=== PATIENT | male | born 1960 | race Two or more races ===

== ENCOUNTER 2016-11-22 05:55 | Inpatient (IN) | payer OTHER, SELFPAY ==
[~2016-11-22] VITALS: Ht 165.1 cm; Wt 75.3 kg
[~2016-11-22 05:55] MED LIST: /AMLO25TA OR; ASPI325T5 PO; FLAG500T PO; LISI20TA PO; NAPRPOW4 PO; NICO21PAT EXT; PERCOCET OR; [UNRECOGNIZED DRUG - REMARK]
[2016-11-22 06:51] LABS: ADD MANUAL DIFFER YES; MEAN CORPUSCULAR HEMOGLOBIN 40.5 pg (27.0-33.0); MEAN CORPUSCULAR HGB CONC 33.9 g/dl (32.0-36.5); MEAN CORPUSCULAR VOLUME 119.5 fl (80.0-96.0); PLATELET COUNT, AUTOMATED 242 k/mm3 (150-450); RED CELL DISTRIBUTION WIDTH 15.2 % (11.5-14.5); WHITE BLOOD COUNT 15.4 K/mm3 (4.0-10.0)
[2016-11-22 06:54] LABS: ALBUMIN 1.5 GM/DL (3.2-5.2); ALBUMIN/GLOBULIN RATIO 0.26 (1.00-1.93); ALKALINE PHOSPHATASE 211 U/L (45-117); ALT/SGPT 34 U/L (12-78); AMYLASE 34 U/L (25-115); ANION GAP 13 MEQ/L (8-16); AST/SGOT 199 U/L (15-37); BILIRUBIN,DIRECT 8.1 MG/DL (0.0-0.2); BILIRUBIN,TOTAL 11.9 MG/DL (0.2-1.0); BLOOD UREA NITROGEN 18 MG/DL (7-18); CALCIUM LEVEL 7.7 MG/DL (8.5-10.1); CARBON DIOXIDE LEVEL 29 MEQ/L (21-32); CHLORIDE LEVEL 87 MEQ/L (98-107); CREATININE FOR GFR 0.96 MG/DL (0.70-1.30); GLOMERULAR FILTRATION RATE > 60.0 (>56); GLUCOSE, FASTING 94 MG/DL (70-105); POTASSIUM SERUM 3.1 MEQ/L (3.5-5.1); SODIUM LEVEL 129 MEQ/L (136-145); TOTAL PROTEIN 7.3 GM/DL (6.4-8.2)
[2016-11-22 07:22] LABS: EOSINOPHILS 1 % (0-5)
[2016-11-22 07:23] LABS: HYPERSEGMENTED POLYS 1+; PLATELET CLUMPS SMALL AMT
[2016-11-22] MEDS ORDERED: NS 500 ML IV ONE (07:30)
--- NOTE | 2016-11-22 07:47 | ECGEPIP ---
Stationary ECG Study [facility] - ED Test Date: 2016-11-22 Pat Name: ASIF JOSHI Department: Room: - Gender: M [employer]: jax : 1960 Requested By: OLGA Harrington Order Number: [id number] Reading MD: Karla Love Measurements Intervals [place] Rate: 101 P: 56 WA: 180 QRS: 55 QRSD: 83 T: 52 QT: 370 QTc: 480 Interpretive Statements SINUS TACHYCARDIA ABNORMAL RHYTHM ECG RIGHT VENTRICULAR CONDUCTION DELAY NO PRIOR FOR COMPARISON Electronically Signed On 11-22-2016 7:47:17 EDT by Karla Love
[2016-11-22 08:22] LABS: INR 1.38
--- NOTE | 2016-11-22 08:28 | REP ---
Clinical: Epigastric and abdominal pain. Technique: Upright view of the chest with supine and upright views of the abdomen and pelvis. Findings: Frontal upright view of the chest demonstrates no acute cardiopulmonary process or free air below the diaphragm to suspect pneumoperitoneum. Supine and upright views of the abdomen and pelvis demonstrate nonspecific bowel gas pattern without obstruction or perforation. No organomegaly. No abnormal calcifications. Skeletal structures normal for age. Impression: Nonspecific bowel gas pattern. Signed by Guillermo Robertson MD 11/22/2016 08:20 A
[2016-11-22] MEDS ORDERED: POTASSIUM CHLORIDE 10 MEQ SR TABLET PO SCH (09:00)
--- NOTE | 2016-11-22 09:25 | REP ---
Clinical: Acute abdominal pain. Technique: Clark scale ultrasound using curved array transducer. Findings: The liver is increased echogenicity consistent with fatty infiltration. Moderate amount of ascites noted throughout the visualized upper abdomen. The pancreas is incompletely evaluated due to interposed bowel gas. The gallbladder demonstrates echogenic material without shadowing most likely representing tumor effective sludge and small stones. Mild gallbladder wall thickening to 4 mm is appreciated. No biliary ductal dilatation is identified and the common bile duct measures 3 mm diameter. The right kidney is normal in reniform shape and appearance without hydronephrosis and measures 11.3 x 6.0 x 5.4 cm. Impression: 1. Gallbladder with presumed tumefactive sludge and mild wall thickening which may be secondary to chronic ascites. No biliary ductal dilatation. 2. Fatty infiltration to the liver. 3. Moderate ascites. Signed by Guillermo Robertson MD 11/22/2016 09:17 A
--- NOTE | 2016-11-22 09:35 | REP ---
SCROTAL SONOGRAPHY: HISTORY: Testicular pain. FINDINGS: Testicular parenchyma is homogeneous bilaterally. There is one microcalcification in the right testis. There are small bilateral hydroceles. There is a 2 mm cyst in the head of the epididymis on each side. No intratesticular mass lesion is seen. Testicular Doppler flow is normal bilaterally. The resistive index on the right is 0.33 and that on the left is 0.41 by Doppler. Right testicular dimensions are 4.0 x 1.6 x 3.2 cm. Left testis measures 4.1 x 1.7 x 2.5 cm. IMPRESSION: Unremarkable scrotal sonography. No significant abnormality noted. Signed by Chacorta Bal MD 11/22/2016 05:09 P
[2016-11-22] MEDS ORDERED: ONDANSETRON 4MG/2ML VIAL (J2405) IV PRN (12:30)
[2016-11-22 13:50] LABS: LDH, BODY FLUID 66 U/L (NOT ESTABLISHED); TOTAL PROTEIN, BODY FLUID 1.8 G/DL (NOT ESTABLISHED)
[2016-11-22 15:15] VITALS: BP 130/70
[2016-11-22] MEDS ORDERED: OXAZEPAM 10 MG CAP PO PRN (15:15)
[2016-11-22] MEDS ORDERED: POTASSIUM CHLORIDE 10 MEQ SR TABLET PO ONE (15:15)
[2016-11-22 15:37] VITALS: BP 118/60
[2016-11-22] MEDS: THIAMINE 100 MG TAB PO SCH (15:50)
[2016-11-22] MEDS: SPIRONOLACTONE 50 MG TAB PO SCH (15:50)
[2016-11-22] MEDS: FUROSEMIDE 40 MG/4 ML VIAL (J1940) IV SCH (15:50)
[2016-11-22] MEDS: LACTULOSE 20 GM/30 ML SYRUP UD PO PRN (15:50)
[2016-11-22] MEDS: FOLIC ACID 1 MG TAB PO SCH (15:51)
--- NOTE | 2016-11-22 16:30 | REP ---
ULTRASOUND GUIDED PARACENTESIS: The procedure was performed under the direct supervision of Dr. Bal. The risks and benefits of the procedure were explained to the patient and informed consent was obtained. The largest pocket of fluid was localized in the left flank using ultrasound guidance. The skin was prepped and draped in a sterile fashion. 1% Lidocaine was used as a local anesthetic. An 8-Irish [id number] catheter was inserted using trocar technique. 2850 mL of yellow-green fluid was withdrawn with a sample sent to the lab for analysis. The patient tolerated the procedure well and there were no immediate complications. Reviewed by ALFREDO English 11/22/2016 04:39 PEdited and Signed by Chacorta Bal MD 11/22/2016 04:54 P
--- NOTE | 2016-11-22 16:33 | HPE ---
DATE OF ADMISSION: 11/22/2016 PRIMARY CARE PROVIDER: 's Administration CHIEF COMPLAINT: Increasing abdominal swelling for the past three weeks, brown colored urine for four weeks. Abdominal discomfort and pain for two weeks and inability to eat anything solid for the past one week. HISTORY OF PRESENT ILLNESS : This is a 56-year-old male with 30 year history of alcohol abuse, drinks about 4 to 5 whiskeys per day, has been feeling unwell for the past 4 to 6 months. Feeling weaker and more tired, more malaise. Over the past 3 to 4 weeks, his symptoms had worsened. He started noticing brown colored urine about 4 weeks ago, then he started noticing swelling of the abdomen for the past three weeks along with sensation of bloating and pain in the belly for 2 to 3 weeks. He then noticed his appetite has also worsened; and over the past week, he has been unable to eat anything solid, has been only drinking sips of liquid. This morning he was feeling very sick with severe belly abdominal pain and nausea and could not wait to see his doctor and so came to the emergency room. His last alcoholic drink was 7 days ago. In the emergency department (ED), he was noted to be jaundiced with distended abdomen having ascites. The patient's laboratory studies were significant with a white blood count (WBC) of 15.4, hemoglobin of 11.2, sodium 129, potassium 3.1, total bilirubin of 11.9, direct of 8.1, alkaline phosphatase 211. His lactic acid was 3.3. INR was 1.38. He underwent paracentesis in the emergency room and had 2.8 liters of fluid removed. The fluid albumin level was only 0.7. He was admitted to the hospitalist service for cirrhosis of liver with ascites and jaundice. PAST MEDICAL HISTORY: 1. History of migraines. 2. Hypertension. 3. Kidney stones. PAST SURGICAL HISTORY: None. SOCIAL HISTORY: The patient abuses alcohol, drinks about 4 to 5 whiskey shots per night, also smokes one pack of cigarettes per day, does not abuse any other recreational drugs. ALLERGIES: PENICILLIN. HOME MEDICATIONS: None. REVIEW OF SYSTEMS: The patient denies any fever or chills. Denies any chest pain or shortness of breath. Denies any diarrhea. Denies any vomiting. Denies any confusion, anxiety or agitation. PHYSICAL EXAMINATION: VITAL SIGNS: Temperature 99.2, pulse 95, respiratory rate 18, blood pressure 96/52, pulse oximetry 97% on room air. GENERAL: The patient awake, alert, and oriented times three, lying down in bed in no acute distress. HEENT: Normocephalic, atraumatic. Moist mucous membranes. Icterus present in the eyes and on the skin. CHEST: Mild bilateral wheezing present. CARDIOVASCULAR: S1, S2 regular. No rub, murmur or gallop. ABDOMEN: Distended, soft, nontender. Bowel sounds are present. ASCITES PRESENT. SKIN: There is spider angioma present and skin is icteric. EXTREMITIES: No edema. LABORATORY DATA: White blood count (WBC) 15.4, hemoglobin 11.2, platelets 242. Sodium 129, potassium 3.1, chloride 87, bicarbonate 29, BUN 18, creatine 0.9, glucose 94, lactic acid 3.3, calcium 7.7, total bilirubin 11.9, direct 8.1, AST 199, ALT 34, alkaline phosphatase 211, lactic dehydrogenase is 336, total protein 7.3, albumin 1.5, amylase 34, lipase 231, INR 1.38. Gallbladder ultrasound showed sludge and mild wall thickening, which can be secondary to chronic ascites. No biliary ductal dilation. There is slight infiltration of the liver, moderate ascites. Scrotal ultrasound is unremarkable. Abdominal x-ray: Nonspecific bowel gas pattern. ASSESSMENT AND PLAN: This is a 56-year-old male admitted with decompensated alcoholic cirrhosis with ascites and jaundice. PLAN: 1. Decompensated alcohol cirrhosis. The patient had paracentesis done, which was very low protein, awaking Gram-stain and culture to evaluate for SBP. Will start the patient on Lasix and spironolactone. Will also give thiamine and folate. 2. Hypokalemia. Will replace potassium. 3. Alcohol abuse. Will watch for alcohol withdrawal, last drink was 7 days ago, will continue with Serax as needed. Continue with the thiamine and folate. 4. Jaundice is probably due to cirrhosis. We have ordered hepatitis profile, C and B. Deep vein thrombosis (DVT) prophylaxis has been ordered.
[2016-11-22] MEDS: rifAXIMin 550 MG TAB (XIFAXAN) PO SCH (20:27)
[2016-11-22] MEDS ORDERED: RAMELTEON 8 MG TAB (ROZEREM) PO ONE (21:00)
[2016-11-22 22:00] VITALS: BP 106/65
[2016-11-23 06:00] VITALS: BP 109/61
[2016-11-23 07:22] LABS: ADD MANUAL DIFFER YES; MEAN CORPUSCULAR HEMOGLOBIN 40.8 pg (27.0-33.0); MEAN CORPUSCULAR HGB CONC 34.3 g/dl (32.0-36.5); MEAN CORPUSCULAR VOLUME 119.1 fl (80.0-96.0); PLATELET COUNT, AUTOMATED 207 k/mm3 (150-450); WHITE BLOOD COUNT 15.4 K/mm3 (4.0-10.0)
[2016-11-23 07:27] LABS: ALBUMIN 1.4 GM/DL (3.2-5.2); ALBUMIN/GLOBULIN RATIO 0.28 (1.00-1.93); ALKALINE PHOSPHATASE 224 U/L (45-117); ALT/SGPT 34 U/L (12-78); ANION GAP 8 MEQ/L (8-16); AST/SGOT 222 U/L (15-37); BILIRUBIN,TOTAL 10.7 MG/DL (0.2-1.0); BLOOD UREA NITROGEN 20 MG/DL (7-18); CALCIUM LEVEL 7.8 MG/DL (8.5-10.1); CARBON DIOXIDE LEVEL 33 MEQ/L (21-32); CHLORIDE LEVEL 88 MEQ/L (98-107); GLOMERULAR FILTRATION RATE > 60.0 (>56); GLUCOSE, FASTING 98 MG/DL (70-105); MAGNESIUM LEVEL 2.1 MG/DL (1.8-2.4); POTASSIUM SERUM 2.8 MEQ/L (3.5-5.1); SODIUM LEVEL 129 MEQ/L (136-145); TOTAL PROTEIN 6.4 GM/DL (6.4-8.2)
[2016-11-23] MEDS ORDERED: POTASSIUM CHLORIDE 10 MEQ SR TABLET PO ONE (08:00)
[2016-11-23 08:16] LABS: BANDS 1 % (< 11); EOSINOPHILS 1 % (0-5)
[2016-11-23 08:17] LABS: ANISOCYTOSIS 2+
[2016-11-23 09:15] LABS: RBC ASCITES FLUID < 10 (<10mm3 cells/uL); TNC ASCITES FLUID 60 cells/uL (0-20)
[2016-11-23] MEDS: SPIRONOLACTONE 50 MG TAB PO SCH (09:50)
[2016-11-23] MEDS: FUROSEMIDE 40 MG/4 ML VIAL (J1940) IV SCH (09:50)
[2016-11-23] MEDS: THIAMINE 100 MG TAB PO SCH (09:51)
[2016-11-23] MEDS: rifAXIMin 550 MG TAB (XIFAXAN) PO SCH ×2 (09:51→20:06)
[2016-11-23] MEDS: POTASSIUM CHLORIDE 10 MEQ SR TABLET PO SCH (09:51)
[2016-11-23] MEDS: FOLIC ACID 1 MG TAB PO SCH (09:51)
[2016-11-23 10:02] LABS: BF DIFF IF INDICATED? YES (NO)
--- NOTE | 2016-11-23 10:24 | IPNPDOC ---
Subjective Date Seen The patient was seen on 11/23/16. Subjective Chief Complaint/HPI The patient is a 56-year-old male admitted with a reason for visit of Ascites Jaundice. Events since last encounter said could not sleep last night, has poor appetite still feeling bloated with discomfort feels needs more fluid removed, no fever or chills, no chest pain or sob. No diarrhea or constipation. Objective Physical Examination General Exam: Positive: Alert, Cooperative, No Acute Distress Eye Exam: Positive: PERRLA, Conjunctiva & lids normal, EOMI, Sclera icteric ENT Exam: Positive: Atraumatic, Mucous membr. moist/pink, Pharynx Normal Neck Exam: Positive: Supple, Negative: JVD, thyromegaly Chest Exam: Positive: Normal air movement, Rhonchi Heart Exam: Positive: Rate Normal, Regular Rhythm, Normal S1, Normal S2, Negative: Murmurs, Rubs Abdomen Exam: Positive: Normal bowel sounds, Soft, Hepatospenomegaly, Other ( ascitis) Extremity Exam: Positive: Normal pulses, Negative: Clubbing, Cyanosis, Edema Skin Exam: Positive: Other skin issue (spider angiomas. ) Assessment /Plan Problems (1) Decompensation of cirrhosis of liver Status: Acute Problem Text: With ascitis, portal hypertension, jaundice. No SBP, no GIB, NO encephalopathy. will continue lasix and spironolactone and lactulose prn will give rifaximin for sbp prophylaxis. Had 2800 ml fluid tapped. (2) Alcohol abuse Status: Chronic (3) Tobacco abuse Status: Chronic Problem Text: counselled about stopped he is going to try by himself (4) Jaundice Status: Acute Problem Text: no biliary duct obstruction possibly due to cirrhosis and ascitis awaiting hepatitis serology (5) Hypokalemia Status: Acute Problem Text: replaced. (6) Hyponatremia Status: Acute Problem Text: due to cirrhosis will check urine lytes and osmolality. Plan/VTE VTE Prophylaxis Ordered?: Yes VS, I&O, 24H, Fishbone Vital Signs/I&O Vital Signs Date Time Temp Pulse Resp B/P (MAP) Pulse Ox O2 Delivery O2 Flow Rate FiO2 11/23/16 06:00 98.4 91 18 109/61 (77) 95 Room Air I&O- Last 24 Hours up to 6 AM 11/23/16 06:00 Intake Total 1400 ml Output Total 250 ml Balance 1150 ml Laboratory Data 24H LABS Laboratory Tests 2 11/22/16 12:31: Body Fluid Source ASCITES, Body Fluid Color YELLOW, Body Fluid Appearance CLEAR , Body Fluid RBC (Auto) < 10, Body Fluid Total Nucleated Cells 60H, Body Fluid Protein Source ASCITES, Body Fluid Total Protein 1.8, Body Fluid Albumin Source ASCITES, Body Fluid Albumin 0.7, Body Fluid LDH Source ASCITES, Body Fluid Lactate Dehydrogenase 66, Body Fluid Amylase Source ASCITES, Body Fluid Amylase 11 11/22/16 15:35: Lactic Acid Followup at 4 Hours 2.3*H 11/23/16 06:39: Neutrophils 88H, Band Neutrophils 1, Lymphocytes (Manual) 10L, Eosinophils ( Manual) 1, Platelet Estimate NORMAL, Anisocytosis 2+, Macrocytosis 2+, Anion Gap 8, Glomerular Filtration Rate > 60.0, Blood Urea Nitrogen 20H, Creatinine 0.70, Sodium Level 129L, Potassium Level 2.8*L, Chloride Level 88L, Carbon Dioxide Level 33H, Calcium Level 7.8L, Aspartate Amino Transf (AST/SGOT) 222H, Alanine Aminotransferase (ALT/SGPT) 34, Alkaline Phosphatase 224H, Total Bilirubin 10.7H, Total Protein 6.4, Albumin 1.4L, Magnesium Level 2.1, Albumin/ Globulin Ratio 0.28L CBC/BMP Laboratory Tests 11/23/16 06:39 Red Blood Count 2.46 L, Mean Corpuscular Volume 119.1 H, Mean Corpuscular Hemoglobin 40.8 H, Mean Corpuscular Hemoglobin Concent 34.3, Red Cell Distribution Width 15.0 H, Calcium Level 7.8 L, Aspartate Amino Transf (AST/SGOT ) 222 H, Alanine Aminotransferase (ALT/SGPT) 34, Alkaline Phosphatase 224 H, Total Bilirubin 10.7 H, Total Protein 6.4, Albumin 1.4 L Microbiology Microbiology 11/22/16 Blood Culture - Preliminary, Resulted No growth after 24 hours . All specim... 11/22/16 Blood Culture - Preliminary, Resulted No growth after 24 hours . All specim... 11/22/16 Gram Stain - Final, Resulted 11/22/16 Body Fluid Culture, Resulted Pending DARRYL GOODMAN MD Nov 23, 2016 10:24
[2016-11-23 11:22] LABS: URIC ACID 6.2 MG/DL (3.5-7.2)
[2016-11-23 12:17] LABS: OSMOLALITY URINE 312 MOSM/KG (500-800)
[2016-11-23 13:01] LABS: CC BF DIFF EXAM CYTOCENTRIFUGE
[2016-11-23 14:00] VITALS: BP 104/59
[2016-11-23] MEDS ORDERED: MORPHINE 2 MG/ML 1ML SYRINGE IV ONE (20:00)
[2016-11-23 22:00] VITALS: BP 90/52
[2016-11-23] MEDS ORDERED: PREGABALIN 50 MG CAP (LYRICA) PO ONE (22:30)
[2016-11-24 06:00] VITALS: BP 106/64
[2016-11-24 06:05] LABS: BASO # 0.1 K/mm3 (0.0-0.2); BASO % 0.7 % (0.0-1.0); EOS # 0.3 K/mm3 (0.0-0.50); EOS % 1.9 % (0.0-3.0); LARGE UNSTAINED CELL # 0.2 K/mm3 (0.0-0.4); LARGE UNSTAINED CELL % 0.9 % (0.0-4.0); LYMPH # 1.1 K/mm3 (1.5-4.5); LYMPH % 6.1 % (24.0-44.0); MEAN CORPUSCULAR HEMOGLOBIN 40.6 pg (27.0-33.0); MEAN CORPUSCULAR VOLUME 119.4 fl (80.0-96.0); MONO # 0.4 K/mm3 (0.0-0.8); MONO % 2.5 % (0.0-5.0); NEUTROPHILS # 14.2 K/mm3 (1.8-7.7); NEUTROPHILS % 87.9 % (36.0-66.0); PLATELET COUNT, AUTOMATED 218 k/mm3 (150-450); RED CELL DISTRIBUTION WIDTH 15.1 % (11.5-14.5); WHITE BLOOD COUNT 16.1 K/mm3 (4.0-10.0)
[2016-11-24 06:36] LABS: ALBUMIN 1.4 GM/DL (3.2-5.2); ALBUMIN/GLOBULIN RATIO 0.28 (1.00-1.93); ALKALINE PHOSPHATASE 270 U/L (45-117); ALT/SGPT 40 U/L (12-78); ANION GAP 9 MEQ/L (8-16); AST/SGOT 249 U/L (15-37); BILIRUBIN,TOTAL 11.1 MG/DL (0.2-1.0); BLOOD UREA NITROGEN 22 MG/DL (7-18); CALCIUM LEVEL 7.9 MG/DL (8.5-10.1); CARBON DIOXIDE LEVEL 30 MEQ/L (21-32); CHLORIDE LEVEL 89 MEQ/L (98-107); CREATININE FOR GFR 0.74 MG/DL (0.70-1.30); GLOMERULAR FILTRATION RATE > 60.0 (>56); GLUCOSE, FASTING 102 MG/DL (70-105); POTASSIUM SERUM 3.3 MEQ/L (3.5-5.1); SODIUM LEVEL 128 MEQ/L (136-145); TOTAL PROTEIN 6.4 GM/DL (6.4-8.2)
--- NOTE | 2016-11-24 08:07 | IPNPDOC ---
Subjective Date Seen The patient was seen on 11/24/16. Subjective Chief Complaint/HPI The patient is a 56-year-old male admitted with a reason for visit of Ascites Jaundice. Events since last encounter No new complaints, had low grade fever last night , still with abdominal discomfort, no diarrhea, no confusion , no chest pain or sob. Objective Physical Examination General Exam: Positive: Alert, Cooperative, No Acute Distress Eye Exam: Positive: PERRLA, Conjunctiva & lids normal, EOMI, Sclera icteric ENT Exam: Positive: Atraumatic, Mucous membr. moist/pink, Pharynx Normal Neck Exam: Positive: Supple, Negative: JVD, thyromegaly Chest Exam: Positive: Normal air movement, Rhonchi Heart Exam: Positive: Rate Normal, Regular Rhythm, Normal S1, Normal S2, Negative: Murmurs, Rubs Abdomen Exam: Positive: Normal bowel sounds, Soft, Hepatospenomegaly, Other ( ascitis) Extremity Exam: Positive: Normal pulses, Negative: Clubbing, Cyanosis, Edema Skin Exam: Positive: Other skin issue (spider angiomas. ) Assessment /Plan Problems (1) Decompensation of cirrhosis of liver Status: Acute Problem Text: With ascitis, portal hypertension, jaundice. No SBP, no GIB, NO encephalopathy. will continue lasix and spironolactone and lactulose prn will give rifaximin for sbp prophylaxis. Had 2800 ml fluid tapped. (2) Alcohol abuse Status: Chronic (3) Tobacco abuse Status: Chronic Problem Text: counselled about stopped he is going to try by himself (4) Jaundice Status: Acute Problem Text: no biliary duct obstruction possibly due to cirrhosis and ascitis awaiting hepatitis serology (5) Hypokalemia Status: Acute Problem Text: replaced. (6) Hyponatremia Status: Acute Problem Text: due to cirrhosis will check urine lytes and osmolality. Plan/VTE VTE Prophylaxis Ordered?: Yes VS, I&O, 24H, Fishbone Vital Signs/I&O Vital Signs Date Time Temp Pulse Resp B/P (MAP) Pulse Ox O2 Delivery O2 Flow Rate FiO2 11/24/16 06:00 100.4 94 18 106/64 (78) 92 Room Air I&O- Last 24 Hours up to 6 AM 11/24/16 06:00 Intake Total 840 ml Output Total 0 ml Balance 840 ml Laboratory Data 24H LABS Laboratory Tests 2 11/23/16 11:13: Urine Appearance CLEAR, Urine Color BRENDA, Urine pH 7.0, Urine Specific [place] 1.005, Urine Protein NEGATIVE, Urine Glucose (UA) NEGATIVE, Urine Ketones NEGATIVE, Urine Urobilinogen 4.0H, Urine Bilirubin NEGATIVE, Urine Leukocyte Esterase NEGATIVE, Urine Blood NEGATIVE, Urine Nitrite NEGATIVE, Urine WBC (Auto ) 1, Urine RBC (Auto) 1, Urine Hyaline Casts (Auto) 0, Urine Bacteria (Auto) NEGATIVE, Urine Squamous Epithelial Cells 0, Urine Mucus (Auto) SMALL, Urine Sperm (Auto) , Urine Random Osmolality 312L, Urine Random Sodium 100 11/24/16 05:44: White Blood Count 16.1H, Red Blood Count 2.57L, Hemoglobin 10.4L, Hematocrit 30.7L, Mean Corpuscular Volume 119.4H, Mean Corpuscular Hemoglobin 40.6H, Mean Corpuscular Hemoglobin Concent 34.0, Red Cell Distribution Width 15.1H, Platelet Count 218, Neutrophils (%) (Auto) 87.9H, Lymphocytes (%) (Auto) 6.1L, Monocytes (%) (Auto) 2.5, Eosinophils (%) (Auto) 1.9, Basophils (%) (Auto) 0.7, Neutrophils # (Auto) 14.2H, Lymphocytes # (Auto) 1.1L, Monocytes # (Auto) 0.4, Eosinophils # (Auto) 0.3, Basophils # (Auto) 0.1, Large Unclassified Cells % 0.9 , Large Unclassified Cells # 0.2, Anion Gap 9, Glomerular Filtration Rate > 60.0 , Blood Urea Nitrogen 22H, Creatinine 0.74, Sodium Level 128L, Potassium Level 3.3L, Chloride Level 89L, Carbon Dioxide Level 30, Calcium Level 7.9L, Aspartate Amino Transf (AST/SGOT) 249H, Alanine Aminotransferase (ALT/SGPT) 40, Alkaline Phosphatase 270H, Total Bilirubin 11.1H, Total Protein 6.4, Albumin 1.4L, Magnesium Level 2.0, Albumin/Globulin Ratio 0.28L CBC/BMP Laboratory Tests 11/24/16 05:44 Red Blood Count 2.57 L, Mean Corpuscular Volume 119.4 H, Mean Corpuscular Hemoglobin 40.6 H, Mean Corpuscular Hemoglobin Concent 34.0, Red Cell Distribution Width 15.1 H, Neutrophils (%) (Auto) 87.9 H, Lymphocytes (%) (Auto ) 6.1 L, Monocytes (%) (Auto) 2.5, Eosinophils (%) (Auto) 1.9, Basophils (%) ( Auto) 0.7, Neutrophils # (Auto) 14.2 H, Lymphocytes # (Auto) 1.1 L, Monocytes # (Auto) 0.4, Eosinophils # (Auto) 0.3, Basophils # (Auto) 0.1, Calcium Level 7.9 L, Aspartate Amino Transf (AST/SGOT) 249 H, Alanine Aminotransferase (ALT/SGPT) 40, Alkaline Phosphatase 270 H, Total Bilirubin 11.1 H, Total Protein 6.4, Albumin 1.4 L Microbiology Microbiology 11/22/16 Blood Culture - Preliminary, Resulted No Growth after 48 hours. All Specime... 11/22/16 Blood Culture - Preliminary, Resulted No Growth after 48 hours. All Specime... 11/22/16 Gram Stain - Final, Complete 11/22/16 Body Fluid Culture - Final, Complete 11/23/16 Urine Culture, Received Pending DARRYL GOODMAN MD Nov 24, 2016 08:07
[2016-11-24] MEDS ORDERED: ALBUTEROL SULFATE 2.5 MG/0.5 ML INH NEB SOLN NEB PRN (08:15)
[2016-11-24] MEDS: FOLIC ACID 1 MG TAB PO SCH (10:08)
[2016-11-24] MEDS: SPIRONOLACTONE 50 MG TAB PO SCH (10:08)
[2016-11-24] MEDS: POTASSIUM CHLORIDE 10 MEQ SR TABLET PO SCH (10:09)
[2016-11-24] MEDS: rifAXIMin 550 MG TAB (XIFAXAN) PO SCH ×2 (10:09→19:54)
[2016-11-24] MEDS: FUROSEMIDE 40 MG/4 ML VIAL (J1940) IV SCH (10:09)
[2016-11-24] MEDS: THIAMINE 100 MG TAB PO SCH (10:09)
[2016-11-24 14:00] VITALS: BP 102/63
[2016-11-24 22:00] VITALS: BP 102/65
[2016-11-25 06:00] VITALS: BP 105/63
[2016-11-25 06:31] LABS: ADD MANUAL DIFFER YES; MEAN CORPUSCULAR HEMOGLOBIN 41.2 pg (27.0-33.0); MEAN CORPUSCULAR HGB CONC 34.3 g/dl (32.0-36.5); PLATELET COUNT, AUTOMATED 213 k/mm3 (150-450); RED CELL DISTRIBUTION WIDTH 14.6 % (11.5-14.5); WHITE BLOOD COUNT 16.5 K/mm3 (4.0-10.0)
[2016-11-25 06:43] LABS: ALBUMIN 1.4 GM/DL (3.2-5.2); ALBUMIN/GLOBULIN RATIO 0.26 (1.00-1.93); ALKALINE PHOSPHATASE 283 U/L (45-117); ALT/SGPT 44 U/L (12-78); ANION GAP 10 MEQ/L (8-16); AST/SGOT 228 U/L (15-37); BILIRUBIN,TOTAL 10.9 MG/DL (0.2-1.0); BLOOD UREA NITROGEN 20 MG/DL (7-18); CALCIUM LEVEL 7.7 MG/DL (8.5-10.1); CARBON DIOXIDE LEVEL 28 MEQ/L (21-32); CHLORIDE LEVEL 91 MEQ/L (98-107); CREATININE FOR GFR 0.75 MG/DL (0.70-1.30); GLOMERULAR FILTRATION RATE > 60.0 (>56); GLUCOSE, FASTING 101 MG/DL (70-105); MAGNESIUM LEVEL 1.8 MG/DL (1.8-2.4); POTASSIUM SERUM 3.3 MEQ/L (3.5-5.1); SODIUM LEVEL 129 MEQ/L (136-145); TOTAL PROTEIN 6.7 GM/DL (6.4-8.2)
[2016-11-25 06:55] LABS: BANDS 1 % (< 11); EOSINOPHILS 1 % (0-5)
[2016-11-25 06:56] LABS: ANISOCYTOSIS 1+
[2016-11-25] MEDS ORDERED: POTASSIUM CHLORIDE 10 MEQ SR TABLET PO ONE (07:30)
[2016-11-25] MEDS: SPIRONOLACTONE 50 MG TAB PO SCH (09:14)
[2016-11-25] MEDS: rifAXIMin 550 MG TAB (XIFAXAN) PO SCH ×2 (09:14→21:24)
[2016-11-25] MEDS: FOLIC ACID 1 MG TAB PO SCH (09:14)
[2016-11-25] MEDS: POTASSIUM CHLORIDE 10 MEQ SR TABLET PO SCH ×2 (09:14→21:25)
[2016-11-25] MEDS: THIAMINE 100 MG TAB PO SCH (09:14)
[2016-11-25] MEDS: FUROSEMIDE 40 MG/4 ML VIAL (J1940) IV SCH (09:15)
--- NOTE | 2016-11-25 10:22 | IPNPDOC ---
Subjective Date Seen The patient was seen on 11/25/16. Subjective Chief Complaint/HPI The patient is a 56-year-old male admitted with a reason for visit of Ascites Jaundice. Events since last encounter complains of bilateral feet pain and burning, also continues to have abdominal discomfort, also complaining of acid reflux. Objective Physical Examination General Exam: Positive: Alert, Cooperative, No Acute Distress Eye Exam: Positive: PERRLA, Conjunctiva & lids normal, EOMI, Sclera icteric ENT Exam: Positive: Atraumatic, Mucous membr. moist/pink, Pharynx Normal Neck Exam: Positive: Supple, Negative: JVD, thyromegaly Chest Exam: Positive: Normal air movement, Rhonchi Heart Exam: Positive: Rate Normal, Regular Rhythm, Normal S1, Normal S2, Negative: Murmurs, Rubs Abdomen Exam: Positive: Normal bowel sounds, Soft, Hepatospenomegaly, Other ( ascitis) Extremity Exam: Positive: Normal pulses, Negative: Clubbing, Cyanosis, Edema Skin Exam: Positive: Other skin issue (spider angiomas. ) Assessment /Plan Problems (1) Decompensation of cirrhosis of liver Status: Acute Problem Text: With ascitis, portal hypertension, jaundice. No SBP, no GIB, NO encephalopathy. will continue lasix and spironolactone and lactulose prn will give rifaximin for sbp prophylaxis. Had 2800 ml fluid tapped. (2) Alcohol abuse Status: Chronic (3) Tobacco abuse Status: Chronic Problem Text: counselled about stopped he is going to try by himself (4) Jaundice Status: Acute Problem Text: no biliary duct obstruction possibly due to cirrhosis and ascitis awaiting hepatitis serology (5) Hypokalemia Status: Acute Problem Text: replaced. (6) Hyponatremia Status: Acute Problem Text: due to cirrhosis will check urine lytes and osmolality. (7) Peripheral neuropathy Status: Chronic Problem Text: due to alcohol will start on gabapentin will get PT evaluation Plan/VTE VTE Prophylaxis Ordered?: Yes VS, I&O, 24H, Fishbone Vital Signs/I&O Vital Signs Date Time Temp Pulse Resp B/P (MAP) Pulse Ox O2 Delivery O2 Flow Rate FiO2 11/25/16 06:00 97.9 91 18 105/63 (77) 96 Room Air I&O- Last 24 Hours up to 6 AM 11/25/16 05:59 Intake Total 1500 ml Output Total 850 ml Balance 650 ml Laboratory Data 24H LABS Laboratory Tests 2 11/25/16 06:07: Neutrophils 91H, Band Neutrophils 1, Lymphocytes (Manual) 4L, Monocytes (Manual ) 3, Eosinophils (Manual) 1, Platelet Estimate NORMAL, Anisocytosis 1+, Macrocytosis 3+, Anion Gap 10, Glomerular Filtration Rate > 60.0, Blood Urea Nitrogen 20H, Creatinine 0.75, Sodium Level 129L, Potassium Level 3.3L, Chloride Level 91L, Carbon Dioxide Level 28, Calcium Level 7.7L, Aspartate Amino Transf (AST/SGOT) 228H, Alanine Aminotransferase (ALT/SGPT) 44, Alkaline Phosphatase 283H, Total Bilirubin 10.9H, Total Protein 6.7, Albumin 1.4L, Magnesium Level 1.8, Albumin/Globulin Ratio 0.26L CBC/BMP Laboratory Tests 11/25/16 06:07 Red Blood Count 2.57 L, Mean Corpuscular Volume 120.0 H, Mean Corpuscular Hemoglobin 41.2 H, Mean Corpuscular Hemoglobin Concent 34.3, Red Cell Distribution Width 14.6 H, Calcium Level 7.7 L, Aspartate Amino Transf (AST/SGOT ) 228 H, Alanine Aminotransferase (ALT/SGPT) 44, Alkaline Phosphatase 283 H, Total Bilirubin 10.9 H, Total Protein 6.7, Albumin 1.4 L Microbiology Microbiology 11/22/16 Blood Culture - Preliminary, Resulted No Growth after 72 hours. All specime... 11/22/16 Blood Culture - Preliminary, Resulted No Growth after 72 hours. All specime... 11/22/16 Gram Stain - Final, Complete 11/22/16 Body Fluid Culture - Final, Complete 11/23/16 Urine Culture - Final, Complete DARRYL GOODMAN MD Nov 25, 2016 10:22
[2016-11-25] MEDS: LACTULOSE 20 GM/30 ML SYRUP UD PO PRN (11:16)
[2016-11-25] MEDS: GABAPENTIN 100 MG CAP PO SCH ×2 (11:16→21:25)
[2016-11-25 14:00] VITALS: BP 88/50
[2016-11-25] MEDS: FAMOTIDINE 20 MG TAB PO SCH (21:25)
[2016-11-25 22:00] VITALS: BP 110/67
[2016-11-26 06:00] VITALS: BP 103/58
[2016-11-26 06:16] LABS: ALBUMIN 1.3 GM/DL (3.2-5.2); ALBUMIN/GLOBULIN RATIO 0.26 (1.00-1.93); ALKALINE PHOSPHATASE 281 U/L (45-117); ALT/SGPT 43 U/L (12-78); ANION GAP 8 MEQ/L (8-16); AST/SGOT 202 U/L (15-37); BILIRUBIN,TOTAL 10.5 MG/DL (0.2-1.0); BLOOD UREA NITROGEN 19 MG/DL (7-18); CALCIUM LEVEL 8.1 MG/DL (8.5-10.1); CARBON DIOXIDE LEVEL 27 MEQ/L (21-32); CHLORIDE LEVEL 94 MEQ/L (98-107); CREATININE FOR GFR 0.78 MG/DL (0.70-1.30); GLOMERULAR FILTRATION RATE > 60.0 (>56); GLUCOSE, FASTING 104 MG/DL (70-105); MAGNESIUM LEVEL 2.1 MG/DL (1.8-2.4); POTASSIUM SERUM 4.4 MEQ/L (3.5-5.1); SODIUM LEVEL 129 MEQ/L (136-145); TOTAL PROTEIN 6.3 GM/DL (6.4-8.2)
[2016-11-26 06:23] LABS: ADD MANUAL DIFFER YES; MEAN CORPUSCULAR HEMOGLOBIN 40.6 pg (27.0-33.0); MEAN CORPUSCULAR HGB CONC 33.3 g/dl (32.0-36.5); MEAN CORPUSCULAR VOLUME 121.8 fl (80.0-96.0); PLATELET COUNT, AUTOMATED 216 k/mm3 (150-450); RED CELL DISTRIBUTION WIDTH 15.4 % (11.5-14.5)
[2016-11-26 06:59] LABS: BANDS 1 % (< 11)
[2016-11-26] MEDS ORDERED: GASTROGRAFIN SOLUTION 30ML PO ONE (07:15)
[2016-11-26] MEDS ORDERED: GASTROGRAFIN SOLUTION 30ML (Q9963) PO ONE (07:45)
[2016-11-26] MEDS: rifAXIMin 550 MG TAB (XIFAXAN) PO SCH ×2 (08:57→20:53)
[2016-11-26] MEDS: FOLIC ACID 1 MG TAB PO SCH (08:57)
[2016-11-26] MEDS: GABAPENTIN 100 MG CAP PO SCH ×2 (08:57→20:53)
[2016-11-26] MEDS: THIAMINE 100 MG TAB PO SCH (08:57)
[2016-11-26] MEDS: SPIRONOLACTONE 50 MG TAB PO SCH (08:57)
[2016-11-26] MEDS: FUROSEMIDE 40 MG/4 ML VIAL (J1940) IV SCH ×2 (08:58→16:18)
[2016-11-26] MEDS ORDERED: GABAPENTIN 100 MG CAP PO SCH (09:00)
--- NOTE | 2016-11-26 09:36 | IPNPDOC ---
Subjective Date Seen The patient was seen on 11/26/16. Subjective Chief Complaint/HPI The patient is a 56-year-old male admitted with a reason for visit of Ascites Jaundice. General: Denies: Chills, Night Sweats, Fatigue Constitutional: Denies: Weakness Eyes: Denies: Vision change ENT: Denies: Head Aches Skin: Denies: Rash, Lesions, Jaundice Pulmonary: Denies: Dyspnea, Cough Cardiovascular: Denies: Chest Pain, Palpitations Gastrointestinal: Reports: Nausea, Abdominal Pain (generalized ), Denies: Vomiting, Diarrhea, Constipation, Melena, Hematochezia Genitourinary: Denies: Dysuria Hematologic: Denies: Bruising Psych: Reports: Mood Normal Objective Physical Examination General Exam: Positive: Alert, Cooperative, No Acute Distress Eye Exam: Positive: PERRLA, Conjunctiva & lids normal, EOMI, Sclera icteric ENT Exam: Positive: Atraumatic, Mucous membr. moist/pink, Pharynx Normal Neck Exam: Positive: Supple, Negative: JVD, thyromegaly Chest Exam: Positive: Normal air movement, Rhonchi Heart Exam: Positive: Rate Normal, Regular Rhythm, Normal S1, Normal S2, Negative: Murmurs, Rubs Abdomen Exam: Positive: Normal bowel sounds, Soft, Hepatospenomegaly, Other ( ascitis) Extremity Exam: Positive: Normal pulses, Negative: Clubbing, Cyanosis, Edema Skin Exam: Positive: Other skin issue (spider angiomas. ) Assessment /Plan Problems (1) Decompensation of cirrhosis of liver Status: Acute Problem Text: With ascitis, portal hypertension, jaundice. Pt will have CT ab/pelvis today to evaluate ascities, if it has not decreased, will set pt up for peritoneal tap, and subsequently re-evaluate fluid No SBP, no GIB, NO encephalopathy. Continue lasix and spironolactone and lactulose prn will give rifaximin for sbp prophylaxis. Had 2800 ml fluid tapped. (2) Alcohol abuse Status: Chronic Response to Treatment: Stable (3) Tobacco abuse Status: Chronic Problem Text: counselled about stopped he is going to try by himself (4) Jaundice Status: Acute Problem Text: no biliary duct obstruction Likely 2/2 to cirrhosis and ascities Hep A,B,C negative (5) Hypokalemia Status: Acute Problem Text: 4.4 today stable (6) Hyponatremia Status: Acute Problem Text: due to cirrhosis will check urine lytes and osmolality. urine osmolality low 312, urine Na normal (7) Peripheral neuropathy Status: Chronic Problem Text: due to alcohol continue pt on gabapentin pending PT evaluation Plan/VTE VTE Prophylaxis Ordered?: Yes VS, I&O, 24H, Fishbone Vital Signs/I&O Vital Signs Date Time Temp Pulse Resp B/P (MAP) Pulse Ox O2 Delivery O2 Flow Rate FiO2 11/26/16 08:00 Room Air 11/26/16 06:00 97.1 87 18 103/58 (73) 97 I&O- Last 24 Hours up to 6 AM 11/26/16 05:59 Intake Total 540 ml Output Total 1000 ml Balance -460 ml Laboratory Data 24H LABS Laboratory Tests 2 11/26/16 05:43: Neutrophils 89H, Band Neutrophils 1, Lymphocytes (Manual) 6L, Monocytes (Manual ) 4, Platelet Estimate NORMAL, Macrocytosis 4+, Anion Gap 8, Glomerular Filtration Rate > 60.0, Lactic Acid Level 2.0, Blood Urea Nitrogen 19H, Creatinine 0.78, Sodium Level 129L, Potassium Level 4.4#, Chloride Level 94L, Carbon Dioxide Level 27, Calcium Level 8.1L, Aspartate Amino Transf (AST/SGOT) 202H, Alanine Aminotransferase (ALT/SGPT) 43, Alkaline Phosphatase 281H, Total Bilirubin 10.5H, Total Protein 6.3L, Albumin 1.3L, Magnesium Level 2.1, Albumin/ Globulin Ratio 0.26L CBC/BMP Laboratory Tests 11/26/16 05:43 Red Blood Count 2.57 L, Mean Corpuscular Volume 121.8 H, Mean Corpuscular Hemoglobin 40.6 H, Mean Corpuscular Hemoglobin Concent 33.3, Red Cell Distribution Width 15.4 H, Calcium Level 8.1 L, Aspartate Amino Transf (AST/SGOT ) 202 H, Alanine Aminotransferase (ALT/SGPT) 43, Alkaline Phosphatase 281 H, Total Bilirubin 10.5 H, Total Protein 6.3 L, Albumin 1.3 L Microbiology Microbiology 11/22/16 Blood Culture - Preliminary, Resulted No Growth after 72 hours. All specime... 11/22/16 Blood Culture - Preliminary, Resulted No Growth after 72 hours. All specime... 11/22/16 Gram Stain - Final, Complete 11/22/16 Body Fluid Culture - Final, Complete 11/23/16 Urine Culture - Final, Complete GME ATTESTATION GME ATTESTATION My preceptor for this patient encounter was physically present in the building during the encounter and was fully available. As needed, all aspects of the patient interview, examination, medical decision making process, and medical care plan development were reviewed and approved by the preceptor. Preceptor is aware and concurs with the plan as stated in the body of this note and will attest to such by his/her cosignature. KATHLEEN LAROSE DO Nov 26, 2016 09:36
[2016-11-26 10:30] VITALS: BP 98/48
--- NOTE | 2016-11-26 13:01 | REP ---
CT study of the abdomen and pelvis with oral but without IV contrast: History: Ascites, cirrhosis. Comparison CT study January 08, 2013. CT findings: Preliminary digital color blender radiograph is unremarkable. The lung bases show some minimal linear fibrosis bilaterally. No pleural effusion is seen. The liver is at the upper range of normal in size. No focal hepatic lesion is seen. There is evidence of mild fatty infiltration. The spleen is mildly enlarged measuring 13.1 cm in greatest diameter. There is mild upper abdominal and mild to moderate pelvic diffuse ascites. No pancreatic lesion is seen. No adrenal lesion is observed. No gallbladder abnormalities observed. There is an intrarenal calculus in the upper pole of the left kidney measuring 3-4 mm in size. No hydronephrosis is seen on either side. There is left colonic diverticulosis without CT evidence of diverticulitis. No abdominal wall defect is seen. No bony destructive lesion is appreciated. Impression: Borderline liver size. Mild splenomegaly. Mild diffuse abdominal ascites. 3-4 mm intrarenal calculus left kidney upper pole. Left colonic diverticulosis. Signed by Chacorta Bal MD 11/26/2016 03:49 P
[2016-11-26 13:30] VITALS: BP 90/52
[2016-11-26] MEDS: FAMOTIDINE 20 MG TAB PO SCH (20:52)
[2016-11-26 22:00] VITALS: BP 145/63
[2016-11-27 06:00] VITALS: BP 107/63
[2016-11-27 07:31] LABS: ADD MORPHOLOGY? YES; BASO # 0.1 K/mm3 (0.0-0.2); BASO % 0.3 % (0.0-1.0); EOS # 0.5 K/mm3 (0.0-0.50); EOS % 2.2 % (0.0-3.0); LARGE UNSTAINED CELL # 0.2 K/mm3 (0.0-0.4); LYMPH # 1.2 K/mm3 (1.5-4.5); LYMPH % 4.7 % (24.0-44.0); MEAN CORPUSCULAR HEMOGLOBIN 40.8 pg (27.0-33.0); MEAN CORPUSCULAR HGB CONC 33.6 g/dl (32.0-36.5); MEAN CORPUSCULAR VOLUME 121.3 fl (80.0-96.0); MONO # 0.7 K/mm3 (0.0-0.8); MONO % 3.3 % (0.0-5.0); NEUTROPHILS # 18.9 K/mm3 (1.8-7.7); NEUTROPHILS % 88.6 % (36.0-66.0); PLATELET COUNT, AUTOMATED 214 k/mm3 (150-450); RED CELL DISTRIBUTION WIDTH 15.5 % (11.5-14.5); WHITE BLOOD COUNT 21.4 K/mm3 (4.0-10.0)
[2016-11-27 07:44] LABS: ALBUMIN 1.3 GM/DL (3.2-5.2); ALBUMIN/GLOBULIN RATIO 0.25 (1.00-1.93); ALKALINE PHOSPHATASE 292 U/L (45-117); ALT/SGPT 43 U/L (12-78); ANION GAP 9 MEQ/L (8-16); AST/SGOT 200 U/L (15-37); BILIRUBIN,TOTAL 10.1 MG/DL (0.2-1.0); BLOOD UREA NITROGEN 21 MG/DL (7-18); CALCIUM LEVEL 7.6 MG/DL (8.5-10.1); CARBON DIOXIDE LEVEL 27 MEQ/L (21-32); CHLORIDE LEVEL 93 MEQ/L (98-107); CREATININE FOR GFR 0.82 MG/DL (0.70-1.30); GLOMERULAR FILTRATION RATE > 60.0 (>56); GLUCOSE, FASTING 100 MG/DL (70-105); SODIUM LEVEL 129 MEQ/L (136-145); TOTAL PROTEIN 6.4 GM/DL (6.4-8.2)
[2016-11-27] MEDS: SPIRONOLACTONE 50 MG TAB PO SCH (08:33)
[2016-11-27] MEDS: rifAXIMin 550 MG TAB (XIFAXAN) PO SCH ×2 (08:33→20:22)
[2016-11-27] MEDS: THIAMINE 100 MG TAB PO SCH (08:33)
[2016-11-27] MEDS: FUROSEMIDE 40 MG/4 ML VIAL (J1940) IV SCH ×2 (08:33→17:34)
[2016-11-27] MEDS: GABAPENTIN 100 MG CAP PO SCH ×2 (08:33→20:22)
[2016-11-27] MEDS: FOLIC ACID 1 MG TAB PO SCH (08:33)
[2016-11-27 08:34] VITALS: BP 105/59
[2016-11-27 08:45] VITALS: BP 99/55
[2016-11-27 10:00] VITALS: BP 93/58
--- NOTE | 2016-11-27 10:20 | IPNPDOC ---
Subjective Date Seen The patient was seen on 11/27/16. Subjective Chief Complaint/HPI The patient is a 56-year-old male admitted with a reason for visit of Ascites Jaundice. General: Denies: Chills, Night Sweats Constitutional: Reports: Malaise, Denies: Chills, Fever Eyes: Reports: Other (scleara icteric), Denies: Vision change, Conjunctivae inflammation ENT: Denies: Head Aches Skin: Denies: Rash, Lesions, Jaundice, Bruising, Itching, Dry Pulmonary: Denies: Dyspnea, Cough Cardiovascular: Denies: Chest Pain, Palpitations, Orthopnea Gastrointestinal: Reports: Nausea, Abdominal Pain, Denies: Vomiting, Diarrhea, Constipation Genitourinary: Denies: Dysuria, Frequency Neurological: Reports: Weakness, Denies: Numbness Psych: Reports: Mood Normal Objective Physical Examination General Exam: Positive: Alert, Cooperative, No Acute Distress Eye Exam: Positive: PERRLA, Conjunctiva & lids normal, EOMI, Sclera icteric ENT Exam: Positive: Atraumatic, Mucous membr. moist/pink, Pharynx Normal Neck Exam: Positive: Supple, Negative: JVD, thyromegaly Chest Exam: Positive: Normal air movement, Rhonchi Heart Exam: Positive: Rate Normal, Regular Rhythm, Normal S1, Normal S2, Negative: Murmurs, Rubs Abdomen Exam: Positive: Normal bowel sounds, Soft, Hepatospenomegaly, Other ( ascitis) Extremity Exam: Positive: Normal pulses, Negative: Clubbing, Cyanosis, Edema Skin Exam: Positive: Other skin issue (spider angiomas on b/l LE [place] ) Assessment /Plan Problems (1) Decompensation of cirrhosis of liver Status: Acute Problem Text: With ascitis, portal hypertension, jaundice. CT ab/pelvis today to evaluate ascities showed only mild fluid, will hold on tap for now and continue to dieresis pt No SBP, no GIB, NO encephalopathy. Continue lasix and spironolactone and lactulose prn c/w rifaximin for sbp prophylaxis. Had 2800 ml fluid tapped. (2) Alcohol abuse Status: Chronic Response to Treatment: Stable Problem Text: pt states he is not drinking any more, denied wanting help from perinatal social worker to aid in rehab program on outpt f/u will re-visit this in the future w/ pt as he was explained the critical importance of alcohol cessation (3) Tobacco abuse Status: Chronic Problem Text: counselled about stopped he is going to try by himself (4) Jaundice Status: Acute Problem Text: no biliary duct obstruction Likely 2/2 to cirrhosis and ascities Hep A,B,C negative (5) Hypokalemia Status: Acute Problem Text: 4.0 today stable (6) Hyponatremia Status: Acute Problem Text: 129 today c/w fluid restriction due to cirrhosis urine osmolality low 312, urine Na normal (7) Peripheral neuropathy Status: Chronic Problem Text: due to alcohol continue pt on gabapentin pending PT evaluation today Plan/VTE VTE Prophylaxis Ordered?: Yes VS, I&O, 24H, Fishbone Vital Signs/I&O Vital Signs Date Time Temp Pulse Resp B/P (MAP) Pulse Ox O2 Delivery O2 Flow Rate FiO2 11/27/16 08:34 94 105/59 (74) 11/27/16 06:00 98.2 18 94 11/26/16 22:05 Room Air I&O- Last 24 Hours up to 6 AM 11/27/16 06:00 Intake Total 1680 ml Output Total 950 ml Balance 730 ml Laboratory Data 24H LABS Laboratory Tests 2 11/27/16 06:56: White Blood Count 21.4H, Red Blood Count 2.52L, Hemoglobin 10.3L, Hematocrit 30.5L, Mean Corpuscular Volume 121.3H, Mean Corpuscular Hemoglobin 40.8H, Mean Corpuscular Hemoglobin Concent 33.6, Red Cell Distribution Width 15.5H, Platelet Count 214, Neutrophils (%) (Auto) 88.6H, Lymphocytes (%) (Auto) 4.7L, Monocytes (%) (Auto) 3.3, Eosinophils (%) (Auto) 2.2, Basophils (%) (Auto) 0.3, Neutrophils # (Auto) 18.9H, Lymphocytes # (Auto) 1.2L, Monocytes # (Auto) 0.7, Eosinophils # (Auto) 0.5, Basophils # (Auto) 0.1, Large Unclassified Cells % 1.0 , Large Unclassified Cells # 0.2, Platelet Estimate NORMAL, Macrocytosis 3+, Anion Gap 9, Glomerular Filtration Rate > 60.0, Blood Urea Nitrogen 21H, Creatinine 0.82, Sodium Level 129L, Potassium Level 4.0, Chloride Level 93L, Carbon Dioxide Level 27, Calcium Level 7.6L, Aspartate Amino Transf (AST/SGOT) 200H, Alanine Aminotransferase (ALT/SGPT) 43, Alkaline Phosphatase 292H, Total Bilirubin 10.1H, Total Protein 6.4, Albumin 1.3L, Magnesium Level 2.0, Albumin/ Globulin Ratio 0.25L CBC/BMP Laboratory Tests 11/27/16 06:56 Red Blood Count 2.52 L, Mean Corpuscular Volume 121.3 H, Mean Corpuscular Hemoglobin 40.8 H, Mean Corpuscular Hemoglobin Concent 33.6, Red Cell Distribution Width 15.5 H, Neutrophils (%) (Auto) 88.6 H, Lymphocytes (%) (Auto ) 4.7 L, Monocytes (%) (Auto) 3.3, Eosinophils (%) (Auto) 2.2, Basophils (%) ( Auto) 0.3, Neutrophils # (Auto) 18.9 H, Lymphocytes # (Auto) 1.2 L, Monocytes # (Auto) 0.7, Eosinophils # (Auto) 0.5, Basophils # (Auto) 0.1, Calcium Level 7.6 L, Aspartate Amino Transf (AST/SGOT) 200 H, Alanine Aminotransferase (ALT/SGPT) 43, Alkaline Phosphatase 292 H, Total Bilirubin 10.1 H, Total Protein 6.4, Albumin 1.3 L Microbiology Microbiology 11/22/16 Blood Culture - Final, Complete NO GROWTH AFTER 5 DAYS 11/22/16 Blood Culture - Final, Complete NO GROWTH AFTER 5 DAYS 11/22/16 Gram Stain - Final, Complete 11/22/16 Body Fluid Culture - Final, Complete 11/23/16 Urine Culture - Final, Complete GME ATTESTATION GME ATTESTATION My preceptor for this patient encounter was physically present in the building during the encounter and was fully available. As needed, all aspects of the patient interview, examination, medical decision making process, and medical care plan development were reviewed and approved by the preceptor. Preceptor is aware and concurs with the plan as stated in the body of this note and will attest to such by his/her cosignature. KATHLEEN LAROSE DO Nov 27, 2016 10:20
[2016-11-27 10:25] VITALS: BP 99/55
[2016-11-27] MEDS: predniSONE 20 MG TAB PO SCH (17:34)
[2016-11-27] MEDS: FAMOTIDINE 20 MG TAB PO SCH (20:22)
--- NOTE | 2016-11-27 21:40 | CR ---
DATE OF CONSULTATION: 11/27/2016 Asked to consult by Dr. Lobo for evaluation of leukocytosis in a patient with alcoholic hepatitis and ascites. HISTORY OF PRESENT ILLNESS: Mr. Machuca is a pleasant 56-year-old gentleman with a history of 30-year alcohol abuse who drinks about 4 to 5 whiskies a day because he feels bored. He has not been feeling well for the past 4 to 6 months. He was feeling weaker and more tired. Over the past 3 to 4 weeks, he had noticed increasing abdominal girth, brown colored urine and bloating. He is having more hiccups. His appetite was decreased. He was burping all the time. He could only drink sips of liquids. He had fevers about 2 to 3 weeks ago for a couple weeks that had resolved associated with night sweats with no recurrence. He came to the emergency room and was noted to be jaundiced with a bilirubin of 11.9, elevated AST. He underwent paracentesis in the emergency room. 2.8 liters of fluid were removed and sent for culture that was negative. Effluent albumin was 0.7. PAST MEDICAL HISTORY: Significant for migraines, hypertension, kidney stones, hypercholesteremia with a cholesterol 313 in 2000, history of umbilical hernia repair and alcohol abuse. PAST SURGICAL HISTORY: Umbilical hernia repair done at the [facility] in [place] in February 2016. Ended up with urinary retention, had a Dumont catheter on discharge and that was removed on March 11, 2016 in our emergency room (ER). SOCIAL HISTORY: He drinks alcohol regularly, 4 to 5 whiskies a day. He smokes a pack of cigarettes a day. He does not use drugs. He is . 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 He also volunteered at [employer]. ALLERGIES: PENICILLIN. MEDICATIONS: None at home. Currently is gabapentin 100 mg by mouth twice a day , famotidine 40 mg by mouth at bedtime (q.h.s.), Lasix 40 mg IV every 12 hours, albuterol nebulizers, rifaximin 550 mg by mouth twice a day, lactulose as needed , Serax 10 mg every 8 hours as needed, Zofran 4 mg IV every 6 as needed, Aldactone 50 mg by mouth daily, folic acid 1 mg by mouth daily and thiamine 100 mg by mouth daily. LABORATORY DATA: White count was 15.4 on admission, creatinine 21.4, hemoglobin 10.3, hematocrit 30.5, platelets 214. Sodium 129, potassium 4, chloride 93, bicarbonate 27, BUN 21, creatinine 0.8, glucose 100, calcium 7.6, magnesium 2, bilirubin 10.1, AST 200 with a peak of 249, ALT 43, alkaline phosphatase 292, LDH 336, C-reactive protein (CRP) 13.2, total protein 6.4, albumin 1.3. Tumor Alpha-fetoprotein 5.5. Blood cultures two sets were no growth after 5 days. Ascites was negative. Urine culture was negative. Hepatitis A, B and C were negative. IMAGING STUDY: CT abdomen: Borderline liver size with mild splenomegaly, diffuse abdominal ascites with 4 mm intrarenal calculus in the left kidney upper pole. Left colonic diverticulosis. Paracentesis done by Froilan Neff and Dr. Bal. Yellowish-greenish fluid was drained, 2.8 liters. Gallbladder ultrasound showed sludge and mild wall thickening with chronic ascites, fatty liver and scrotal ultrasound showed unremarkable findings. PHYSICAL EXAMINATION: Temperature is 97.9, pulse 95, respirations 16, blood pressure 99/55, oxygen saturation 98% on room air, T-max 3 days ago was 100.4. HEART: Normal S1-S2. No murmurs. Lungs are clear. No wheezes or rhonchi. ABDOMEN: Ascites with tenderness in the right upper quadrant with mild hepatomegaly. EXTREMITIES: Trace ankle edema bilaterally. Oropharynx is clear with no thrush with thrush. Neck is supple. No jugular venous distension (JVD). No bruits. Pupils equal and reactive, anicteric sclerae. IMPRESSION: This is a 56-year-old gentleman who has a history of alcoholism is admitted with alcoholic hepatitis with hyperbilirubinemia and ascites. The patient had elevated white count, but does not have any sign of infection. Alpha-fetoprotein is 5.5, amylase and lipase are normal. I do not see any evidence of infection to explain his elevated white count other than alcoholic hepatitis and inflammation of the liver. PLAN Suggest starting prednisone 40 mg by mouth daily. Continue current management of ascites. Case has been discussed with Dr. Diaz who agrees and Dr. Lobo. If a repeat paracentesis is done, I would suggest sending fluid for cytology, acid-fast bacillus (AFB) smear and culture and fungal smear and culture. Previous fluid analysis had only 60 white cells with 24% neutrophils, 62% lymphocytes, which is not suggestive of infection. MTDD
[2016-11-27 22:00] VITALS: BP 109/64
[2016-11-28 06:00] VITALS: BP 110/74
[2016-11-28 06:28] LABS: ADD MANUAL DIFFER YES; MEAN CORPUSCULAR HGB CONC 33.2 g/dl (32.0-36.5); MEAN CORPUSCULAR VOLUME 120.4 fl (80.0-96.0); PLATELET COUNT, AUTOMATED 232 k/mm3 (150-450); RED CELL DISTRIBUTION WIDTH 15.4 % (11.5-14.5); WHITE BLOOD COUNT 20.8 K/mm3 (4.0-10.0)
[2016-11-28 06:40] LABS: ALBUMIN 1.3 GM/DL (3.2-5.2); ALBUMIN/GLOBULIN RATIO 0.24 (1.00-1.93); ALKALINE PHOSPHATASE 291 U/L (45-117); ALT/SGPT 45 U/L (12-78); ANION GAP 7 MEQ/L (8-16); AST/SGOT 192 U/L (15-37); BILIRUBIN,TOTAL 9.4 MG/DL (0.2-1.0); BLOOD UREA NITROGEN 21 MG/DL (7-18); CALCIUM LEVEL 8.1 MG/DL (8.5-10.1); CARBON DIOXIDE LEVEL 28 MEQ/L (21-32); CHLORIDE LEVEL 93 MEQ/L (98-107); CREATININE FOR GFR 0.86 MG/DL (0.70-1.30); GLOMERULAR FILTRATION RATE > 60.0 (>56); GLUCOSE, FASTING 121 MG/DL (70-105); MAGNESIUM LEVEL 2.1 MG/DL (1.8-2.4); SODIUM LEVEL 128 MEQ/L (136-145); TOTAL PROTEIN 6.7 GM/DL (6.4-8.2)
[2016-11-28 06:59] LABS: ANISOCYTOSIS 1+
[2016-11-28 08:00] VITALS: BP 95/55
[2016-11-28] MEDS: SPIRONOLACTONE 25 MG TAB PO SCH (09:00)
[2016-11-28] MEDS: SPIRONOLACTONE 50 MG TAB PO SCH (09:00)
[2016-11-28] MEDS: FUROSEMIDE 40 MG/4 ML VIAL (J1940) IV SCH ×2 (09:00→17:48)
--- NOTE | 2016-11-28 09:04 | IPNPDOC ---
Subjective Date Seen The patient was seen on 11/28/16. Subjective Chief Complaint/HPI The patient is a 56-year-old male admitted with a reason for visit of Ascites Jaundice. General: Denies: Chills, Night Sweats Constitutional: Denies: Chills, Fever, Malaise Eyes: Denies: Vision change Skin: Denies: Lesions, Jaundice Pulmonary: Denies: Dyspnea, Cough Cardiovascular: Denies: Chest Pain, Palpitations Gastrointestinal: Reports: Nausea, Abdominal Pain, Denies: Vomiting, Diarrhea, Constipation Neurological: Denies: Weakness Objective Physical Examination General Exam: Positive: Alert, Cooperative, No Acute Distress Eye Exam: Positive: PERRLA, Conjunctiva & lids normal, EOMI, Sclera icteric ENT Exam: Positive: Atraumatic, Mucous membr. moist/pink, Pharynx Normal Neck Exam: Positive: Supple, Negative: JVD, thyromegaly Chest Exam: Positive: Normal air movement, Rhonchi Heart Exam: Positive: Rate Normal, Regular Rhythm, Normal S1, Normal S2, Negative: Murmurs, Rubs Abdomen Exam: Positive: Normal bowel sounds, Soft, Hepatospenomegaly, Other ( ascitis, unchanged from one day prior) Extremity Exam: Positive: Normal pulses, Negative: Clubbing, Cyanosis, Edema Skin Exam: Positive: Other skin issue (spider angiomas on b/l LE [place] ) Assessment /Plan Problems (1) Decompensation of cirrhosis of liver Status: Acute Problem Text: With ascitis, portal hypertension, jaundice. CT ab/pelvis one day ago to evaluate ascities showed only mild fluid, will hold on tap for now and continue to dieresis pt No SBP, no GIB, NO encephalopathy. Continue lasix and spironolactone and lactulose prn c/w rifaximin for sbp prophylaxis. Had 2800 ml fluid tapped. (2) Alcohol abuse Status: Chronic Response to Treatment: Stable Problem Text: pt states he is not drinking any more, denied wanting help from manager social work to aid in rehab program on outpt f/u will re-visit this in the future w/ pt as he was explained the critical importance of alcohol cessation (3) Leukocytopenia Status: Acute Response to Treatment: Stable Problem Text: has been steadily climbing 20.8 from 21.4 urine, blood and fluid from tap negative for infection ID consulted-appreciate their help- suggested 2/2 inflammation, have begun prednisone 40 QD will continue to monitor (4) Tobacco abuse Status: Chronic Problem Text: counselled about stopped he is going to try by himself (5) Jaundice Status: Acute Problem Text: no biliary duct obstruction Likely 2/2 to cirrhosis and ascities Hep A,B,C negative (6) Hypokalemia Status: Acute Problem Text: again 4.0 today stable (7) Hyponatremia Status: Acute Problem Text: 128 today c/w fluid restriction due to cirrhosis urine osmolality low 312, urine Na normal (8) Peripheral neuropathy Status: Chronic Problem Text: due to alcohol continue pt on gabapentin pending PT one day ago, did not think it was safe for him to return home, will re-evaluate Plan/VTE VTE Prophylaxis Ordered?: Yes VS, I&O, 24H, [facility] Vital Signs/I&O Vital Signs Date Time Temp Pulse Resp B/P (MAP) Pulse Ox O2 Delivery O2 Flow Rate FiO2 11/28/16 06:00 98.0 72 16 110/74 (86) 92 Room Air I&O- Last 24 Hours up to 6 AM 11/28/16 06:00 Intake Total 1320 ml Output Total 1350 ml Balance -30 ml Laboratory Data 24H LABS Laboratory Tests 2 11/27/16 15:15: C-Reactive Protein, Quantitative 13.20H, Tumor Marker Alpha Fetoprotein 5.5 11/28/16 06:00: Neutrophils 90H, Lymphocytes (Manual) 7L, Monocytes (Manual) 3, Platelet Estimate NORMAL, Anisocytosis 1+, Macrocytosis 3+, Anion Gap 7L, Glomerular Filtration Rate > 60.0, Blood Urea Nitrogen 21H, Creatinine 0.86, Sodium Level 128L, Potassium Level 4.0, Chloride Level 93L, Carbon Dioxide Level 28, Calcium Level 8.1L, Aspartate Amino Transf (AST/SGOT) 192H, Alanine Aminotransferase ( ALT/SGPT) 45, Alkaline Phosphatase 291H, Total Bilirubin 9.4H, Total Protein 6.7 , Albumin 1.3L, Magnesium Level 2.1, Albumin/Globulin Ratio 0.24L CBC/BMP Laboratory Tests 11/28/16 06:00 Red Blood Count 2.60 L, Mean Corpuscular Volume 120.4 H, Mean Corpuscular Hemoglobin 40.0 H, Mean Corpuscular Hemoglobin Concent 33.2, Red Cell Distribution Width 15.4 H, Calcium Level 8.1 L, Aspartate Amino Transf (AST/SGOT ) 192 H, Alanine Aminotransferase (ALT/SGPT) 45, Alkaline Phosphatase 291 H, Total Bilirubin 9.4 H, Total Protein 6.7, Albumin 1.3 L Microbiology Microbiology 11/22/16 Blood Culture - Final, Complete NO GROWTH AFTER 5 DAYS 11/22/16 Blood Culture - Final, Complete NO GROWTH AFTER 5 DAYS 11/22/16 Gram Stain - Final, Complete 11/22/16 Body Fluid Culture - Final, Complete 11/23/16 Urine Culture - Final, Complete GME ATTESTATION GME ATTESTATION My preceptor for this patient encounter was physically present in the building during the encounter and was fully available. As needed, all aspects of the patient interview, examination, medical decision making process, and medical care plan development were reviewed and approved by the preceptor. Preceptor is aware and concurs with the plan as stated in the body of this note and will attest to such by his/her cosignature. KATHLEEN LAROSE DO Nov 28, 2016 09:04
[2016-11-28] MEDS: rifAXIMin 550 MG TAB (XIFAXAN) PO SCH ×2 (09:07→20:26)
[2016-11-28] MEDS: GABAPENTIN 100 MG CAP PO SCH ×2 (09:07→20:26)
[2016-11-28] MEDS: predniSONE 20 MG TAB PO SCH (09:07)
[2016-11-28] MEDS: FOLIC ACID 1 MG TAB PO SCH (09:08)
[2016-11-28] MEDS: THIAMINE 100 MG TAB PO SCH (09:08)
[2016-11-28 09:15] VITALS: BP 95/55
[2016-11-28 13:32] VITALS: BP 102/59
[2016-11-28] MEDS: FAMOTIDINE 20 MG TAB PO SCH (20:26)
[2016-11-28 22:00] VITALS: BP 126/62
[2016-11-29 06:00] VITALS: BP 102/56
[2016-11-29 07:19] LABS: BASO # 0.1 K/mm3 (0.0-0.2); BASO % 0.7 % (0.0-1.0); EOS # 0.3 K/mm3 (0.0-0.50); EOS % 1.4 % (0.0-3.0); LARGE UNSTAINED CELL # 0.3 K/mm3 (0.0-0.4); LARGE UNSTAINED CELL % 1.4 % (0.0-4.0); LYMPH % 5.8 % (24.0-44.0); MEAN CORPUSCULAR HEMOGLOBIN 38.2 pg (27.0-33.0); MEAN CORPUSCULAR HGB CONC 32.8 g/dl (32.0-36.5); MEAN CORPUSCULAR VOLUME 116.4 fl (80.0-96.0); MONO # 0.6 K/mm3 (0.0-0.8); MONO % 3.2 % (0.0-5.0); NEUTROPHILS # 15.7 K/mm3 (1.8-7.7); NEUTROPHILS % 87.5 % (36.0-66.0); PLATELET COUNT, AUTOMATED 256 k/mm3 (150-450); RED CELL DISTRIBUTION WIDTH 14.9 % (11.5-14.5); WHITE BLOOD COUNT 17.9 K/mm3 (4.0-10.0)
[2016-11-29 07:37] LABS: ALBUMIN 1.3 GM/DL (3.2-5.2); ALBUMIN/GLOBULIN RATIO 0.24 (1.00-1.93); ALKALINE PHOSPHATASE 278 U/L (45-117); ALT/SGPT 47 U/L (12-78); ANION GAP 9 MEQ/L (8-16); AST/SGOT 187 U/L (15-37); BILIRUBIN,TOTAL 8.2 MG/DL (0.2-1.0); BLOOD UREA NITROGEN 21 MG/DL (7-18); CALCIUM LEVEL 7.7 MG/DL (8.5-10.1); CARBON DIOXIDE LEVEL 27 MEQ/L (21-32); CHLORIDE LEVEL 96 MEQ/L (98-107); CREATININE FOR GFR 0.69 MG/DL (0.70-1.30); GLOMERULAR FILTRATION RATE > 60.0 (>56); GLUCOSE, FASTING 89 MG/DL (70-105); MAGNESIUM LEVEL 2.2 MG/DL (1.8-2.4); POTASSIUM SERUM 3.5 MEQ/L (3.5-5.1); SODIUM LEVEL 132 MEQ/L (136-145); TOTAL PROTEIN 6.8 GM/DL (6.4-8.2)
[2016-11-29] MEDS: THIAMINE 100 MG TAB PO SCH (07:58)
[2016-11-29] MEDS: predniSONE 20 MG TAB PO SCH (07:58)
[2016-11-29] MEDS: GABAPENTIN 100 MG CAP PO SCH ×2 (07:58→20:59)
[2016-11-29] MEDS: rifAXIMin 550 MG TAB (XIFAXAN) PO SCH ×2 (07:58→20:59)
[2016-11-29] MEDS: FOLIC ACID 1 MG TAB PO SCH (07:58)
[2016-11-29] MEDS: SPIRONOLACTONE 25 MG TAB PO SCH (07:59)
[2016-11-29] MEDS: FUROSEMIDE 40 MG/4 ML VIAL (J1940) IV SCH ×2 (08:00→16:18)
--- NOTE | 2016-11-29 08:40 | IPNPDOC ---
Subjective Date Seen The patient was seen on 11/29/16. Subjective Chief Complaint/HPI The patient is a 56-year-old male admitted with a reason for visit of Ascites Jaundice. General: Denies: Chills, Night Sweats Eyes: Denies: Vision change, Conjunctivae inflammation ENT: Denies: Head Aches Pulmonary: Denies: Dyspnea, Cough Cardiovascular: Denies: Chest Pain, Palpitations Gastrointestinal: Reports: Abdominal Pain, Denies: Nausea, Vomiting Genitourinary: Denies: Dysuria Neurological: Denies: Weakness, Numbness Psych: Reports: Mood Normal Objective Physical Examination General Exam: Positive: Alert, Cooperative, No Acute Distress Eye Exam: Positive: PERRLA, Conjunctiva & lids normal, EOMI, Sclera icteric ENT Exam: Positive: Atraumatic, Mucous membr. moist/pink, Pharynx Normal Neck Exam: Positive: Supple, Negative: JVD, thyromegaly Chest Exam: Positive: Normal air movement, Rhonchi Heart Exam: Positive: Rate Normal, Regular Rhythm, Normal S1, Normal S2, Negative: Murmurs, Rubs Abdomen Exam: Positive: Normal bowel sounds, Soft, Tenderness (generalized), Hepatospenomegaly, Other (ascitis, unchanged from one day prior) Extremity Exam: Positive: Normal pulses, Negative: Clubbing, Cyanosis, Edema Skin Exam: Positive: Other skin issue (spider angiomas on b/l LE [place] ) Assessment /Plan Problems (1) Alcoholic hepatitis Status: Acute Problem Text: Madry score about 30 however had increasing leucocytosis with so source of infection thought to be due to inflammation so started on prednisone. improving. (2) Decompensation of cirrhosis of liver Status: Acute Problem Text: With ascitis, portal hypertension, jaundice. CT ab/pelvis done to evaluate ascities showed mild fluid, however pt complains of abdominal pain on exam today will schedule for peritoneal tap tomorrow No SBP, no GIB, NO encephalopathy. Continue lasix and spironolactone and lactulose prn c/w rifaximin for sbp prophylaxis. Had 2800 ml fluid tapped previously (3) Leucocytosis Status: Acute Problem Text: due to alcoholic hepatitis urine, blood and fluid from tap negative for infection ID consulted-appreciate their help- suggested 2/2 inflammation, continue prednisone 40 QD 17.9 from 20.8, pt was started on prednisone one day ago will continue to monitor (4) Alcohol abuse Status: Chronic Response to Treatment: Stable Problem Text: pt states he is not drinking any more, again denied wanting help from social sciences department chair to aid in rehab program on outpt f/u will re-visit this in the future w/ pt as he was explained the critical importance of alcohol cessation (5) Tobacco abuse Status: Chronic Problem Text: counselled about stopped he is going to try by himself (6) Jaundice Status: Acute Problem Text: no biliary duct obstruction Likely 2/2 to cirrhosis and ascities and alcoholic hepatitis. Hep A,B,C negative (7) Hypokalemia Status: Resolved Problem Text: again 3.5 today stable (8) Hyponatremia Status: Acute Problem Text: improved to 132 from 128 one day prior c/w fluid restriction due to cirrhosis urine osmolality low 312, urine Na normal (9) Peripheral neuropathy Status: Chronic Problem Text: due to alcohol continue pt on gabapentin pending PT one day ago, did not think it was safe for him to return home, will have PT re-evaluate Plan/VTE VTE Prophylaxis Ordered?: Yes VS, I&O, 24H, Fishbone Vital Signs/I&O Vital Signs Date Time Temp Pulse Resp B/P (MAP) Pulse Ox O2 Delivery O2 Flow Rate FiO2 11/29/16 06:00 97.7 69 19 102/56 (71) 93 Room Air I&O- Last 24 Hours up to 6 AM 11/29/16 05:59 Intake Total 1040 ml Output Total 900 ml Balance 140 ml Laboratory Data 24H LABS Laboratory Tests 2 11/29/16 06:53: White Blood Count 17.9H, Red Blood Count 2.69L, Hemoglobin 10.3L, Hematocrit 31.4L, Mean Corpuscular Volume 116.4H, Mean Corpuscular Hemoglobin 38.2H, Mean Corpuscular Hemoglobin Concent 32.8, Red Cell Distribution Width 14.9H, Platelet Count 256, Neutrophils (%) (Auto) 87.5H, Lymphocytes (%) (Auto) 5.8L, Monocytes (%) (Auto) 3.2, Eosinophils (%) (Auto) 1.4, Basophils (%) (Auto) 0.7, Neutrophils # (Auto) 15.7H, Lymphocytes # (Auto) 1.0L, Monocytes # (Auto) 0.6, Eosinophils # (Auto) 0.3, Basophils # (Auto) 0.1, Large Unclassified Cells % 1.4 , Large Unclassified Cells # 0.3, Anion Gap 9, Glomerular Filtration Rate > 60.0 , Blood Urea Nitrogen 21H, Creatinine 0.69L, Sodium Level 132L, Potassium Level 3.5, Chloride Level 96L, Carbon Dioxide Level 27, Calcium Level 7.7L, Aspartate Amino Transf (AST/SGOT) 187H, Alanine Aminotransferase (ALT/SGPT) 47, Alkaline Phosphatase 278H, Total Bilirubin 8.2H, Total Protein 6.8, Albumin 1.3L, Magnesium Level 2.2, Albumin/Globulin Ratio 0.24L CBC/BMP Laboratory Tests 11/29/16 06:53 Red Blood Count 2.69 L, Mean Corpuscular Volume 116.4 H, Mean Corpuscular Hemoglobin 38.2 H, Mean Corpuscular Hemoglobin Concent 32.8, Red Cell Distribution Width 14.9 H, Neutrophils (%) (Auto) 87.5 H, Lymphocytes (%) (Auto ) 5.8 L, Monocytes (%) (Auto) 3.2, Eosinophils (%) (Auto) 1.4, Basophils (%) ( Auto) 0.7, Neutrophils # (Auto) 15.7 H, Lymphocytes # (Auto) 1.0 L, Monocytes # (Auto) 0.6, Eosinophils # (Auto) 0.3, Basophils # (Auto) 0.1, Calcium Level 7.7 L, Aspartate Amino Transf (AST/SGOT) 187 H, Alanine Aminotransferase (ALT/SGPT) 47, Alkaline Phosphatase 278 H, Total Bilirubin 8.2 H, Total Protein 6.8, Albumin 1.3 L Microbiology Microbiology 11/22/16 Blood Culture - Final, Complete NO GROWTH AFTER 5 DAYS 11/22/16 Blood Culture - Final, Complete NO GROWTH AFTER 5 DAYS 11/22/16 Gram Stain - Final, Complete 11/22/16 Body Fluid Culture - Final, Complete 11/23/16 Urine Culture - Final, Complete GME ATTESTATION GME ATTESTATION My preceptor for this patient encounter was physically present in the building during the encounter and was fully available. As needed, all aspects of the patient interview, examination, medical decision making process, and medical care plan development were reviewed and approved by the preceptor. Preceptor is aware and concurs with the plan as stated in the body of this note and will attest to such by his/her cosignature. KATHLEEN LAROSE DO Nov 29, 2016 08:40 DARRYL GOODMAN MD Nov 30, 2016 06:14
[2016-11-29 14:00] VITALS: BP 116/73
[2016-11-29] MEDS: FAMOTIDINE 20 MG TAB PO SCH (20:59)
[2016-11-29 22:00] VITALS: BP 105/59
[2016-11-30 06:00] VITALS: BP 116/72
[2016-11-30] MEDS: GABAPENTIN 100 MG CAP PO SCH (09:04)
[2016-11-30] MEDS: predniSONE 20 MG TAB PO SCH (09:04)
[2016-11-30] MEDS: THIAMINE 100 MG TAB PO SCH (09:04)
[2016-11-30] MEDS: FOLIC ACID 1 MG TAB PO SCH (09:04)
[2016-11-30] MEDS: SPIRONOLACTONE 25 MG TAB PO SCH (09:04)
[2016-11-30] MEDS: rifAXIMin 550 MG TAB (XIFAXAN) PO SCH (09:04)
[2016-11-30 09:05] VITALS: BP 105/62
[2016-11-30] MEDS: FUROSEMIDE 40 MG/4 ML VIAL (J1940) IV SCH (09:15)
--- NOTE | 2016-11-30 10:49 | DS.PDOC ---
Discharge Summary General Date of Admission Nov 22, 2016 at 12:21 Date of Discharge 11-30-16 Discharge Summary PROCEDURES PERFORMED DURING STAY: Peritoneal Tap x2 ADMITTING DIAGNOSES: 1. Decompensated alcohol cirrhosis 2. Hypokalemia 3. Alcohol Abuse DISCHARGE DIAGNOSES: 1.Decompensated alcoholic cirrhosis 2. Alcohol abuse 3. Alcoholic hepatitis 4. peripheral Neuropathy 5. Ascites, Jaundice 6. Tobacco Abuse COMPLICATIONS/CHIEF COMPLAINT: Ascites Jaundice. HISTORY OF PRESENT ILLNESS: 56 y/o male with past medical history of alcohol abuse presented with CC of increasing abdominal discomfort and swelling for the prior three weeks associated with brown colored urine & inability to eat. HOSPITAL COURSE: During the course of the hospital stay, the pt. received two peritoneal taps. The first which was unremarkable for infection, however his WBC continued to steadily increase despite negative sources for infection including blood, urine and peritoneal fluid.Upon presentation to ED he did have an elevated lactic to 3.3 and low K, which was replaced. Repeat lactic was normal. Infectious disease was asked to see the pt. and recommended initiation of steroids as it was not their thought that the white count was due to an infection but rather generalized inflammation. After steroid treatment was initiated, the white count did steadily trend down. THe pt. during the course of his stay continued to complain of diffuse and achy abdominal pain. On day of d/c he received his second peritoneal tap. He received aldactone and furosemide inpt, along with Rifaximin and serax to control w/d symptoms. The pts Hep B & C were negative. Of note, pt has refused to see psychiatry or accept help for alcohol counseling while inpt despite numerous attempts. Patient received 5 days of steroids but was discharged on pentoxifylline as it was unsure whether the pateint is going to keep his follow up appointments or not . Patient was discharged on rifaximin however his peritoneal fluid did not show any signs of SBP and also his insurance did not cover it. DISCHARGE MEDICATIONS: Please see below. ALLERGIES: Please see below. PHYSICAL EXAMINATION ON DISCHARGE: VITAL SIGNS: Please see below. GENERAL: NAD, laying in bed, some discomfort from generalized ongoing abdominal achyness HEENT:EOMI, PERRLA, nares patent b/l moist mucus membranes, tongue midline NECK: supple, trachea midline CARDIOVASCULAR EXAMINATION: no murmurs, rubs or gallops appreciated. normal s1, s2. RESPIRATORY EXAMINATION: no wheezing, rales or rhonchi appreciated ABDOMINAL EXAMINATION: protruberent, hepatomegaly, splenomegaly, nabsx4, no rebound ridgity or guarding appreciated, diffusley tender throughout. EXTREMITIES: jaundiced, no edema, clubbing or cyanosis appreciated SKIN: intact, jaundiced throughout NEUROLOGICAL EXAMINATION: no focal deficits PSYCHIATRIC EXAMINATION: normal affect, appropriate demeanor LABORATORY DATA: Please see below. IMAGIN11-22-16 scrotal u/s IMPRESSION: Unremarkable scrotal sonography. No significant abnormality noted. Gallbladder u/s 11-22-16 Impression: 1. Gallbladder with presumed tumefactive sludge and mild wall thickening which may be secondary to chronic ascites. No biliary ductal dilatation. 2. Fatty infiltration to the liver. 3. Moderate ascites Abdominal x-ray 11-22-16 Impression: Nonspecific bowel gas pattern. Paracentesis 11-22-16 The largest pocket of fluid was localized in the left flank using ultrasound guidance. The skin was prepped and draped in a sterile fashion. 1% Lidocaine was used as a local anesthetic. An 8-[place] tbidg-vryy-umab catheter was inserted using trocar technique. 2850 mL of yellow-green fluid was withdrawn with a sample sent to the lab for analysis. The patient tolerated the procedure well and there were no immediate complications. CT/Ab pelvis w/o contrast 11-26-16 Impression: Borderline liver size. Mild splenomegaly. Mild diffuse abdominal ascites. 3-4 mm intrarenal calculus left kidney upper pole. Left colonic diverticulosis. PROGNOSIS: stable ACTIVITY: As tolerated DIET: as tolerated DISCHARGE PLAN: home DISPOSITION: Stable DISCHARGE INSTRUCTIONS: 1. Stable to home ITEMS TO FOLLOWUP ON ON OUTPATIENT: 1. Follow with PCP within one week of d/c DISCHARGE CONDITION: Stable TIME SPENT ON DISCHARGE: Greater than 20 minutes. Vital Signs/I&Os Vital Signs Date Time Temp Pulse Resp B/P (MAP) Pulse Ox O2 Delivery O2 Flow Rate FiO2 11/30/16 09:05 79 16 105/62 (76) Room Air 11/30/16 06:00 98.2 94 I&O- Last 24 Hours up to 6 AM 11/30/16 06:00 Intake Total 1400 ml Output Total 1625 ml Balance -225 ml Microbiology Microbiology 11/22/16 Blood Culture - Final, Complete NO GROWTH AFTER 5 DAYS 11/22/16 Blood Culture - Final, Complete NO GROWTH AFTER 5 DAYS 11/22/16 Gram Stain - Final, Complete 11/22/16 Body Fluid Culture - Final, Complete 11/23/16 Urine Culture - Final, Complete Discharge Medications Scheduled Famotidine (Famotidine) 40 Mg Tab, 40 MG PO QHS, (Reported) Folic Acid (Folic Acid) 1 Mg Tab, 1 MG PO DAILY, (Reported) Furosemide (Furosemide) 40 Mg Tab, 40 MG PO BID, (Reported) Gabapentin (Gabapentin) 100 Mg Cap, 100 MG PO BID, (Reported) Lactulose (Lactulose) 10 Gm/15 Ml Shobha, 15 ML PO BID, (Reported) Prednisone (Prednisone) 20 Mg Tab, 20 MG PO DAILY, (Reported) TO END 12/24/16 Rifaximin (Xifaxan) 550 Mg Tab, 550 MG PO BID, (Reported) NEW MED 11/30/16 BY PCP HASNT GOT FROM PHARMACY YET Spironolactone (Spironolactone) 100 Mg Tab, 100 MG PO DAILY, (Reported) Thiamine HCl (Thiamine HCl) 100 Mg Tab, 100 MG PO DAILY, (Reported) Allergies Coded Allergies: Penicillins (Verified Allergy, Unknown, 12/06/16) PT HAS HAD ROCEPHIN IN THE PAST WITHOUT ANY DOCUMENTED REACTION GME ATTESTATION GME ATTESTATION My preceptor for this patient encounter was physically present in the building during the encounter and was fully available. As needed, all aspects of the patient interview, examination, medical decision making process, and medical care plan development were reviewed and approved by the preceptor. Preceptor is aware and concurs with the plan as stated in the body of this note and will attest to such by his/her cosignature. KATHLEEN LAROSE DO Nov 30, 2016 10:49 DARRYL GOODMAN MD Dec 17, 2016 11:01
[2016-11-30] MEDS ORDERED: FAMO20TA PO (11:49)
[2016-11-30] MEDS ORDERED: SPIR100T PO (11:49)
[2016-11-30] MEDS ORDERED: XIFA550T PO (11:49)
[2016-11-30] MEDS ORDERED: THIA100TA PO (11:49)
[2016-11-30] MEDS ORDERED: FOLI1TAB4 PO (11:49)
[2016-11-30] MEDS ORDERED: GABA-279 PO (11:49)
[2016-11-30] MEDS ORDERED: LASI40TA PO (11:49)
[2016-11-30] MEDS ORDERED: LACT10SO3 PO (11:53)
[2016-11-30] MEDS ORDERED: PENT400T19 PO (11:55)
--- NOTE | 2016-11-30 20:45 | REP ---
ULTRASOUND GUIDED PARACENTESIS: The procedure was performed under the direct supervision of Dr. Clark. The risks and benefits of the procedure were explained to the patient and informed consent was obtained. The largest pocket of fluid was localized in the left lower quadrant using ultrasound guidance. The skin was prepped and draped in a sterile fashion. 1% Lidocaine was used as a local anesthetic. An 8-[place] mrezv-dyyv-zywg catheter was inserted using trocar technique. 1750 mL of green colored fluid was withdrawn and discarded. The patient tolerated the procedure well and there were no immediate complications. Reviewed by ALFREDO English 12/03/2016 04:37 PEdited and Signed by Sameer Clark MD 12/03/2016 04:42 P
[2017-01-07] MEDS ORDERED: TRAM50TA2 PO (16:34)
[2017-01-25] MEDS ORDERED: ZANTTAB PO (15:38)
[2017-02-26] MEDS ORDERED: RANI150T PO (16:56)
[2017-02-26] MEDS ORDERED: FAMO40TA3 PO (16:56)
[2017-02-26] MEDS ORDERED: [UNRECOGNIZED DRUG - CODE] PO (16:56)
[2017-02-26] MEDS ORDERED: FOLI1TAB4 PO (16:56)
[2017-02-26] MEDS ORDERED: FURO40TA2 PO (16:56)
[2017-02-26] MEDS ORDERED: THIA100TA PO (16:56)
[2017-02-26] MEDS ORDERED: GABA-279 PO (16:56)
== END 2016-11-30 14:06 | disposition home or self-care (01) | DRG 264 ==
LOC: EDBD 05:55 → EDSEX 05:55 → M ED 05:55 → M ED INP 12:21 → M MSPAV 15:09
PROVIDERS: ADMIT Internal Medicine Nephrology; ATTEND Internal Medicine Nephrology
PROC: 0W9G3ZX Drainage of Peritoneal Cavity, Percutaneous Approach, Diagnostic (ICD-10-PCS; principal; 2016-11-22)
PROC: 0W9G3ZZ Drainage of Peritoneal Cavity, Percutaneous Approach (ICD-10-PCS; 2016-11-30)
DX: K70.31 Alcoholic cirrhosis of liver with ascites (principal); K76.6 Portal hypertension; K70.11 Alcoholic hepatitis with ascites; E87.1 Hypo-osmolality and hyponatremia; G62.9 Polyneuropathy, unspecified; E87.6 Hypokalemia; I10 Essential (primary) hypertension; F17.210 Nicotine dependence, cigarettes, uncomplicated; I78.1 Nevus, non-neoplastic; F10.20 Alcohol dependence, uncomplicated; Z87.442 Personal history of urinary calculi; Z88.0 Allergy status to penicillin

== ENCOUNTER 2016-12-06 11:39 | Inpatient (IN) | payer OTHER, SELFPAY ==
[~2016-12-06] VITALS: Ht 165.1 cm; Wt 73.4 kg
[~2016-12-06 11:39] MED LIST changes: +FAMO20TA PO; +FOLI1TAB4 PO; +GABA-279 PO; +LACT10SO3 PO; +LASI40TA PO; +PENT400T19 PO; +SPIR100T PO; +THIA100TA PO; +XIFA550T PO
[2016-12-06 13:07] LABS: INR 1.37
[2016-12-06 13:19] LABS: ADD MANUAL DIFFER YES; MEAN CORPUSCULAR HEMOGLOBIN 38.8 pg (27.0-33.0); MEAN CORPUSCULAR HGB CONC 34.1 g/dl (32.0-36.5); MEAN CORPUSCULAR VOLUME 113.7 fl (80.0-96.0); PLATELET COUNT, AUTOMATED 191 k/mm3 (150-450); RED CELL DISTRIBUTION WIDTH 14.7 % (11.5-14.5); WHITE BLOOD COUNT 24.7 K/mm3 (4.0-10.0)
[2016-12-06 13:23] LABS: BANDS 11 % (< 11); EOSINOPHILS 1 % (0-5)
[2016-12-06 13:42] LABS: ALBUMIN 1.6 GM/DL (3.2-5.2); ALKALINE PHOSPHATASE 380 U/L (45-117); ALT/SGPT 81 U/L (12-78); ANION GAP 10 MEQ/L (8-16); AST/SGOT 196 U/L (15-37); BILIRUBIN,DIRECT 6.6 MG/DL (0.0-0.2); BILIRUBIN,TOTAL 8.2 MG/DL (0.2-1.0); BLOOD UREA NITROGEN 19 MG/DL (7-18); CALCIUM LEVEL 7.6 MG/DL (8.5-10.1); CARBON DIOXIDE LEVEL 26 MEQ/L (21-32); CHLORIDE LEVEL 95 MEQ/L (98-107); CREATININE FOR GFR 0.89 MG/DL (0.70-1.30); GLOMERULAR FILTRATION RATE > 60.0 (>56); GLUCOSE, FASTING 106 MG/DL (70-105); POTASSIUM SERUM 3.7 MEQ/L (3.5-5.1); SODIUM LEVEL 131 MEQ/L (136-145); TOTAL PROTEIN 6.9 GM/DL (6.4-8.2)
[2016-12-06] MEDS ORDERED: GASTROGRAFIN SOLUTION 30ML (Q9963) PO ONE ×2 (15:00→15:30)
[2016-12-06] MEDS ORDERED: ISOVUE-370 76% 100ML VIAL (Q9967) As Ordered ONE (16:28)
--- NOTE | 2016-12-06 17:21 | REP ---
CT abdomen and pelvis with IV and oral contrast: History: Known cirrhosis. Now with leukocytosis and bandemia. Comparison CT study is from 11/26/2016. CT contrast dose: 100 mL of Isovue [address] findings: There is no evidence of pleural effusion or lung base infiltrate. The liver and spleen remain homogeneous in texture unchanged in size mildly prominent spleen measuring 13 cm. There is mild to moderate diffuse abdominal ascites in the upper abdomen and pelvis. The gallbladder and pancreas are unremarkable. No adrenal lesion is seen. A 4 mm intrarenal calculus is again seen in the upper pole of the left kidney unchanged. No hydronephrosis is seen. No renal cyst or mass is observed. Normal caliber aorta is seen. Incidental note is made of a common origin from the aorta of superior mesenteric artery and the celiac artery. Also known as celico-mesenteric, although it is uncommon. The inferior mesenteric artery is patent and unremarkable. Small and large intestinal bowel loops are unremarkable in the abdomen and pelvis. There is some left colonic diverticulosis without CT evidence of diverticulitis. Prostate seminal vesicles and urinary bladder are unremarkable. No abdominal wall defect is seen. No bony destructive lesion is appreciated. A normal appendix is seen. Impression: Findings similar prior study with mild to moderate diffuse abdominal ascites, mild splenomegaly, intrarenal calculus upper pole left kidney 4 mm in diameter, and left colonic diverticulosis. Incidental note is made of an anatomic variant of the upper abdominal aorta known as celico-mesenteric trunk. This is a normal arterial anatomic variant. Signed by Chacorta Bal MD 12/07/2016 08:10 A
[2016-12-06] MEDS ORDERED: ONDANSETRON 4MG/2ML VIAL (J2405) IV PRN (19:00)
[2016-12-06] MEDS ORDERED: ACETAMINOPHEN TAB 650MG DOSE (2X325MG) PO PRN (19:00)
[2016-12-06] MEDS ORDERED: FURO40TA2 PO (19:11)
[2016-12-06] MEDS ORDERED: THIA100T6 PO (19:11)
[2016-12-06] MEDS ORDERED: FOLI1TAB4 PO (19:11)
[2016-12-06] MEDS ORDERED: PENT400T19 PO (19:11)
[2016-12-06] MEDS ORDERED: LACT10SO29 PO (19:11)
[2016-12-06] MEDS ORDERED: SPIR100T PO (19:11)
[2016-12-06] MEDS ORDERED: GABA-279 PO (19:11)
[2016-12-06] MEDS ORDERED: FAMO1TAB11 PO (19:11)
[2016-12-06] MEDS ORDERED: LACTULOSE 20 GM/30 ML SYRUP UD PO PRN (19:45)
[2016-12-06 21:40] VITALS: BP 121/68
[2016-12-06] MEDS ORDERED: HEPARIN SOD (PORCINE) 5000 UNITS/ML VIAL SC SCH (22:00)
[2016-12-06] MEDS ORDERED: LORazepam 2 MG/ML VIAL (J2060) IV PRN (22:00)
[2016-12-06] MEDS: FAMOTIDINE 20 MG TAB PO SCH (22:16)
[2016-12-06] MEDS: GABAPENTIN 100 MG CAP PO SCH (22:16)
[2016-12-06] MEDS: PENTOXIFYLLINE 400 MG TAB PO SCH (22:16)
[2016-12-06] MEDS ORDERED: SLF 3 ML SYR IV PRN (22:45)
[2016-12-06] MEDS: MEROPENEM INJ 1 GM in D5W MINI-BAG PLUS 100 ML IV SCH (22:47)
[2016-12-07] VITALS (7 sets, daily range): BP systolic 101–116; BP diastolic 52–66
[2016-12-07 05:47] LABS: ADD MANUAL DIFFER YES; MEAN CORPUSCULAR HGB CONC 34.2 g/dl (32.0-36.5); PLATELET COUNT, AUTOMATED 201 k/mm3 (150-450); RED CELL DISTRIBUTION WIDTH 14.8 % (11.5-14.5); WHITE BLOOD COUNT 23.2 K/mm3 (4.0-10.0)
[2016-12-07 05:53] LABS: ALBUMIN 1.4 GM/DL (3.2-5.2); ALBUMIN/GLOBULIN RATIO 0.27 (1.00-1.93); ALKALINE PHOSPHATASE 331 U/L (45-117); ALT/SGPT 69 U/L (12-78); ANION GAP 8 MEQ/L (8-16); AST/SGOT 172 U/L (15-37); BILIRUBIN,TOTAL 7.1 MG/DL (0.2-1.0); BLOOD UREA NITROGEN 19 MG/DL (7-18); CALCIUM LEVEL 7.6 MG/DL (8.5-10.1); CARBON DIOXIDE LEVEL 24 MEQ/L (21-32); CHLORIDE LEVEL 94 MEQ/L (98-107); GLOMERULAR FILTRATION RATE > 60.0 (>56); GLUCOSE, FASTING 137 MG/DL (70-105); MAGNESIUM LEVEL 2.3 MG/DL (1.8-2.4); POTASSIUM SERUM 3.5 MEQ/L (3.5-5.1); SODIUM LEVEL 126 MEQ/L (136-145); TOTAL PROTEIN 6.6 GM/DL (6.4-8.2)
[2016-12-07] MEDS: SLF 3 ML SYR IV SCH ×3 (05:57→20:57)
[2016-12-07] MEDS: MEROPENEM INJ 1 GM in D5W MINI-BAG PLUS 100 ML IV SCH ×2 (05:57→14:45)
[2016-12-07 06:43] LABS: BANDS 1 % (< 11); BASOPHILS 1 % (0-4); EOSINOPHILS 2 % (0-5)
[2016-12-07 06:44] LABS: ANISOCYTOSIS 1+
--- NOTE | 2016-12-07 07:25 | HPE ---
DATE OF ADMISSION: 12/06/2016 PRIMARY CARE PROVIDER: [facility]. CHIEF COMPLAINT: Continuation of abdominal discomfort/pain, as well as weakness and decreased food intake. HISTORY OF PRESENT ILLNESS: Mr. Machuca is a 56-year-old male with multiple past medical history who was encouraged by his primary care at the [facility] (ID) to come to the emergency room (ER) due to abdominal pain and discomfort as well as weakness and decreased food intake. Patient just recently had been discharged from [facility] (11/22/2016 to 12/03/2016), due to decompensated alcoholic cirrhosis as well as hypokalemia and alcohol abuse. During the course of the hospitalization, patient had two peritoneal taps done, one was remarkable for infection, however, his white blood cells (WBCs) continued to steadily increase despite negative source of infection, including blood, urine, and peritoneal fluid. Patient expressed that he has been having abdominal pain for the past month and he feels that it is mildly increased. Patient also expressed that he felt warm for the past 2 days, however patient has not taken his temperature. According to patient's sister, his food intake has been decreased yesterday and for the past 2 days and his last food intake was this morning when he had four M and M's and last night he had a small portion of dinner. Patient expressed that his last drink was 3 weeks ago, however patient has a history of heavy drinking. He had about 4-5 shots of whiskey per day for a long time. Patient also feels weaker and more tired for the past 2 days. Patient also complained about noticing his urine was dark brown for the past several weeks. Today, patient was seen at the ID in [place] by the primary care who recommended that it is better for patient to come to the ER. ALLERGIES: PENICILLIN - Patient expressed that it was when he was very young and he cannot remember what kind of reaction patient had with penicillin, however patient expressed that he does not feel that he has any allergy to penicillin since then. PAST MEDICAL HISTORY: 1. History of migraine. 2. Hypertension. 3. Kidney stone. 4. Alcohol abuse. 5. Hypercholesterolemia with cholesterol 313 in 2000. 6. History of umbilical hernia. PAST SURGICAL HISTORY: Umbilical hernia repair done in [facility] in [place] in 2015. He ended up with urinary retention. Had a Dumont catheter on discharge and was removed in 03/11/2016, at [facility] ER. SOCIAL HISTORY: Patient expressed that he lives with his sister, also his sister's two grandsons, as well as their mother and another sister lives with them as well. Patient has one son and two daughters who have been using illegal drugs. Patient expressed that he started drinking alcoholic beverages at age 18. At first he was drinking 1-2 beers a day, however, for the past several months he expressed that he has been drinking more. However, 3 weeks ago was his last drink. Patient also started smoking around age 18 and he said that he smoked about 10 cigarettes at that time, however, up to half a pack. Patient still smokes. Patient also smoked marijuana occasionally. Patient expressed that he has his own apartment, however at this time, due to the better environment is at his sister's house, with nobody drinking alcohol. Patient is . 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 FAMILY HISTORY: Patient has four sisters, one of his sisters has heart problems. Patient also has two brothers and one has a heart problem. Patient's father at age 45 due to a heart attack. Patient's mother is still alive and she is 80 years old and she is healthy for her age. HOME MEDICATIONS: - famotidine 40 mg by mouth nightly - folic acid 1 mg by mouth daily - furosemide 40 mg by mouth daily - gabapentin 100 mg by mouth twice a day - lactulose 15 mL by mouth twice a day as needed for constipation - pentoxifylline 400 mg by mouth three times a day - spironolactone 100 mg by mouth daily - thiamine HCl 100 mg by mouth daily REVIEW OF SYSTEMS: GENERAL: Patient expressed that he feels warm, however patient did not take his temperature. Patient denies chills or night sweats. Patient does not know if he has lost or gained weight. HEENT: Patient denies acute vision or hearing changes. Patient denies hallucinations. Patient denies problem with chewing food or sinusitis. However , patient expressed that he has reflux. NECK: Patient denies lumps, bumps, or decreased range of motion of his neck. HEART: Patient denies chest pain, racing or skipping heartbeat, or palpitations. LUNGS: Patient expressed that he had shortness of breath, however after having paracentesis his shortness of breath has decreased and his shortness of breath is getting better. Patient denies coughing. ABDOMEN: Patient expressed that he has abdominal pain and discomfort, 4-5 out of 10, all over his abdomen. Patient expressed that the pain increased with palpation and putting pressure on his abdomen. Patient denies diarrhea, constipation, melena, hematochezia, nausea, or vomiting. NEUROLOGIC: Patient denies history of transient ischemic attack (TIA), seizure or seizure-type activities. PHYSICAL EXAMINATION: VITAL SIGNS: Temperature 97.7, pulse 93, respiratory rate 18, blood pressure 112/65, pulse oximetry 99% on room air. GENERAL APPEARANCE: Patient was lying in bed, in no acute distress. Patient was awake, alert, and oriented to time, place, and person. HEENT: Normocephalic, atraumatic. Icterus present in eyes and the skin. Oral mucosa is moist. LUNGS: Patient has mild exhale wheezing as well as scattered rhonchi at the base of the lung. Good air movement. HEART: Regular rate and rhythm, normal S1, S2. No rub or gallop was noticed. ABDOMEN: Distended, soft, tender to palpation in all quadrants. Positive bowel sounds in all quadrants. Ascites present. SKIN: Patient has icteric skin with possible spider angioma. EXTREMITIES: No lower extremity edema. +2 pulses in both lower extremities. Patient has normal range of motion in both upper and lower extremities. LABORATORY DATA: White blood cells 24.7, red blood cells 2.70, hemoglobin 10.5, hematocrit 30.7 MCV 113.7, MCH 38.8, MCHC 34.1, RDW 14.7, platelet count 191, neutrophil percentage 87, band neutrophils 11, lymphocytes 5, monocytes 1, eosinophils 1, platelet estimate normal, macrocytosis 2+. PT 17.2, INR 1.37, aPTT 40.3. Sodium 131, potassium 3.7, chloride 95, carbon dioxide 26, anion gap 10, BUN 19, creatinine 0.89, glomerular filtration rate more than 60, fasting glucose 106, calcium 7.6, total bilirubin 8.2, direct bilirubin 6.6, AST 196, ALT 81, alkaline phosphatase 380, ammonia less than 10, total protein 6.9, albumin 1.6. CT abdomen and pelvis with IV and oral contrast which indicated the finding that is similar to the prior studies with mild to moderate diffuse abdominal ascites, mild splenomegaly, intrarenal calculus upper pole left kidney 4 mm in diameter, and left colonic diverticulosis. Incidental note is made of an anatomical variant of the upper abdominal aorta known as celiacomesenteric trunk. This is a normal arterial anatomic variant. ASSESSMENT AND PLAN: 1. Abdominal pain/discomfort. This is possibly secondary to a spontaneous bacterial peritonitis (SBP). Patient has elevation of leukocytosis. Also, complete blood count (CBC) indicated bandemia, however patient is afebrile. However, physical finding correlates with SBP, therefore we have started patient on antibiotic (meropenem). We will continue monitoring patient's white blood cells. Also, we have ordered a C-reactive protein, result is pending at this time. Also, we have ordered paracentesis for laboratory purpose and we have ordered ascites albumin as well as fungal smear and culture and gram stain (GS), anaerobic culture, acid-fast bacilli (AFB) smear and culture, total protein, specific gravity body fluid, and we are waiting for the result at this time. 2. Decompensated alcoholic cirrhosis. At this time, we will continue patient on the current medication including Lasix and spironolactone. Also, we have started patient on no added salt diet. Also, we will continue patient on thiamine and folate. Also, we will continue patient on lactulose. Patient's ammonia level was within normal limits. 3. Hyponatremia. This is possibly secondary to cirrhosis. At this time, we will continue monitoring sodium level. 4. Alcohol abuse. We will continue monitoring patient for alcohol withdrawal. However, patient expressed that his last drink was 3 weeks ago. At this time, we have started patient on Ativan 1 mg every 2 hours for anxiety and agitation. Also, we will continue patient on folate and thiamine. 5. Jaundice. This is possibly secondary to cirrhosis. On the previous admission, patient had been tested for hepatitis panel as well as HIV which was negative. 6. Deep venous thrombosis (DVT) prophylaxis. Patient is on thromboembolism deterrents (TEDs) and sequential compression device. 7. Leukocytosis. Patient has been having leukocytosis in the previous visits. This could be secondary to stress from the cirrhosis. Also, it could be secondary due to infection. We have ordered blood culture as well as a urinalysis, results are pending at this time. Also, we have ordered paracentesis for sending the same of ascites to the lab and the result is pending. However, at this time we have started patient on meropenem. Also, I have ordered C-reactive protein, result is pending at this time. We will continue monitoring patient for any abnormal symptoms. 8. Macrocytic anemia. This is secondary to alcohol usage. At this time, patient is on folate and thiamine. Patient may require vitamin B12. We will continue monitoring patient for any abnormal symptoms. My preceptor for this patient encounter was Dr. Francheska Zambrano. The preceptor was physically present in the building during the encounter and was fully available. As needed, all aspects of the patient interview, examination, medical decision making process, and medical care plan development were reviewed and approved by the preceptor. The preceptor is aware and concurs with the plan as stated in the body of this note and will attest to such by his/her cosignature. I, Francheska Zambrano, have both independently examined this patient as well as reviewed the documentation. I have discussed in detail with the resident the findings and plan of treatment as documented in the residents documentation. I will continue to follow the patient and offer further guidance to the patients care as necessary during this hospital stay. ALEXANDRE
[2016-12-07] MEDS: GABAPENTIN 100 MG CAP PO SCH ×2 (07:48→20:57)
[2016-12-07] MEDS: PENTOXIFYLLINE 400 MG TAB PO SCH ×2 (07:48→14:45)
[2016-12-07] MEDS: FOLIC ACID 1 MG TAB PO SCH (07:49)
[2016-12-07] MEDS: THIAMINE 100 MG TAB PO SCH (07:49)
[2016-12-07] MEDS: SPIRONOLACTONE 50 MG TAB PO SCH (07:49)
[2016-12-07] MEDS ORDERED: FUROSEMIDE 40 MG TAB PO SCH (09:00)
--- NOTE | 2016-12-07 14:39 | IPNPDOC ---
Text Note Date of Service The patient was seen on 12/07/16. NOTE Subjective: Patient is a 56 year old male with a PMHx of Alcoholic cirrhosis ( history of decompensation with ascites), Alcoholic hepatitis, HTN, DLP, Kidney stones and Umbilical hernia who presented to the ER because he was sent in by [facility] for abdominal pain. Upon questioning he's noted to have this abdominal pain for 2 months duration. He has been having a persistent leukocytosis from the prior admission. Patient has last had a paracentesis done on 11/30. Patient was admitted for persistent leukocytosis with bandemia and abdominal pain that has been present for 2 months. Hospitalist was called for admission. He is currently being evaluated for possible SBP. Patient was seen and examined at the bedside. He notes that his abdomen is distended, diffusely tender. Objective: Vitals (See below) General: Lying in bed, no acute distress, comfortable, AAOx3 HEENT: NC, AT CVS: RRR, +S1S2 Lungs: Fair air entry b/l, -w/r/r Abdomen: Tense, Distended, Diffusely tender, +BSx4 Extremities: +PPx4, - Edema, - Calf tenderness Assessment and plan: 1. Diffuse abdominal pain with distension - likely 2/2 ascites - possibly 2/2 SBP - Presented with abdominal pain, no fevers reported - Physical with distension - Leukocytosis of 25 with bandemia - Will get paracentesis completed today with fluid for analysis - c/w Meropenem 1 g q8h for coverage - If fluid analysis negative; will discontinue antibiotics - Dr. Nair on case - appreciate her input - Will consult GI 2. Decompensated alcoholic cirrhosis - 2/2 ascites - No elevation in ammonia - c/w Lasix and Spironolactone - c/w Thiamine and Foalte - Will restart Rifaxamin after antibiotics are completed 3. Hyponatremia - likely 2/2 hypotonic hypervolemia - 2/2 cirrhosis - has trended down this morning; - will go for paracentesis today - will re-evaluate after procedure 4. Alcohol abuse - has stopped drinking alcohol 3 weeks ago 5. Jaundice - Bilirubin levels have continued to trend down 6. Macrocytic anemia - likely 2/2 cirrhosis - Will monitor for now 7. DVT prophylaxis - c/w SCDs VS,Fishbone, I+O VS, Fishbone, I+O Laboratory Tests 12/07/16 05:04 Red Blood Count 2.68 L, Mean Corpuscular Volume 114.0 H, Mean Corpuscular Hemoglobin 39.0 H, Mean Corpuscular Hemoglobin Concent 34.2, Red Cell Distribution Width 14.8 H, Calcium Level 7.6 L, Aspartate Amino Transf (AST/SGOT ) 172 H, Alanine Aminotransferase (ALT/SGPT) 69, Alkaline Phosphatase 331 H, Total Bilirubin 7.1 H, Total Protein 6.6, Albumin 1.4 L Vital Signs Date Time Temp Pulse Resp B/P (MAP) Pulse Ox O2 Delivery O2 Flow Rate FiO2 12/07/16 12:00 98.4 98 18 113/60 (77) 97 Room Air I&O- Last 24 Hours up to 6 AM 12/07/16 05:59 Intake Total 100 ml Output Total 150 ml Balance -50 ml RICHARD ARREDONDO MD Dec 07, 2016 14:39
[2016-12-07 15:24] LABS: RBC PERITONEAL FLUID < 10 (<10mm3 cells/uL); TNC PERITONEAL FLUID 68 cells/uL (0-20)
[2016-12-07 15:58] LABS: BF DIFF IF INDICATED? YES (NO); PERITONEAL FL COLOR YELLOW (COLORLESS)
--- NOTE | 2016-12-07 16:10 | REP ---
PA and lateral chest: Comparisons are 11/24 2016 and 01/13/2013. The lung watkins are clear. The cardiac size is normal The rommel, mediastinum, and bony thorax are unremarkable. Impression: Negative PA and lateral chest. There is no interval change. Signed by Sameer Bull MD 12/07/2016 04:00 P
--- NOTE | 2016-12-07 16:44 | REP ---
Ultrasound-guided paracentesis The procedure was performed under the direct supervision of Dr. Bal. The risks and benefits of the procedure were explained to the patient and informed consent was obtained. The largest pocket of fluid was localized in the right flank using ultrasound guidance. The skin was prepped and draped in a sterile fashion. 1% lidocaine was used as a local anesthetic. An 8-Amharic multi side-hole catheter was inserted using trocar technique. 3150 mL of cloudy yellow fluid was withdrawn with a sample sent to the lab for analysis. The the patient tolerated the procedure well and there were no immediate complications. After the appropriate amount of monitored convalescence the patient was discharged from the department. Reviewed by ALFREDO English 12/07/2016 03:42 PSigned by Chacorta Bal MD 12/07/2016 04:35 P
[2016-12-07 17:01] LABS: SPEC. GRAVITY BODY FLUIDS 1.012 (NOT ESTABLISHED)
[2016-12-07 17:24] LABS: CC BF DIFF EXAM CYTOCENTRIFUGE
--- NOTE | 2016-12-07 18:03 | CR ---
DATE OF CONSULTATION: 12/07/2016 STATUS OF INPATIENT: Inpatient requesting physician is hospitalist service. REASON FOR CONSULTATION: Alcoholic hepatitis cirrhosis. HISTORY OF PRESENT ILLNESS: This is a 56-year-old gentleman with a longstanding history of alcoholism since the age of 18 who, over the past two months, has started developing abdominal swelling, abdominal pain and was admitted to the hospital for paracentesis twice and was started on prednisone 40 mg daily for severe alcoholic hepatitis approximately two weeks ago. Unfortunately, the prednisone was discontinued and pentoxifylline was replaced. The patient was scheduled for routine paracentesis as an outpatient; however, at that point, he was complaining of abdominal pain and intense ascites and was deferred to [facility] emergency room (ER) for further evaluation. The patient was admitted and had a paracentesis performed, which alleviated his abdominal pain significantly; however, he continues to have right upper quadrant abdominal pain as well as some nausea at times. PAST MEDICAL HISTORY: 1. Alcoholism since the age of 18. 2. Alcoholic cirrhosis. 3. Alcoholic hepatitis. 4. Ascites. 5. Hypertension. PREVIOUS SURGICAL HISTORY: Umbilical hernia repair. SOCIAL HISTORY: Positive for alcohol since the age of 18. He stopped drinking approximately three weeks ago on a previous admission and has not started drinking again. He continues to smoke cigarettes. MEDICATIONS AT HOME: - famotidine - folic acid - Lasix 40 mg daily - spironolactone 100 mg daily - lactulose 15 mg twice a day FAMILY HISTORY: Negative for colorectal carcinoma, inflammatory bowel disease. ALLERGIES: PENICILLINS. REVIEW OF SYSTEMS: GENERAL: Negative for night sweats, fevers or chills. Positive for weight loss. Positive for fatigue and weakness. Positive for dark urination. PULMONARY: Negative for hemoptysis, pleuritic-type chest pain. CARDIAC: Negative for orthopnea, paroxysmal nocturnal dyspnea (PND). GASTROINTESTINAL (GI): As per history of present illness (HPI). GENITOURINARY (): Negative for hematuria, dysuria. Positive for dark urine for the past 1-2 months. MUSCULOSKELETAL: Negative for arthralgias, myalgias. PHYSICAL EXAMINATION: Temperature 98.4, pulse 98, respiratory rate 18, blood pressure 113/60, pulse oximetry 97% on room air. GENERAL: He is awake, alert and oriented times three. He is status post paracentesis and is fairly comfortably in bed at this point, reading a magazine. He is nontoxic in appearance. He is not confused. There is no asterixis. HEAD, EYES, EARS, NOSE and THROAT: Are grossly without abnormality with the exception of scleral icterus. NECK: Is negative for lymphadenopathy. CHEST: Is coarse distant breath sounds without crackles or rhonchi. ABDOMEN: Is soft. Mild ascites is still present. He is status post paracentesis approximately two hours ago. I feel no masses. There is mild hepatomegaly approximately 1.5 cm below costal margin in mid axillary line. The liver is tender to palpation. The rest of the abdomen is normal. I do not appreciate any splenomegaly. EXTREMITIES: Are negative for pedal edema. RECTAL EXAMINATION: Has been deferred. NEUROLOGIC EXAMINATION: He ambulates with the assistance of a walker. He moves all extremities equally and bilaterally. There is no asterixis. He is awake, alert and oriented times three. There is no overt confusion at this time. LABORATORY FINDINGS: Sodium 126, potassium 3.5, chloride 94, BUN 19, creatinine 0.8. Total bilirubin 8.2/7.1 and direct bilirubin 6.6, AST 196, ALT 181, alkaline phosphatase 380, albumin is 1.4. PT/INR is 1.37. Platelet count is 201, hemoglobin 10.4, hematocrit 30.5, MCV is 114. Ascites fluid from 12/07/2016 is pending. Previous paracentesis on 11/22/2016 showed a fluid neutrophil count of 24, which is unremarkable. IMAGING TESTS: 11/22/2016-Ultrasound right upper quadrant. IMPRESSION: 1. Gallbladder with presumed sludge and mild wall thickening, which may be secondary to chronic ascites. No biliary ductal dilatation. 2. Fatty infiltration of the liver. 3. Moderate ascites. 11/26/2016-CT abdomen and pelvis with oral contrast only. IMPRESSION: 1. Borderline liver size increase 2. Mild splenomegaly. 3. Mild diffuse abdominal ascites. 4. 3-4 mm intrarenal calculus with left kidney upper pole and left colonic diverticulosis 12/06/2016-CT abdomen and pelvis with intravenous (IV) and oral contrast: IMPRESSION: Findings are similar to prior study with mild to moderate diffuse abdominal ascites, mild splenomegaly intrarenal calculus, upper pole left kidney 4 mm in diameter and left colonic diverticulosis. Incidental note is made of an anatomic variant of the upper abdominal aorta known as celiacomesenteric trunk, which is a normal anatomic variant. IMPRESSION: 1. Severe alcoholic hepatitis with very likely underlying alcoholic cirrhosis. RECOMMENDATIONS: 1. Continue supportive measures as is currently being done. I would continue prednisone 40 mg daily for a full month instead of pentoxifylline, as the patient has no renal impairment at this time. 2. Continue nutritional support. DISCUSSION: 1. I note that the patient was started on prednisone 40 mg daily approximately two weeks ago for severe alcoholic hepatitis with a discriminant factor of greater than 32. Fortunately, he has stopped drinking alcohol; however, typically, cessation of alcohol does not cure alcoholic hepatitis immediately and will possibly take several weeks or even months to resolve. In the meantime, with a discriminant factor of greater than 32, his one month mortality remains between 25-40% and consequently, his overall prognosis is guarded. 2. His ascites is currently being controlled with serial paracentesis, Lasix and spironolactone. I note his renal function is completely normal. His BUN is normal as well. I would increase his Lasix to 40 mg twice a day dosing. I would at this time continue his spirolactone at 100 mg daily. We will continue as needed abdominal paracentesis for comfort and hopefully, adjust his diuretic regimen to lessen the need for taps. At this time I will continue antibiotics, which have been started empirically, until spontaneous bacterial peritonitis (SBP) has been ruled out by a cell count that is currently still pending. 3. His abdominal pain is currently significantly better after paracentesis; however, as the alcoholic hepatitis resolves over the next weeks or months, his liver tenderness should as well. I would hold off on narcotic therapy for this discomfort in this cirrhotic patient. At this time, I will sign off on this patient. Please call me on an as needed basis.
[2016-12-07] MEDS: FUROSEMIDE 40 MG TAB PO SCH (20:56)
[2016-12-07] MEDS: rifAXIMin 550 MG TAB (XIFAXAN) PO SCH (20:57)
[2016-12-07] MEDS: FAMOTIDINE 20 MG TAB PO SCH (20:57)
[2016-12-08 04:58] VITALS: BP 113/60
[2016-12-08] MEDS: SLF 3 ML SYR IV SCH ×3 (05:50→20:00)
[2016-12-08 06:37] LABS: ADD MANUAL DIFFER YES; MEAN CORPUSCULAR HEMOGLOBIN 38.1 pg (27.0-33.0); MEAN CORPUSCULAR HGB CONC 33.6 g/dl (32.0-36.5); MEAN CORPUSCULAR VOLUME 113.5 fl (80.0-96.0); PLATELET COUNT, AUTOMATED 205 k/mm3 (150-450); RED CELL DISTRIBUTION WIDTH 15.5 % (11.5-14.5); WHITE BLOOD COUNT 22.8 K/mm3 (4.0-10.0)
[2016-12-08 07:04] LABS: ALBUMIN 1.4 GM/DL (3.2-5.2); ALBUMIN/GLOBULIN RATIO 0.26 (1.00-1.93); ALKALINE PHOSPHATASE 363 U/L (45-117); ALT/SGPT 70 U/L (12-78); ANION GAP 9 MEQ/L (8-16); AST/SGOT 190 U/L (15-37); BILIRUBIN,TOTAL 6.2 MG/DL (0.2-1.0); BLOOD UREA NITROGEN 19 MG/DL (7-18); CALCIUM LEVEL 7.5 MG/DL (8.5-10.1); CARBON DIOXIDE LEVEL 23 MEQ/L (21-32); CHLORIDE LEVEL 94 MEQ/L (98-107); CREATININE FOR GFR 0.68 MG/DL (0.70-1.30); GLOMERULAR FILTRATION RATE > 60.0 (>56); GLUCOSE, FASTING 85 MG/DL (70-105); POTASSIUM SERUM 3.7 MEQ/L (3.5-5.1); SODIUM LEVEL 126 MEQ/L (136-145); TOTAL PROTEIN 6.7 GM/DL (6.4-8.2)
[2016-12-08 07:55] LABS: BANDS 2 % (< 11); BASOPHILS 1 % (0-4); EOSINOPHILS 3 % (0-5)
[2016-12-08 07:57] LABS: ANISOCYTOSIS 1+
[2016-12-08 08:00] VITALS: BP 126/81
[2016-12-08] MEDS: FUROSEMIDE 40 MG TAB PO SCH ×2 (08:48→17:27)
[2016-12-08] MEDS: predniSONE 20 MG TAB PO SCH (08:48)
[2016-12-08] MEDS: FOLIC ACID 1 MG TAB PO SCH (08:49)
[2016-12-08] MEDS: SPIRONOLACTONE 50 MG TAB PO SCH (08:49)
[2016-12-08] MEDS: rifAXIMin 550 MG TAB (XIFAXAN) PO SCH ×2 (08:49→20:00)
[2016-12-08] MEDS: GABAPENTIN 100 MG CAP PO SCH ×2 (08:49→20:00)
[2016-12-08] MEDS: THIAMINE 100 MG TAB PO SCH (08:49)
[2016-12-08 11:03] LABS: OSMOLALITY URINE 450 MOSM/KG (500-800)
--- NOTE | 2016-12-08 11:18 | CR ---
DATE OF CONSULTATION: 12/07/2016 I was asked to consult by Dr. Zambrano for evaluation of leukocytosis in a patient with alcoholic hepatitis and ascites. HISTORY OF PRESENT ILLNESS Mr. Machuca is a 56-year-old gentleman with a history of alcoholic be used for 30 years to drank on an average of five whiskey's a day because he was bored. The patient was admitted from 11/22 discharged on 11/30, and I saw him on consultation during that hospitalization. The patient during that admission had alcoholic hepatitis, hyperbilirubinemia, jaundice, severe abdominal pain, dysphagia and hiccups. He was started on prednisone for treatment of alcoholic hepatitis and had a paracentesis, which did not show any evidence of infection. The patient was home for less than a week, he went to see his [place] provider who recommended he gets readmitted to the hospital at the [facility] in [place]. The patient refused and therefore he came to our hospital. He states he feels the same as last admission. There is nothing that changed. There is no fever or chills or night sweats. He does not have a cough or shortness of breath. He states his abdomen has been consistently painful and he has this uncomfortable feeling of dysphagia, hiccups and burning in the back of her his throat, mostly in the upper esophageal area. PAST MEDICAL HISTORY: Significant for alcoholic hepatitis, which according to the patient and records, I do not think he was discharged home on prednisone. Migraines. Hypertension. Kidney stone. Hypercholesteremia. Umbilical hernia repair. Alcohol abuse. PAST SURGICAL HISTORY: Umbilical hernia repair done at the [facility] in [place], February 2016, complicated by urinary retention for which he had a Dumont catheter removed in our emergency room. SOCIAL HISTORY: Alcohol abuse, five whiskey's a day. He states he did not drink since he was discharged home on the . He went to his sister's for recovery. He smokes a pack of cigarettes a day. He does not use drugs. He is . He is a . 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 He also does peer to peer for alcohol addiction. ALLERGIES: 1. PENICILLIN. MEDICATIONS: - folic acid 1 mg daily - Lasix 40 mg daily - aldactone 100 mg daily - thiamine 100 mg daily - meropenem 1 gram IV q.8 h - lorazepam p.r.n. - famotidine 40 mg p.o. q.h.s. - gabapentin 100 mg p.o. t.i.d. - Trental 400 mg by mouth t.i.d. - lactulose p.r.n. - Zofran p.r.n. PHYSICAL EXAMINATION: Temperature is 98.4, pulse 98, respirations 18, blood pressure 113/60, O2 sat 97 % on room air. HEART: Normal S1-S2. No murmurs. LUNGS: Clear. No wheezes or rhonchi. ABDOMEN: Distended, tender to touch, mostly diffusely. No rebound. EXTREMITIES: No clubbing, cyanosis or edema. No calf tenderness. SKIN: He has multiple telangiectasias on the upper chest, gynecomastia. HEENT: Pupils equal and active, icteric. Oropharynx is clear with mild erythema of the chair and pharynx but no thrush and no lesions. NEUROLOGIC: Exam alert and oriented times three. Moves all extremities. Strength is within normal, symmetrical. LABORATORY DATA: White count on 11/22 was 15,000 today is 23.2, hemoglobin 10.4 , hematocrit 30.5, platelets 201, 89% neutrophils, 3% lymphocytes. Sodium 126, potassium 3.5, chloride 94, bicarb 24, BUN 19, creatinine 0.8, glucose 137, osmolality 272, calcium 7.6, magnesium 2.3, bilirubin is 7.1, which is down from 11.9 during last admission, AST 172, ALT 69, alk phos 331, CRP 9.13 down from 13.2, albumin 1.9. Peritoneal fluid glucose 129, total protein 1, albumin 0.3, specific gravity is pending. Cell count is still pending. Serology hepatitis A, B and C and HIV were all negative during previous admission. IMAGING STUDIES: CT abdomen and pelvis shows mild to moderate diffuse abdominal ascites, mild splenomegaly, intrarenal calculus of 4 mm on the left side. Colonic diverticulosis. 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 IMPRESSION: This is a 56-year-old gentleman who is readmitted within a week from discharge with the same exact problem as last admission, alcoholic hepatitis, although his LFTs have improved with a decreased bilirubin, continued to hiccups and dysphagia with burning feeling in the back of his throat, which is preventing him from sleeping at night, diffuse abdominal pain. The patient has not had an endoscopy or colonoscopy ever. The patient has persistent leukocytosis of unclear etiology, but blood cultures have been negative. Fluid drained on 11/22 was negative. Repeat paracentesis was done today at 2 o'clock and gram stain culture, AFB fungal were all sent and are pending. A paracentesis had been done on 11/30 as well and 1750 mL of green colored fluid was drawn and discarded. The patient could have leukocytosis from alcoholic hepatitis or from spontaneous bacterial peritonitis. He is currently on meropenem. PLAN: I would suggest restarting prednisone 40 mg daily for alcoholic hepatitis. Continue IV meropenem until results of culture from peritoneal fluid are available. Obtain chest x-ray PA and lateral to look for any other source of infection. Consult GI for colonoscopy and endoscopy or surgery. The patient has this chronic dysphagia and hiccupy feeling, he cannot sleep, and chronic abdominal pain of unclear etiology. His peritoneal fluid is negative and chest x-ray does not show any evidence of infection. Please discontinue meropenem. Case discussed with Dr. Zambrano. ALEXANDRE
--- NOTE | 2016-12-08 11:35 | IPNPDOC ---
Text Note Date of Service The patient was seen on 12/08/16. NOTE Subjective: Patient is a 56 year old male with a PMHx of Alcoholic cirrhosis ( history of decompensation with ascites), Alcoholic hepatitis, HTN, DLP, Kidney stones and Umbilical hernia who presented to the ER because he was sent in by [facility] for abdominal pain. Upon questioning he's noted to have this abdominal pain for 2 months duration. He has been having a persistent leukocytosis from the prior admission. Patient has last had a paracentesis done on 11/30. Patient was admitted for persistent leukocytosis with bandemia and abdominal pain that has been present for 2 months. Hospitalist was called for admission. He is currently being evaluated for possible SBP. Patient was seen and examined at the bedside. He notes that his breathing is doing better, no longer labored. He reports his abdominal tenderness has improved, but some is still there. Denies any nausea, vomiting, constipation or diarrhea. Objective: Vitals (See below) General: Lying in bed, no acute distress, comfortable, AAOx3 HEENT: NC, AT CVS: RRR, +S1S2 Lungs: Fair air entry b/l, -w/r/r Abdomen: Softer, Distended, Diffusely tender, +BSx4 Extremities: +PPx4, - Edema, - Calf tenderness Assessment and plan: 1. Diffuse abdominal pain with distension - likely 2/2 ascites - possibly 2/2 SBP; possibly 2/2 alcoholic hepatitis - Presented with abdominal pain, no fevers reported - Physical with distension - Leukocytosis of 25 with bandemia - s/p paracentesis on 12/07; no evidence of infection - s/p Meropenem 1 g q8h for coverage - c/w Prednisone 40 daily; s/p Pentoxifylline - Dr. Nair and Dr. Ferreira were consulted on case - appreciate their input 2. Decompensated alcoholic cirrhosis - 2/2 ascites - No elevation in ammonia - c/w Spironolactone - Lasix dose increased to BID - Restarted Rifaxamin 3. Hyponatremia - likely 2/2 hypotonic hypervolemia - 2/2 cirrhosis - has trended down; remains unchanged this morning - Urine Sodium of 10 and FENa of 0% - s/p paracentesis - Furosemide dose has been increased - Fluid restrictions have been added - Repeat BMP and Mg this afternoon 4. Alcohol abuse - has stopped drinking alcohol 3 weeks ago - c/w Thiamine and Folate 5. Jaundice - Bilirubin levels have continued to trend down 6. Macrocytic anemia - likely 2/2 cirrhosis - Hg stable - Will monitor for now 7. DVT prophylaxis - c/w SCDs VS,Fishbone, I+O VS, Fishbone, I+O Laboratory Tests 12/08/16 05:11 Red Blood Count 2.70 L, Mean Corpuscular Volume 113.5 H, Mean Corpuscular Hemoglobin 38.1 H, Mean Corpuscular Hemoglobin Concent 33.6, Red Cell Distribution Width 15.5 H, Calcium Level 7.5 L, Aspartate Amino Transf (AST/SGOT ) 190 H, Alanine Aminotransferase (ALT/SGPT) 70, Alkaline Phosphatase 363 H, Total Bilirubin 6.2 H, Total Protein 6.7, Albumin 1.4 L Vital Signs Date Time Temp Pulse Resp B/P (MAP) Pulse Ox O2 Delivery O2 Flow Rate FiO2 12/08/16 08:00 97.9 107 18 126/81 (96) 99 Room Air I&O- Last 24 Hours up to 6 AM 12/08/16 06:00 Intake Total 2080 ml Output Total 1175 ml Balance 905 ml RICHARD ARREDONDO MD Dec 08, 2016 11:35
[2016-12-08 12:00] VITALS: BP 120/67
[2016-12-08 12:54] LABS: ANION GAP 8 MEQ/L (8-16); BLOOD UREA NITROGEN 21 MG/DL (7-18); CALCIUM LEVEL 7.7 MG/DL (8.5-10.1); CARBON DIOXIDE LEVEL 25 MEQ/L (21-32); CHLORIDE LEVEL 93 MEQ/L (98-107); CREATININE FOR GFR 0.87 MG/DL (0.70-1.30); GLOMERULAR FILTRATION RATE > 60.0 (>56); GLUCOSE, FASTING 122 MG/DL (70-105); MAGNESIUM LEVEL 2.1 MG/DL (1.8-2.4); POTASSIUM SERUM 3.9 MEQ/L (3.5-5.1); SODIUM LEVEL 126 MEQ/L (136-145)
[2016-12-08 15:47] LABS: ANION GAP 10 MEQ/L (8-16); BLOOD UREA NITROGEN 22 MG/DL (7-18); CALCIUM LEVEL 7.9 MG/DL (8.5-10.1); CARBON DIOXIDE LEVEL 26 MEQ/L (21-32); CHLORIDE LEVEL 97 MEQ/L (98-107); CREATININE FOR GFR 0.89 MG/DL (0.70-1.30); GLOMERULAR FILTRATION RATE > 60.0 (>56); GLUCOSE, FASTING 137 MG/DL (70-105); MAGNESIUM LEVEL 2.1 MG/DL (1.8-2.4); POTASSIUM SERUM 4.2 MEQ/L (3.5-5.1); SODIUM LEVEL 133 MEQ/L (136-145)
[2016-12-08 16:00] VITALS: BP 135/66
[2016-12-08 18:15] VITALS: BP 117/70
[2016-12-08] MEDS: FAMOTIDINE 20 MG TAB PO SCH (20:00)
[2016-12-08 22:00] VITALS: BP 106/67
[2016-12-09] MEDS: SLF 3 ML SYR IV SCH ×2 (05:43→13:33)
[2016-12-09 06:00] VITALS: BP 117/75
[2016-12-09 06:00] LABS: BASO # 0.2 K/mm3 (0.0-0.2); BASO % 0.8 % (0.0-1.0); EOS # 0.1 K/mm3 (0.0-0.50); EOS % 0.5 % (0.0-3.0); LARGE UNSTAINED CELL # 0.3 K/mm3 (0.0-0.4); LARGE UNSTAINED CELL % 1.1 % (0.0-4.0); MEAN CORPUSCULAR HEMOGLOBIN 37.9 pg (27.0-33.0); MEAN CORPUSCULAR HGB CONC 33.8 g/dl (32.0-36.5); MEAN CORPUSCULAR VOLUME 112.2 fl (80.0-96.0); MONO # 0.8 K/mm3 (0.0-0.8); MONO % 3.3 % (0.0-5.0); NEUTROPHILS % 90.3 % (36.0-66.0); PLATELET COUNT, AUTOMATED 203 k/mm3 (150-450); RED CELL DISTRIBUTION WIDTH 14.5 % (11.5-14.5); WHITE BLOOD COUNT 24.3 K/mm3 (4.0-10.0)
[2016-12-09 06:14] LABS: ALBUMIN 1.8 GM/DL (3.2-5.2); ALBUMIN/GLOBULIN RATIO 0.38 (1.00-1.93); ALKALINE PHOSPHATASE 405 U/L (45-117); ALT/SGPT 65 U/L (12-78); ANION GAP 8 MEQ/L (8-16); AST/SGOT 143 U/L (15-37); BILIRUBIN,TOTAL 4.8 MG/DL (0.2-1.0); BLOOD UREA NITROGEN 22 MG/DL (7-18); CALCIUM LEVEL 7.3 MG/DL (8.5-10.1); CARBON DIOXIDE LEVEL 23 MEQ/L (21-32); CHLORIDE LEVEL 96 MEQ/L (98-107); CREATININE FOR GFR 0.67 MG/DL (0.70-1.30); GLOMERULAR FILTRATION RATE > 60.0 (>56); GLUCOSE, FASTING 147 MG/DL (70-105); MAGNESIUM LEVEL 2.1 MG/DL (1.8-2.4); POTASSIUM SERUM 3.9 MEQ/L (3.5-5.1); SODIUM LEVEL 127 MEQ/L (136-145); TOTAL PROTEIN 6.5 GM/DL (6.4-8.2)
[2016-12-09] MEDS ORDERED: FUROSEMIDE 20 MG TAB PO SCH (09:00)
[2016-12-09] MEDS: SPIRONOLACTONE 50 MG TAB PO SCH (09:38)
[2016-12-09] MEDS: predniSONE 20 MG TAB PO SCH (09:38)
[2016-12-09] MEDS: FOLIC ACID 1 MG TAB PO SCH (09:39)
[2016-12-09] MEDS: GABAPENTIN 100 MG CAP PO SCH (09:39)
[2016-12-09] MEDS: THIAMINE 100 MG TAB PO SCH (09:39)
[2016-12-09] MEDS: rifAXIMin 550 MG TAB (XIFAXAN) PO SCH (09:39)
[2016-12-09] MEDS ORDERED: PRED20TA PO ×2 (11:31→14:31)
[2016-12-09] MEDS ORDERED: FURO40TA2 PO (11:31)
[2016-12-09 14:00] VITALS: BP 118/57
[2016-12-09 15:07] LABS: ANION GAP 8 MEQ/L (8-16); BLOOD UREA NITROGEN 21 MG/DL (7-18); CALCIUM LEVEL 8.1 MG/DL (8.5-10.1); CARBON DIOXIDE LEVEL 24 MEQ/L (21-32); CHLORIDE LEVEL 97 MEQ/L (98-107); CREATININE FOR GFR 0.74 MG/DL (0.70-1.30); GLOMERULAR FILTRATION RATE > 60.0 (>56); GLUCOSE, FASTING 140 MG/DL (70-105); POTASSIUM SERUM 3.9 MEQ/L (3.5-5.1); SODIUM LEVEL 129 MEQ/L (136-145)
--- NOTE | 2016-12-09 21:36 | DSES ---
DATE OF ADMISSION: 12/06/2016 DATE OF DISCHARGE: 12/09/2016 ATTENDING PHYSICIAN: Dr. Francheska Zambrano. PRIMARY CARE PROVIDER: Deepa Pierce. REFERRING PHYSICIAN: None. CONSULTING PHYSICIANS: 1. Dr. Nair. 2. Dr. Ferreira. CONDITION ON DISCHARGE: Stable. FINAL DIAGNOSIS: Abdominal pain, likely secondary to alcoholic hepatitis. PROCEDURE: Paracentesis performed on 12/07/2016, with removal of 3150 mL of fluid. HISTORY OF PRESENT ILLNESS: The patient is a 56-year-old male with a past medical history of alcoholic cirrhosis, history of decompensation with ascites, alcoholic hepatitis , hypertension, dyslipidemia, kidney stone and umbilical hernia, who presented to the emergency room (ER) because he was sent in by [facility] for abdominal pain. Upon questioning, he is noted to have this abdominal pain for two months' duration. He has been having this persistent leukocytosis from prior admission. The patient has had a paracentesis done 11/30/2016, with 1700 mL of fluid removal. The patient was admitted for persistent leukocytosis and bandemia and abdominal pain that has been persistent for two months. Hospitalist was called for admission. HOSPITAL COURSE: 1. Diffuse abdominal pain with distention, likely secondary to ascites, likely secondary to alcoholic hepatitis. Presented with abdominal pain. No fevers reported. Physical with distention, leukocytosis of 25 with bandemia, status post paracentesis on 12/07, with greater than 3000 mL of fluid removed. No evidence of infection. Status post antibiotic coverage with meropenem. He was started on prednisone 40 mg daily, status post pentoxifylline. Dr. Nair and Dr. Ferreira were consulted and we appreciate their input. 2. Decompensated alcoholic cirrhosis secondary to ascites. No elevation in ammonia. Continue with spironolactone. Lasix dose has been increased to twice a day dosing. The patient has been restarted on rifaximine, and he is status post paracentesis. 3. Hyponatremia, likely secondary to hypotonic hypervolemia secondary to cirrhosis. Has stabilized throughout the hospital course. Urine sodium of 10. Status post paracentesis. Furosemide dose has been increased. Fluid restrictions have been added. 4. Alcohol abuse. The patient stopped drinking three weeks ago. Continue with thiamine and folate. 5. Jaundice. Bilirubin levels have been trending down. 6. Macrocytic anemia likely secondary to cirrhosis. Hemoglobin stable. Will continue to monitor. 7. Deep venous thrombosis (DVT) prophylaxis. Continue with sleeve compression devices. DISCHARGE MEDICATIONS: The patient will be discharged home with the following medication list: - prednisone 40 mg by mouth daily - famotidine 400 mg by mouth at bedtime - folic acid 1 mg by mouth daily - gabapentin 100 mg by mouth twice a day - lactulose 50 mL by mouth twice a day as needed for constipation - spironolactone 100 mg by mouth daily - thiamine 100 mg by mouth daily Changed medications include furosemide to 40 mg twice a day. Stopped medications include pentoxifylline. DISCHARGE INSTRUCTIONS: The patient has been advised to followup with his primary care provider and Dr. Ferreira of gastroenterology within the next seven days. He has been advised to remain compliant with treatment plan and medications, and return to the emergency room if he experiences any problems. TIME SPENT ON DISCHARGE: 35 minutes. ALEXANDRE
[2017-01-07] MEDS ORDERED: TRAM50TA2 PO (16:34)
[2017-01-25] MEDS ORDERED: ZANTTAB PO (15:38)
[2017-02-26] MEDS ORDERED: GABA-279 PO (16:56)
[2017-02-26] MEDS ORDERED: FOLI1TAB4 PO (16:56)
[2017-02-26] MEDS ORDERED: THIA100TA PO (16:56)
[2017-02-26] MEDS ORDERED: FURO40TA2 PO (16:56)
[2017-02-26] MEDS ORDERED: FAMO40TA3 PO (16:56)
[2017-02-26] MEDS ORDERED: RANI150T PO (16:56)
[2017-02-26] MEDS ORDERED: [UNRECOGNIZED DRUG - CODE] PO (16:56)
== END 2016-12-09 15:40 | disposition home or self-care (01) | DRG 280 ==
LOC: M ED 11:39 → M ED INP 19:16 → M PCU 21:40 → M MSPAV 12-08 18:13
PROVIDERS: ADMIT Internal Medicine; ATTEND Internal Medicine
PROC: 0W9G3ZZ Drainage of Peritoneal Cavity, Percutaneous Approach (ICD-10-PCS; principal; 2016-12-07)
DX: K70.11 Alcoholic hepatitis with ascites (principal); E87.1 Hypo-osmolality and hyponatremia; I10 Essential (primary) hypertension; N20.0 Calculus of kidney; D53.8 Other specified nutritional anemias; G43.909 Migraine, unspecified, not intractable, without status migrainosus; F10.20 Alcohol dependence, uncomplicated; E78.00 Pure hypercholesterolemia, unspecified; F17.210 Nicotine dependence, cigarettes, uncomplicated; K57.90 Diverticulosis of intestine, part unspecified, without perforation or abscess without bleeding; D72.829 Elevated white blood cell count, unspecified; K70.31 Alcoholic cirrhosis of liver with ascites; K76.0 Fatty (change of) liver, not elsewhere classified; Z79.899 Other long term (current) drug therapy; Z88.0 Allergy status to penicillin

== ENCOUNTER 2016-12-16 17:55 | Inpatient (IN) | payer OTHER ==
[~2016-12-16] VITALS: Ht 172.7 cm; Wt 161.7 kg
[~2016-12-16 17:55] MED LIST changes: +FAMO1TAB11 PO; +FURO40TA2 PO; +LACT10SO29 PO; +PRED20TA PO; +THIA100T6 PO
[2016-12-16] MEDS: NS 1,000 ML IV SCH ×2 (18:23→23:14)
[2016-12-16] MEDS ORDERED: ONDANSETRON 4MG/2ML VIAL (J2405) IV ONE (18:30)
[2016-12-16] MEDS: MORPHINE 2 MG/ML 1ML SYRINGE IV PRN (18:39)
[2016-12-16 19:05] LABS: ADD MANUAL DIFFER YES; MEAN CORPUSCULAR HEMOGLOBIN 37.4 pg (27.0-33.0); MEAN CORPUSCULAR HGB CONC 33.5 g/dl (32.0-36.5); MEAN CORPUSCULAR VOLUME 111.6 fl (80.0-96.0); PLATELET COUNT, AUTOMATED 156 k/mm3 (150-450); RED CELL DISTRIBUTION WIDTH 15.5 % (11.5-14.5); WHITE BLOOD COUNT 14.6 K/mm3 (4.0-10.0)
[2016-12-16 19:12] LABS: INR 1.27
--- NOTE | 2016-12-16 19:36 | ECGEPIP ---
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 RBBB LOW QRS VOLTAGE IN PRECORDIAL LEADS MODERATE ST DEPRESSION SIMILAR TO 11/22/16 Electronically Signed On 12-16-2016 19:36:08 EDT by Eladio Boykin
[2016-12-16 19:40] LABS: ALBUMIN 2.1 GM/DL (3.2-5.2); ALBUMIN/GLOBULIN RATIO 0.46 (1.00-1.93); ALKALINE PHOSPHATASE 439 U/L (45-117); ALT/SGPT 115 U/L (12-78); AMYLASE 56 U/L (25-115); ANION GAP 10 MEQ/L (8-16); AST/SGOT 184 U/L (15-37); BILIRUBIN,DIRECT 3.2 MG/DL (0.0-0.2); BLOOD UREA NITROGEN 15 MG/DL (7-18); CALCIUM LEVEL 7.6 MG/DL (8.5-10.1); CARBON DIOXIDE LEVEL 22 MEQ/L (21-32); CHLORIDE LEVEL 104 MEQ/L (98-107); CREATININE FOR GFR 0.58 MG/DL (0.70-1.30); GLOMERULAR FILTRATION RATE > 60.0 (>56); GLUCOSE, FASTING 103 MG/DL (70-105); POTASSIUM SERUM 4.3 MEQ/L (3.5-5.1); SODIUM LEVEL 136 MEQ/L (136-145); TOTAL PROTEIN 6.7 GM/DL (6.4-8.2)
[2016-12-16 20:28] LABS: EOSINOPHILS 2 % (0-5)
[2016-12-16] MEDS ORDERED: LACTULOSE 20 GM/30 ML SYRUP UD PO ONE (20:30)
[2016-12-16 20:32] LABS: TOXIC GRANULATION 1+
[2016-12-16 20:34] LABS: SCHISTOCYTES 1+
[2016-12-16] MEDS ORDERED: FAMO40TA3 PO (20:47)
[2016-12-16] MEDS ORDERED: FURO40TA2 PO (20:47)
[2016-12-16] MEDS ORDERED: PRED20TA PO (20:47)
[2016-12-16] MEDS ORDERED: XIFA550T PO (20:47)
[2016-12-16] MEDS ORDERED: ONDANSETRON 4MG/2ML VIAL (J2405) IV PRN (22:00)
[2016-12-16] MEDS ORDERED: MORPHINE 2 MG/ML 1ML SYRINGE IV PRN (22:00)
[2016-12-16] MEDS ORDERED: oxyCODONE 5MG TAB PO PRN (22:15)
--- NOTE | 2016-12-16 22:47 | HPE ---
DATE OF ADMISSION: 12/16/2016 PRIMARY CARE PROVIDER: [facility]. ATTENDING PHYSICIAN: Griselda William MD CHIEF COMPLAINT: Worsening abdominal pain. HISTORY OF PRESENT ILLNESS: The patient is a 56-year-old white male with history of alcoholic cirrhosis with ascites who presented to the hospital with worsening abdominal pain. History is provided by himself as well as by review of the chart. Per the patient, he was a heavy drinker but he quit drinking since 11/18/2016. He has been hospitalized here several times for the same issue. He underwent several times paracentesis and ruled out any spontaneous bacterial peritonitis. Recently he was admitted on 12/06/2016, and discharged home on 12/09/2016. Also, he was discharged with oral prednisone for alcoholic hepatitis. During that admission, he consulted with infectious diseases (ID) as well as gastroenterology (GI). Per patient, he still has some chronic abdominal pain. In the last few days, the pain is getting worse gradually. The pain is located in whole abdomen, sharp pain, persistent, worst pain is 10/10 in severity, and also he feels his abdomen is distended. He denies any nausea, vomiting, or hematemesis. No blood in stool. He did not notice anything that makes his pain worse or better and there is no radiation of the pain. In the emergency room (ER), his blood work is similar to his baseline. Due to severe pain, medicine service is called for admission. REVIEW OF SYSTEMS: Denies fever. No chills. No headache, blurred vision. No shortness of breath. No chest pain. No coughing. No nausea, no vomiting. No hematemesis. Positive abdominal pain and abdominal distention. Loose stool, but no rectal bleeding. No dysuria. No tingling, numbness, or weakness in arms or lower extremities. All other systems reviewed and negative. PAST MEDICAL HISTORY: 1. Alcoholic cirrhosis with ascites. 2. Hypertension. 3. Kidney stones. 4. Dyslipidemia. PAST SURGICAL HISTORY: Umbilical hernia repair in 2016. SOCIAL HISTORY: He was a heavy drinker and he stated he quit on 11/18/2016. Also, he used to smoke cigarettes, 10 cigarettes a day for many years, and quit recently too. Denies any illicit drug abuse. He is living at home alone, sometimes he lives with his sister who will take care of him. He is a F[employer]. FAMILY HISTORY: Both father and mother have a heart problem but no other people have alcoholic cirrhosis. ALLERGIES: Allergic to PENICILLIN. MEDICATIONS: - famotidine 40 mg by mouth daily - folic acid 1 mg by mouth daily - Lasix 20 mg by mouth daily - Neurontin 100 mg by mouth twice a day - lactulose 15 mL twice a day as needed - pentoxifylline 400 mg by mouth three times - spironolactone 100 mg by mouth daily - thiamine 100 mg by mouth daily - prednisone 20 mg by mouth daily - Xifaxan 550 mg by mouth daily PHYSICAL EXAMINATION: VITAL SIGNS: Temperature 99.7, heart rate 117, respiratory rate 18, blood pressure 120/83, oxygen saturation 98% on room air. GENERAL: He is awake, alert, oriented times three. He is not in any acute distress. HEENT: Atraumatic. Pupils equal, round, reactive to light. Extraocular muscles intact. Positive jaundice in sclerae. Ears, nose, and throat normal. Mouth mucus moist. LUNGS: Clear. No wheezing. No crackles. HEART: S1, S2, irregular, mild tachycardia. ABDOMEN: Severely distended and mild diffuse tenderness, but no rebound. Bowel sounds positive. Positive ascites. LOWER EXTREMITIES: +1 to +2 edema in bilateral lower extremities. SKIN: No rash. NEUROLOGIC: Nonfocal. PSYCHOLOGICAL: No acute psychosis. DIAGNOSTIC/LABORATORIES: Include the following: CBC and differential showed WBC 14.6, hemoglobin and hematocrit 11.6/34.6, platelets 156. Sodium 136, potassium 4.3, chloride 104, bicarbonate 22, BUN 15, creatinine 0.6, glucose 103, ammonia level is 57. IMPRESSION: 1. Abdominal pain which is likely secondary to alcoholic hepatitis cirrhosis as well as ascites. 2. Alcoholic cirrhosis with ascites. 3. Mild chronic anemia. 4. Increased ammonia level. 5. Leukocytosis. PLAN: Patient will be admitted to the medical/surgical floor. He presented with acute on chronic abdominal pain which is most likely related to alcoholic hepatitis cirrhosis with ascites. He has low grade fever and mild leukocytosis which may be related to prednisone use. He is at high risk for infection, need to rule out spontaneous bacterial peritonitis. I will treat him with IV Levaquin for possible infection. Will follow the blood cultures as well as schedule him for paracentesis tomorrow. Otherwise, will continue his routine medications. He has mildly increased ammonia level but he does not have evidence of hepatic encephalopathy, so will continue to use the lactulose and followup ammonia level in the morning. DARD
[2016-12-16] MEDS: LACTULOSE 20 GM/30 ML SYRUP UD PO SCH (23:13)
[2016-12-16] MEDS: GABAPENTIN 100 MG CAP PO SCH (23:13)
[2016-12-16] MEDS: FAMOTIDINE 20 MG TAB PO SCH (23:13)
[2016-12-16] MEDS: FUROSEMIDE 40 MG TAB PO SCH (23:14)
[2016-12-16 23:40] VITALS: BP 141/90
[2016-12-17] MEDS: rifAXIMin 550 MG TAB (XIFAXAN) PO SCH ×3 (00:17→20:13)
[2016-12-17] MEDS: MORPHINE 2 MG/ML 1ML SYRINGE IV PRN (00:18)
--- NOTE | 2016-12-17 02:16 | REP ---
Clinical: Lower chest and abdominal pain . Comparison: 12/07/2016 . Findings: The mediastinum and cardiac silhouette are stable and within normal limits for portable technique. The lung watkins are clear without acute consolidation, effusion, or pneumothorax. Skeletal structures are intact. Impression: No acute cardiopulmonary process appreciated. Signed by Guillermo Robertson MD 12/17/2016 02:07 A
[2016-12-17] MEDS: NS 1,000 ML IV SCH (04:57)
[2016-12-17 06:00] VITALS: BP 108/59
[2016-12-17 06:01] LABS: ALBUMIN 1.8 GM/DL (3.2-5.2); ALBUMIN/GLOBULIN RATIO 0.46 (1.00-1.93); ALKALINE PHOSPHATASE 335 U/L (45-117); ALT/SGPT 92 U/L (12-78); ANION GAP 11 MEQ/L (8-16); AST/SGOT 137 U/L (15-37); BASO % 0.2 % (0.0-1.0); BILIRUBIN,TOTAL 3.7 MG/DL (0.2-1.0); BLOOD UREA NITROGEN 14 MG/DL (7-18); CALCIUM LEVEL 7.5 MG/DL (8.5-10.1); CARBON DIOXIDE LEVEL 23 MEQ/L (21-32); CHLORIDE LEVEL 102 MEQ/L (98-107); CREATININE FOR GFR 0.63 MG/DL (0.70-1.30); EOS # 0.2 K/mm3 (0.0-0.50); EOS % 1.7 % (0.0-3.0); GLOMERULAR FILTRATION RATE > 60.0 (>56); GLUCOSE, FASTING 105 MG/DL (70-105); LARGE UNSTAINED CELL # 0.1 K/mm3 (0.0-0.4); LYMPH # 0.7 K/mm3 (1.5-4.5); LYMPH % 6.4 % (24.0-44.0); MEAN CORPUSCULAR HEMOGLOBIN 36.7 pg (27.0-33.0); MEAN CORPUSCULAR HGB CONC 32.8 g/dl (32.0-36.5); MONO # 0.5 K/mm3 (0.0-0.8); MONO % 4.8 % (0.0-5.0); NEUTROPHILS # 8.8 K/mm3 (1.8-7.7); PLATELET COUNT, AUTOMATED 135 k/mm3 (150-450); POTASSIUM SERUM 3.9 MEQ/L (3.5-5.1); RED CELL DISTRIBUTION WIDTH 14.8 % (11.5-14.5); SODIUM LEVEL 136 MEQ/L (136-145); TOTAL PROTEIN 5.7 GM/DL (6.4-8.2); WHITE BLOOD COUNT 10.2 K/mm3 (4.0-10.0)
[2016-12-17] MEDS: SPIRONOLACTONE 50 MG TAB PO SCH (08:00)
[2016-12-17] MEDS: FUROSEMIDE 40 MG TAB PO SCH ×2 (08:01→20:13)
[2016-12-17] MEDS: PANTOPRAZOLE 40MG INJ (PROTONIX) (C9113) IV SCH (08:01)
[2016-12-17] MEDS: GABAPENTIN 100 MG CAP PO SCH ×2 (08:01→20:13)
[2016-12-17] MEDS: FOLIC ACID 1 MG TAB PO SCH (08:01)
[2016-12-17] MEDS: predniSONE 20 MG TAB PO SCH (08:01)
[2016-12-17] MEDS: THIAMINE 100 MG TAB PO SCH (08:01)
[2016-12-17] MEDS: ENOXAPARIN 40 MG/0.4 ML SYRINGE (J1650) SC SCH (08:02)
[2016-12-17] MEDS: LACTULOSE 20 GM/30 ML SYRUP UD PO SCH ×2 (08:02→20:13)
--- NOTE | 2016-12-17 13:16 | IPN ---
DATE OF EXAMINATION: 12/17/2016 SUBJECTIVE: The patient tells me that he is feeling a little bit today. However, he still has significant distention and pain in his abdomen. He denies fevers, chills, chest pain, nausea, vomiting, or diarrhea. OBJECTIVE: VITAL SIGNS: Temperature 98.1. Pulse 92. Respiratory rate 20. Blood pressure 108/59. Oxygen (O2) saturation 97% on room air. GENERAL: He is a disheveled middle-aged man, sleeping peacefully, lying on his left side. He does not appear to be in any acute distress. HEENT: He has bitemporal wasting. He has some mild jaundice and mild scleral icterus. Moist mucous membranes. No elevation in central venous pressure (CVP). CARDIOVASCULAR EXAMINATION: S1, S2. Regular. No additional heart sounds are appreciated. RESPIRATORY EXAMINATION: Is clear. ABDOMINAL EXAMINATION: Caput medusae. Tense ascites. EXTREMITIES: No clubbing, cyanosis, or edema. In fact, he appears wasted in the extremities. LABORATORY STUDIES: WBC 10.2 down from 14.6, hemoglobin 10.0, hematocrit 30.6, platelet count 135, erythrocyte sedimentation rate (ESR) is 87. Chemistry panel: Sodium 136, potassium 4.3, chloride 104, bicarbonate 22, BUN 15, creatinine 0.5. Toxicology negative of alcohol. Urinalysis essentially unremarkable. INR of 1.2. MICROBIOLOGY: Blood cultures and urine culture are pending. IMAGING: The patient had a chest x-ray that revealed no acute cardiopulmonary process. ASSESSMENT AND PLAN: This is a 56-year-old man with alcoholic liver cirrhosis presenting with abdominal pain. PROBLEMS: 1. Abdominal pain. Likely secondary to tense ascites. My suspicion for EAR SPECIALIST is less. He has had low-grade temperatures, and he had a leukocytosis. However, his previous taps have been negative. A paracentesis was planned for later today to assess a nucleated cell count. For the time being, he does remain on empiric levofloxacin. On a previous stay, which had a similar presentation, he improved following therapeutic paracentesis. 2. Alcoholic liver cirrhosis. The patient is on prednisone with a slow taper for an elevated discriminant factor. He is on Aldactone 100 mg daily, Lasix 40 mg twice a day, lactulose 50 mL twice a day, and rifaximine 550 mg by mouth twice a day. His Model for End-Stage Liver Disease (MELD) score estimated today is 6%, 3-month mortality, which is actually improved from his last stay. He reportedly did not alcohol for almost 1 month. At this point, he is not a candidate for transplant as of yet. He follows [facility] and is working on establishing outpatient with a economics lecturer. He was previously seen by Dr. Ferreira, who started the prednisone taper during his last hospitalization. 3. Chronic anemia. Mild and stable. Likely related to liver cirrhosis and alcohol abuse. 4. Deep venous thrombosis (DVT) prophylaxis. The patient is on Lovenox. 5. Gastroesophageal reflux disease. He is on Pepcid. DISPOSITION: Will follow the patient's peritoneal cell counts and his abdomen pain following paracentesis. He likely would benefit from regularly scheduled outpatient paracenteses. Should his symptoms improve, he could likely be discharged home with close followup within the next 24-72 hours.
[2016-12-17 13:20] LABS: ALBUMIN 1.9 GM/DL (3.2-5.2); ALBUMIN/GLOBULIN RATIO 0.43 (1.00-1.93); ALKALINE PHOSPHATASE 382 U/L (45-117); ALT/SGPT 91 U/L (12-78); ANION GAP 8 MEQ/L (8-16); AST/SGOT 137 U/L (15-37); BLOOD UREA NITROGEN 14 MG/DL (7-18); CALCIUM LEVEL 7.7 MG/DL (8.5-10.1); CARBON DIOXIDE LEVEL 23 MEQ/L (21-32); CHLORIDE LEVEL 104 MEQ/L (98-107); CREATININE FOR GFR 0.75 MG/DL (0.70-1.30); GLOMERULAR FILTRATION RATE > 60.0 (>56); GLUCOSE, FASTING 126 MG/DL (70-105); POTASSIUM SERUM 4.2 MEQ/L (3.5-5.1); SODIUM LEVEL 135 MEQ/L (136-145); TOTAL PROTEIN 6.3 GM/DL (6.4-8.2)
[2016-12-17 16:11] LABS: RBC PERITONEAL FLUID < 10 (<10mm3 cells/uL); TNC PERITONEAL FLUID 115 cells/uL (0-20)
[2016-12-17 16:13] LABS: BF DIFF IF INDICATED? YES (NO); PERITONEAL FL COLOR YELLOW (COLORLESS)
--- NOTE | 2016-12-17 16:59 | REP ---
RIGHT PARACENTESIS: The procedure was preformed by ALFREDO Cervantes under the direct supervision of Dr. Dahl. The procedure along with its risks, benefits, and complications were discussed with the patient prior to the procedure. Informed consent was obtained both verbally and written. The patient was identified in the ultrasound suite and placed in a supine position. The bilateral lower quadrants were interrogated with ultrasound. The right lower quadrant demonstrated a moderate fluid pocket. An appropriate site was chosen for needle entry and this area was marked, prepped and draped in the usual sterile fashion. A procedural "time out" was performed to ensure that correct patient, site and procedure were being performed. Local infiltrative anesthesia was achieved using 1% Xylocaine. A #19-gauge Acunuesis catheter was advanced through the abdominal wall under continuous negative pressure until serous fluid was aspirated. The needle was removed and the catheter was advanced. Approximately 5650 mL of cloudy yellow fluid were removed. The catheter was then removed, hemostasis was achieved and a soft dressing was applied at the entry site. The patient tolerated the procedure well, had no immediate complications and was discharged back to his floor. Reviewed by ALFREDO Fernández 12/18/2016 12:07 PEdited and Signed by Jono Dahl MD 12/18/2016 07:14 P
[2016-12-17] MEDS: FAMOTIDINE 20 MG TAB PO SCH (20:13)
[2016-12-17 22:00] VITALS: BP 114/63
[2016-12-17 22:03] LABS: CC BF DIFF EXAM CYTOCENTRIFUGE
[2016-12-17] MEDS ORDERED: LevoFLOXacin IV 500 MG in APPROPRIATE DILUENT 1 EA IV SCH (23:00)
[2016-12-18 06:00] VITALS: BP 115/60
[2016-12-18 06:13] LABS: MEAN CORPUSCULAR HEMOGLOBIN 37.7 pg (27.0-33.0); MEAN CORPUSCULAR HGB CONC 33.7 g/dl (32.0-36.5); MEAN CORPUSCULAR VOLUME 111.9 fl (80.0-96.0); RED CELL DISTRIBUTION WIDTH 15.5 % (11.5-14.5); WHITE BLOOD COUNT 10.7 K/mm3 (4.0-10.0)
[2016-12-18 06:30] LABS: ALBUMIN 1.7 GM/DL (3.2-5.2); ALBUMIN/GLOBULIN RATIO 0.38 (1.00-1.93); ALKALINE PHOSPHATASE 394 U/L (45-117); ALT/SGPT 72 U/L (12-78); ANION GAP 8 MEQ/L (8-16); AST/SGOT 89 U/L (15-37); BILIRUBIN,TOTAL 2.7 MG/DL (0.2-1.0); BLOOD UREA NITROGEN 13 MG/DL (7-18); CALCIUM LEVEL 7.4 MG/DL (8.5-10.1); CARBON DIOXIDE LEVEL 25 MEQ/L (21-32); CHLORIDE LEVEL 102 MEQ/L (98-107); CREATININE FOR GFR 0.66 MG/DL (0.70-1.30); GLOMERULAR FILTRATION RATE > 60.0 (>56); GLUCOSE, FASTING 94 MG/DL (70-105); POTASSIUM SERUM 3.9 MEQ/L (3.5-5.1); SODIUM LEVEL 135 MEQ/L (136-145); TOTAL PROTEIN 6.2 GM/DL (6.4-8.2)
[2016-12-18] MEDS: PANTOPRAZOLE 40MG INJ (PROTONIX) (C9113) IV SCH (08:00)
[2016-12-18] MEDS: LACTULOSE 20 GM/30 ML SYRUP UD PO SCH (08:00)
[2016-12-18] MEDS: SPIRONOLACTONE 50 MG TAB PO SCH (08:01)
[2016-12-18] MEDS: THIAMINE 100 MG TAB PO SCH (08:01)
[2016-12-18] MEDS: predniSONE 20 MG TAB PO SCH (08:01)
[2016-12-18] MEDS: rifAXIMin 550 MG TAB (XIFAXAN) PO SCH (08:01)
[2016-12-18] MEDS: ENOXAPARIN 40 MG/0.4 ML SYRINGE (J1650) SC SCH (08:01)
[2016-12-18] MEDS: FOLIC ACID 1 MG TAB PO SCH (08:01)
[2016-12-18] MEDS: FUROSEMIDE 40 MG TAB PO SCH (08:01)
[2016-12-18] MEDS: GABAPENTIN 100 MG CAP PO SCH (08:04)
--- NOTE | 2016-12-19 15:14 | DSES ---
DATE OF ADMISSION: 12/16/2016 DATE OF DISCHARGE: 12/18/2016 PRIMARY CARE PROVIDER: [facility]. FINAL DIAGNOSES: 1. Abdominal pain secondary to tense ascites, rule out spontaneous bacterial peritonitis. 2. Alcoholic cirrhosis. 3. Alcoholic hepatitis. 4. Chronic anemia. 5. Gastroesophageal reflux disease. HISTORY OF PRESENT ILLNESS: This is a 56-year-old male patient with underlying medical history of alcoholic cirrhosis with ascites who presented to the hospital with worsening abdominal pain. History is provided by the patient and chart review. As per patient, patient is a heavy drinker, but he quit drinking since 11/18/2016, and has been hospitalized for several times for the same issue. Patient underwent several times paracentesis to rule out spontaneous bacterial peritonitis. Recently patient has been admitted on 12/06/2016 and discharged home on 12/09/2016. Was also discharged on oral prednisone for alcoholic hepatitis. During admission, patient was consulted infectious disease as well as gastroenteritis. Patient still had the same chronic abdominal pain. In the last few days prior to admission pain had been getting worse gradually, and patient reported diffuse sharp, persistent, about a 10/10 in severity, feeling worsening distention. Denies any nausea, vomiting, or hematemesis. No blood in the stool. No relieving or exacerbating factor. No radiation. HOSPITAL COURSE: Patient was admitted to the hospital, initially started on intravenous (IV) antibiotics. Home medications were continued. A paracentesis was scheduled and was shown to be negative for spontaneous bacterial peritonitis, but after paracentesis patient's symptoms had resolved with pain that had resolved. Fluid restriction. Diuretics were continued. Strict intake and output. Deep vein thrombosis (DVT) prophylaxis was provided. Patient currently returned to baseline, comfortable, ready for discharge for further care. PHYSICAL EXAMINATION: VITAL SIGNS: Temperature 98.8, pulse 96, respirations 18, blood pressure 115/60, pulse oximetry 96% on room air. GENERAL: Patient alert and oriented times three in no acute distress. HEENT: Normocephalic, atraumatic. PULMONARY: Bilaterally clear to auscultation. CARDIAC: Regular rate and rhythm. Normal S1, S2. ABDOMEN: Caput medusa. Ascites has improved. Currently soft with positive fluid wave. EXTREMITIES: No clubbing, cyanosis, or edema. LABORATORY DATA: WBC 10.7, hemoglobin and hematocrit 9.6/28.6, platelets 141. Chemistry: Sodium 135, potassium 3.9, chloride 102, bicarbonate 25, BUN 13, creatinine 0.66. INR 1.27. 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 Setup for weekly paracentesis has been made. Return to the hospital if symptoms worsen. Fluid restriction, 1.8 liters.
[2017-01-07] MEDS ORDERED: TRAM50TA2 PO (16:34)
[2017-01-25] MEDS ORDERED: ZANTTAB PO (15:38)
[2017-02-26] MEDS ORDERED: THIA100TA PO (16:56)
[2017-02-26] MEDS ORDERED: FAMO40TA3 PO (16:56)
[2017-02-26] MEDS ORDERED: RANI150T PO (16:56)
[2017-02-26] MEDS ORDERED: GABA-279 PO (16:56)
[2017-02-26] MEDS ORDERED: FOLI1TAB4 PO (16:56)
[2017-02-26] MEDS ORDERED: FURO40TA2 PO (16:56)
[2017-02-26] MEDS ORDERED: [UNRECOGNIZED DRUG - CODE] PO (16:56)
== END 2016-12-18 12:51 | disposition home or self-care (01) | DRG 280 ==
LOC: M ED 17:55 → M ED INP 21:55 → M MSPAV 23:38
PROVIDERS: ADMIT Hospitalist; ATTEND Hospitalist
PROC: 0W9G3ZZ Drainage of Peritoneal Cavity, Percutaneous Approach (ICD-10-PCS; principal; 2016-12-17)
DX: K70.31 Alcoholic cirrhosis of liver with ascites (principal); E72.20 Disorder of urea cycle metabolism, unspecified; K70.11 Alcoholic hepatitis with ascites; D63.8 Anemia in other chronic diseases classified elsewhere; K21.9 Gastro-esophageal reflux disease without esophagitis; I10 Essential (primary) hypertension; D72.829 Elevated white blood cell count, unspecified; E78.5 Hyperlipidemia, unspecified; Z87.442 Personal history of urinary calculi; Z87.891 Personal history of nicotine dependence; Z79.52 Long term (current) use of systemic steroids; Z79.899 Other long term (current) drug therapy

== ENCOUNTER → 2016-12-24 | Outpatient (CLI) | payer OTHER ==
[~2016-12-24] MED LIST changes: +FAMO40TA3 PO; +RANI150T PO; +TRAM50TA2 PO; +ZANTTAB PO; +[UNRECOGNIZED DRUG - CODE] PO
--- NOTE | 2016-12-24 16:26 | REP ---
PARACENTESIS: The procedure was performed by ALFREDO Rangel under the direct supervision of Dr. Clark. The procedure along with its risks, benefits, and complications were discussed with the patient prior to the procedure. Informed consent was obtained both verbally and written. The patient was identified in the ultrasound suite and placed in a supine position. Bilateral lower quadrants were interrogated with ultrasound. The right lower quadrant demonstrated a moderate sized fluid pocket. Appropriate site was chosen for needle entry and this area was marked, prepped and draped in the usual sterile fashion. A procedural "time-out" was performed to ensure the correct patient, site and procedure were being performed. Local infiltrative anesthesia was achieved with 1% Xylocaine. A 19 g Inversiones.comesis catheter was advanced through the abdominal wall under continuous negative pressure until serous fluid was aspirated. The needle was removed and the catheter was advanced. Approximately 4800 mL of cloudy yellow fluid was removed. The catheter was then removed. Hemostasis was achieved and a soft dressing was applied to the entry site. The patient had no immediate complications. He tolerated the procedure well and was discharged home in good condition. Reviewed by ALFREDO Fernández 12/24/2016 04:33 PEdited and Signed by Sameer Clark MD 12/25/2016 08:35 A
== END ==
LOC: M RADPRO 12:53
PROVIDERS: ATTEND Hospitalist
DX: K70.31 Alcoholic cirrhosis of liver with ascites (principal); F17.210 Nicotine dependence, cigarettes, uncomplicated; Z88.0 Allergy status to penicillin; Z79.52 Long term (current) use of systemic steroids; Z79.899 Other long term (current) drug therapy

== ENCOUNTER → 2016-12-25 | Outpatient (REF) | payer OTHER | LOC: M SFHCPLAZ 14:09 | PROVIDERS: ATTEND Family Medicine | DX: K70.31 Alcoholic cirrhosis of liver with ascites (principal) ==

== ENCOUNTER → 2016-12-31 | Outpatient (CLI) | payer OTHER ==
--- NOTE | 2016-12-31 17:02 | REP ---
PARACENTESIS: The procedure was performed by ALFREDO Rangel under the direct supervision of Dr. Clark. The procedure along with its risks, benefits, and complications were discussed with the patient prior to the procedure. Informed consent was obtained both verbally and written. The patient was identified in the ultrasound suite and placed in a supine position on the ultrasound table. The bilateral lower quadrants were interrogated with ultrasound. The left lower quadrant demonstrated a moderate sized fluid pocket. An appropriate site was chosen for needle entry and this area was marked, prepped and draped in the usual sterile fashion. A procedural "time-out" was performed to ensure that the correct patient, site and procedure were being performed. Local infiltrative anesthesia was achieved using 1% Xylocaine. A 19-gauge centesis catheter was advanced through the abdominal wall under continuous negative pressure until serous fluid was aspirated. The needle was removed and the catheter was advanced. Approximately 3300 mL of cloudy yellow fluid was removed. The catheter was then removed, hemostasis was achieved and a soft dressing was applied to the entry site. The patient tolerated the procedure well and had no immediate complications. He was discharged home. Reviewed by ALFREDO Fernández 01/01/2017 11:13 AEdited and Signed by Sameer Clark MD 01/01/2017 12:28 P
== END ==
LOC: M RADPRO 12:57
PROVIDERS: ATTEND Hospitalist
DX: K70.31 Alcoholic cirrhosis of liver with ascites (principal); Z88.0 Allergy status to penicillin; F17.210 Nicotine dependence, cigarettes, uncomplicated; Z79.899 Other long term (current) drug therapy

== ENCOUNTER → 2017-01-07 | Outpatient (CLI) | payer OTHER ==
--- NOTE | 2017-01-07 19:43 | REP ---
PARACENTESIS: The procedure was performed by ALFREDO Cervantes under the direct supervision of Dr. Clark. The procedure along with its risks, benefits, and complications were discussed with the patient prior to the procedure. Informed consent was obtained both verbally and written. The patient was identified in the ultrasound suite and placed in a supine position. The bilateral lower quadrants were interrogated with ultrasound. The left lower quadrant demonstrated a moderate sized fluid pocket. An appropriate site was chosen for needle entry and this area was marked, prepped and draped in the usual sterile fashion. A procedural "time out" was performed to ensure that the correct patient, site and procedure were being performed. Local infiltrative anesthesia was achieved with 1% Xylocaine. A 19 gauge centesis catheter was advanced through the abdominal wall under continuous negative pressure until serous fluid was aspirated. The needle was removed and the catheter was advanced. Approximately 3200 Mls of fluid were removed. The catheter was then removed. Hemostasis was achieved and a soft dressing was applied to the entry site. The patient tolerated the procedure well and had no immediate complications. He was discharged home. Reviewed by ALFREDO Fernández 01/08/2017 08:20 AEdited and Signed by Sameer Clark MD 01/08/2017 04:35 P
== END ==
LOC: M RADPRO 11:39
PROVIDERS: ATTEND Hospitalist
DX: K70.31 Alcoholic cirrhosis of liver with ascites (principal); Z88.0 Allergy status to penicillin; F17.210 Nicotine dependence, cigarettes, uncomplicated; Z79.899 Other long term (current) drug therapy; Z79.52 Long term (current) use of systemic steroids

== ENCOUNTER 2017-01-10 13:14 | Outpatient (CLI) | payer OTHER ==
[~2017-01-10] VITALS: Ht 165.1 cm; Wt 73.9 kg
[~2017-01-10 13:14] MED LIST changes: +NS 1,000 ML IV ONE; -RANI150T PO; -ZANTTAB PO; -[UNRECOGNIZED DRUG - CODE] PO
[2017-01-10] MEDS ORDERED: LIDOCAINE 2% INJ 100 MG/5 ML SDV (FOR ANES.) As Ordered ONE (13:36)
[2017-01-10] MEDS ORDERED: PROPOFOL 200 MG/20 ML VIAL As Ordered ONE ×2 (13:36→14:47)
--- NOTE | 2017-01-10 14:56 | ROOR ---
Patient Name: Krunal Machuca Procedure Date: 01/10/2017 2:37 PM Date of : 1960 Age: 56 Room: [facility] Gender: Male Note Status: Finalized Procedure: Upper GI endoscopy Indications: Cirrhosis with suspected esophageal varices, Hepatitis with suspected esophageal varices Providers: Manuel FERREIRA MD Referring MD: Deepa Pierce, [facility], Admin. Requesting Provider: Medicines: Monitored Anesthesia Care Complications: No immediate complications. Procedure: Pre-Anesthesia Assessment: - The heart rate, respiratory rate, oxygen saturations, blood pressure, adequacy of pulmonary ventilation, and response to care were monitored throughout the procedure. The Endoscope was introduced through the mouth, and advanced to the second part of duodenum. The upper GI endoscopy was accomplished without difficulty. The patient tolerated the procedure well. Findings: Grade II varices were found in the lower third of the esophagus. Six bands were successfully placed with complete eradication, resulting in deflation of varices. Mild portal hypertensive gastropathy was found in the entire examined stomach. The examined duodenum was normal. Impression: - Grade II esophageal varices. Banded x6 bands. - Portal hypertensive gastropathy. - Normal examined duodenum. - No specimens collected. Recommendation: - Stop Zantac, start Omeprazole 40 mg daily. - Use Viscous Lidocaine at 2% 5 mL PO q 4 hrs PRN. - Return to my office in 3-4 weeks. (my office will call you to reschedule) - Repeat upper endoscopy in 1 month for retreatment. - (the script was sent to your pharmacy on file) Manuel Ferreira MD Manuel FERREIRA MD 01/10/2017 2:56:01 PM This report has been signed electronically. Number of Addenda: 0 Note Initiated On: 01/10/2017 2:37 PM Estimated Blood Loss: Estimated blood loss: none.
[2017-01-10 15:27] VITALS: BP 116/71
[2017-01-25] MEDS ORDERED: ZANTTAB PO (15:38)
[2017-02-26] MEDS ORDERED: FURO40TA2 PO (16:56)
[2017-02-26] MEDS ORDERED: THIA100TA PO (16:56)
[2017-02-26] MEDS ORDERED: FAMO40TA3 PO (16:56)
[2017-02-26] MEDS ORDERED: GABA-279 PO (16:56)
[2017-02-26] MEDS ORDERED: FOLI1TAB4 PO (16:56)
[2017-02-26] MEDS ORDERED: RANI150T PO (16:56)
[2017-02-26] MEDS ORDERED: [UNRECOGNIZED DRUG - CODE] PO (16:56)
== END 2017-01-10 15:50 | disposition home or self-care (01) ==
LOC: M OPP 13:14
PROVIDERS: ATTEND Internal Medicine Gastroenterology
DX: K74.60 Unspecified cirrhosis of liver (principal); I85.10 Secondary esophageal varices without bleeding; K75.9 Inflammatory liver disease, unspecified; K76.6 Portal hypertension; K31.89 Other diseases of stomach and duodenum; K21.9 Gastro-esophageal reflux disease without esophagitis; I10 Essential (primary) hypertension; R12 Heartburn; F41.9 Anxiety disorder, unspecified; F17.210 Nicotine dependence, cigarettes, uncomplicated; F10.21 Alcohol dependence, in remission; Z88.0 Allergy status to penicillin; Z79.899 Other long term (current) drug therapy; Z79.52 Long term (current) use of systemic steroids

== ENCOUNTER → 2017-01-14 | Outpatient (CLI) | payer OTHER ==
[~2017-01-14] MED LIST changes: -NS 1,000 ML IV ONE; +RANI150T PO; +ZANTTAB PO; +[UNRECOGNIZED DRUG - CODE] PO
--- NOTE | 2017-01-14 18:55 | REP ---
Ultrasound-guided paracentesis The procedure was performed under the direct supervision of Dr. Bal. The risks and benefits of the procedure were explained to the patient and informed consent was obtained. The largest pocket of fluid was localized in the left flank using ultrasound guidance. The skin was prepped and draped in a sterile fashion. 1% lidocaine was used as a local anesthetic. An 8-Kyrgyz multi side-hole catheter was inserted using trocar technique. 5,450 ml of cloudy yellow fluid was withdrawn and discarded. The the patient tolerated the procedure well and there were no immediate complications. After the appropriate amount of monitored convalescence the patient was discharged from the department. Reviewed by ALFREDO English 01/14/2017 03:17 PSigned by Chacorta Bal MD 01/14/2017 06:46 P
== END ==
LOC: M RADPRO 12:22
PROVIDERS: ATTEND Hospitalist
DX: K70.31 Alcoholic cirrhosis of liver with ascites (principal); F17.210 Nicotine dependence, cigarettes, uncomplicated; Z88.0 Allergy status to penicillin; Z79.52 Long term (current) use of systemic steroids; Z79.899 Other long term (current) drug therapy

== ENCOUNTER → 2017-01-25 | Outpatient (CLI) | payer OTHER ==
--- NOTE | 2017-01-25 16:50 | REP ---
Ultrasound-guided paracentesis The procedure was performed under the direct supervision of Dr. Bal. The risks and benefits of the procedure were explained to the patient and informed consent was obtained. The largest pocket of fluid was localized in the right lower quadrant using ultrasound guidance. The skin was prepped and draped in a sterile fashion. 1% lidocaine was used as a local anesthetic. An 8-Haitian multi side-hole catheter was inserted using trocar technique. 6,500 ml of yellow fluid was withdrawn and discarded. The patient tolerated the procedure well and there were no immediate complications. After the appropriate amount of monitored convalescence the patient was discharged from the department. Reviewed by ALFREDO English 01/25/2017 04:17 PSigned by Chacorta Bal MD 01/25/2017 04:41 P
== END ==
LOC: M RADPRO 13:15
PROVIDERS: ATTEND Hospitalist
DX: K70.31 Alcoholic cirrhosis of liver with ascites (principal); I10 Essential (primary) hypertension; E78.00 Pure hypercholesterolemia, unspecified; D64.9 Anemia, unspecified; F17.210 Nicotine dependence, cigarettes, uncomplicated; Z87.442 Personal history of urinary calculi; Z79.891 Long term (current) use of opiate analgesic; Z79.899 Other long term (current) drug therapy; Z88.0 Allergy status to penicillin

== ENCOUNTER → 2017-02-01 | Outpatient (CLI) | payer OTHER ==
--- NOTE | 2017-02-01 15:15 | REP ---
Ultrasound-guided paracentesis The procedure was performed under the direct supervision of Dr. Bal. The risks and benefits of the procedure were explained to the patient and informed consent was obtained. The largest pocket of fluid was localized in the left upper quadrant using ultrasound guidance. The skin was prepped and draped in a sterile fashion. 1% lidocaine was used as a local anesthetic. An 8-Albanian multi side-hole catheter was inserted using trocar technique. 6800 ml of cloudy yellow fluid was withdrawn and discarded. The the patient tolerated the procedure well and there were no immediate complications. After the appropriate amount of monitored convalescence the patient was discharged from the department. Reviewed by ALFREDO English 02/01/2017 12:50 PSigned by Chacorta Bal MD 02/01/2017 03:06 P
== END ==
LOC: M RADPRO 09:48
PROVIDERS: ATTEND Hospitalist
DX: K70.31 Alcoholic cirrhosis of liver with ascites (principal); Z87.891 Personal history of nicotine dependence; Z88.0 Allergy status to penicillin; Z79.899 Other long term (current) drug therapy

== ENCOUNTER → 2017-02-08 | Outpatient (CLI) | payer OTHER ==
--- NOTE | 2017-02-08 19:29 | REP ---
Ultrasound-guided paracentesis The procedure was performed under the direct supervision of Dr. Clark. The risks and benefits of the procedure were explained to the patient and informed consent was obtained. The largest pocket of fluid was localized in the left upper quadrant using ultrasound guidance. The skin was prepped and draped in a sterile fashion. 1% lidocaine was used as a local anesthetic. An 8-Niuean multi side-hole catheter was inserted using trocar technique. 5500 ml of clear yellow fluid was withdrawn and discarded. The the patient tolerated the procedure well and there were no immediate complications. After the appropriate amount of monitored convalescence the patient was discharged from the department. Reviewed by ALFREDO English 02/08/2017 02:49 PSigned by Sameer Clark MD 02/08/2017 07:19 P
== END ==
LOC: M RADPRO 10:13
PROVIDERS: ATTEND Hospitalist
DX: R18.8 Other ascites (principal); K74.60 Unspecified cirrhosis of liver; F17.210 Nicotine dependence, cigarettes, uncomplicated; Z88.0 Allergy status to penicillin; Z79.899 Other long term (current) drug therapy

== ENCOUNTER → 2017-02-15 | Outpatient (CLI) | payer OTHER ==
--- NOTE | 2017-02-15 12:46 | REP ---
PARACENTESIS: The procedure was performed by ALFREDO Cervantes under the direct supervision of Dr. Clark. The procedure along with its risks, benefits and complications were discussed with the patient prior to the examination. Informed consent was obtained both verbally and written. The patient was identified in the ultrasound suite and placed in the supine position. The bilateral lower quadrants were interrogated with ultrasound. The right lower quadrant showed a moderate-sized fluid collection. An appropriate site was chosen for needle entry and this area was marked, prepped and draped in the usual sterile fashion. A procedural time-out was performed to ensure that the correct patient, site and procedure were being performed. Local infiltrate of anesthesia was achieved using 1% Xylocaine. A 19-gauge centesis catheter was advanced through the abdominal wall under continuous negative pressure until serous fluid was aspirated. The needle was removed and the catheter was advanced. Approximately 7200 mL of cloudy yellow fluid was aspirated. The catheter was then removed. Hemostasis was achieved and a soft dressing was applied to the entry site. The patient tolerated the procedure well and had no immediate complications. Reviewed by ALFREDO Fernández 02/15/2017 01:24 PEdited and Signed by Sameer Clark MD 02/15/2017 05:12 P
== END ==
LOC: M RADPRO 10:18
PROVIDERS: ATTEND Hospitalist
DX: K70.31 Alcoholic cirrhosis of liver with ascites (principal); Z79.891 Long term (current) use of opiate analgesic; Z79.899 Other long term (current) drug therapy; Z88.0 Allergy status to penicillin

== ENCOUNTER → 2017-02-18 | Outpatient (CLI) | payer OTHER ==
[2017-02-18 10:32] LABS: BASO % 0.3 % (0.0-1.0); EOS % 0.1 % (0.0-3.0); IMMATURE GRANULOCYTE % 1.1 % (0-0); LYMPH # 1.4 10^3/uL (1.5-4.5); MEAN CORPUSCULAR HEMOGLOBIN 33.8 pg (27.0-33.0); MEAN CORPUSCULAR HGB CONC 34.9 g/dl (32.0-36.5); MEAN CORPUSCULAR VOLUME 96.8 fl (80.0-96.0); MONO # 0.9 10^3/uL (0.0-0.8); MONO % 7.6 % (0.0-5.0); NEUTROPHILS # 9.2 10^3/uL (1.8-7.7); NEUTROPHILS % 78.9 % (36.0-66.0); PLATELET COUNT, AUTOMATED 176 10^3/uL (150-450); RED CELL DISTRIBUTION WIDTH 13.9 % (11.5-14.5); WHITE BLOOD COUNT 11.6 10^3/uL (4.0-10.0)
[2017-02-18 10:34] LABS: ADD MANUAL DIFFER NO; DIFF SLIDE NUMBER 165
[2017-02-18 10:53] LABS: INR 1.2
[2017-02-18 11:06] LABS: ALBUMIN/GLOBULIN RATIO 0.35 (1.00-1.93); ALKALINE PHOSPHATASE 529 U/L (45-117); ALT/SGPT 39 U/L (12-78); ANION GAP 8 MEQ/L (8-16); AST/SGOT 90 U/L (15-37); BILIRUBIN,DIRECT 1.8 MG/DL (0.0-0.2); BILIRUBIN,TOTAL 2.7 MG/DL (0.2-1.0); BLOOD UREA NITROGEN 19 MG/DL (7-18); CALCIUM LEVEL 8.2 MG/DL (8.5-10.1); CARBON DIOXIDE LEVEL 23 MEQ/L (21-32); CHLORIDE LEVEL 98 MEQ/L (98-107); GLOMERULAR FILTRATION RATE > 60.0 (>56); GLUCOSE, FASTING 116 MG/DL (70-105); POTASSIUM SERUM 4.9 MEQ/L (3.5-5.1); SODIUM LEVEL 129 MEQ/L (136-145); TOTAL PROTEIN 7.7 GM/DL (6.4-8.2)
== END ==
LOC: M LAB 10:14
PROVIDERS: ATTEND Internal Medicine Gastroenterology
DX: K70.11 Alcoholic hepatitis with ascites (principal); K70.31 Alcoholic cirrhosis of liver with ascites

== ENCOUNTER → 2017-02-22 | Outpatient (CLI) | payer OTHER ==
--- NOTE | 2017-02-22 12:17 | REP ---
LEFT SIDE PARACENTESIS: The procedure was performed by ALFREDO Rangel under the direct supervision of Dr. Bal. The procedure along with its risks, benefits, and complications were discussed with the patient prior to the examination. Informed consent was obtained both verbally and written. The patient was identified in the ultrasound suite and placed in a supine position. The bilateral lower quadrants were interrogated with ultrasound. The left lower quadrant demonstrated a moderate sized fluid collection. An appropriate site was chosen for needle entry and this area was marked, prepped, and draped in the usual sterile fashion. A procedural time-out was performed in order to ensure that the correct patient procedure and site were performed. Local infiltrative anesthesia was achieved using 1% Xylocaine. A 8-Serbian Centesis Catheter was advanced through the abdominal wall under continuous negative pressure until serous fluid was aspirated. The needle was removed and the catheter was advanced. Approximately 6900 mL of cloudy yellow fluid was removed. The catheter was then removed, hemostasis was achieved, and a soft dressing was applied to the entry site. The patient tolerated the procedure well and had no immediate complications. Reviewed by ALFREDO Fernández 02/22/2017 03:37 PEdited and Signed by Chacorta Bal MD 02/22/2017 03:48 P
== END ==
LOC: M RADPRO 10:11
PROVIDERS: ATTEND Hospitalist
DX: K70.31 Alcoholic cirrhosis of liver with ascites (principal); K73.9 Chronic hepatitis, unspecified; I10 Essential (primary) hypertension; E78.00 Pure hypercholesterolemia, unspecified; F17.210 Nicotine dependence, cigarettes, uncomplicated; Z79.891 Long term (current) use of opiate analgesic; Z79.899 Other long term (current) drug therapy; Z88.0 Allergy status to penicillin

== ENCOUNTER → 2017-03-01 | Outpatient (CLI) | payer OTHER ==
--- NOTE | 2017-03-01 19:26 | REP ---
Ultrasound-guided paracentesis The procedure was performed under the direct supervision of Dr. Bal. The risks and benefits of the procedure were explained to the patient and informed consent was obtained. The largest pocket of fluid was localized in the left upper quadrant. using ultrasound guidance. The skin was prepped and draped in a sterile fashion. 1% lidocaine was used as a local anesthetic. An 8-Lithuanian multi side-hole catheter was inserted using trocar technique. 7000 ml of yellow fluid was withdrawn and discarded. The the patient tolerated the procedure well and there were no immediate complications. After the appropriate amount of monitored convalescence the patient was discharged from the department. Reviewed by ALFREDO English 03/01/2017 05:29 PSigned by Chacorta Bal MD 03/01/2017 07:15 P
== END ==
LOC: M RADPRO 10:02
PROVIDERS: ATTEND Hospitalist
DX: K70.31 Alcoholic cirrhosis of liver with ascites (principal); I10 Essential (primary) hypertension; E78.00 Pure hypercholesterolemia, unspecified; K73.9 Chronic hepatitis, unspecified; D64.9 Anemia, unspecified; Z88.0 Allergy status to penicillin; Z79.891 Long term (current) use of opiate analgesic; Z79.899 Other long term (current) drug therapy; Z87.891 Personal history of nicotine dependence; Z87.442 Personal history of urinary calculi

== ENCOUNTER 2017-03-07 08:34 | Day surgery (SDC) | payer OTHER ==
[~2017-03-07] VITALS: Ht 165.1 cm; Wt 71.2 kg
[2017-03-07] MEDS ORDERED: NS 500 ML IV ONE (08:45)
[2017-03-07] MEDS ORDERED: fentaNYL 100 MCG/2 ML INJECTION (J3010) As Ordered ONE (10:32)
[2017-03-07] MEDS ORDERED: PROPOFOL 200 MG/20 ML VIAL As Ordered ONE (10:33)
[2017-03-07] MEDS ORDERED: LIDOCAINE 2% INJ 100 MG/5 ML SDV (FOR ANES.) As Ordered ONE (10:33)
--- NOTE | 2017-03-07 11:04 | ROOR ---
Patient Name: Krunal Machuca Procedure Date: 03/07/2017 10:31 AM Date of : 1960 Age: 56 Room: [facility] Gender: Male Note Status: Finalized Procedure: Upper GI endoscopy Indications: Cirrhosis rule out esophageal varices, Follow-up of esophageal varices Providers: Manuel FERREIRA MD Referring MD: Mal Cordero Requestsky Provider: Medicines: Monitored Anesthesia Care Complications: No immediate complications. Procedure: Pre-Anesthesia Assessment: - The heart rate, respiratory rate, oxygen saturations, blood pressure, adequacy of pulmonary ventilation, and response to care were monitored throughout the procedure. The Endoscope was introduced through the mouth, and advanced to the second part of duodenum. The upper GI endoscopy was accomplished without difficulty. The patient tolerated the procedure well. Findings: Grade I, grade II varices were found in the lower third of the esophagus. They were medium in size. Three bands were successfully placed with complete eradication, resulting in deflation of varices. Mild portal hypertensive gastropathy was found in the entire examined stomach. The exam was otherwise without abnormality. Impression: - Grade I and grade II esophageal varices. Completely eradicated. Banded. - Portal hypertensive gastropathy. - The examination was otherwise normal. - No specimens collected. Recommendation: - Return to my office in 1 month. - Observe patient's clinical course. Manuel Ferreira MD Manuel FERREIRA MD 03/07/2017 11:04:07 AM This report has been signed electronically. Number of Addenda: 0 Note Initiated On: 03/07/2017 10:31 AM Estimated Blood Loss: Estimated blood loss: none.
[2017-03-07 11:20] VITALS: BP 125/90
== END 2017-03-07 11:39 | disposition home or self-care (01) ==
LOC: M OPP 08:34
PROVIDERS: ATTEND Internal Medicine Gastroenterology
DX: K74.60 Unspecified cirrhosis of liver (principal); I85.10 Secondary esophageal varices without bleeding; K76.6 Portal hypertension; K31.89 Other diseases of stomach and duodenum; I10 Essential (primary) hypertension; K21.9 Gastro-esophageal reflux disease without esophagitis; F41.9 Anxiety disorder, unspecified; F10.10 Alcohol abuse, uncomplicated; R23.3 Spontaneous ecchymoses; R06.02 Shortness of breath; F17.210 Nicotine dependence, cigarettes, uncomplicated; Z88.0 Allergy status to penicillin; Z79.899 Other long term (current) drug therapy
CPT/HCPCS: 43244; J3010

== ENCOUNTER → 2017-03-08 | Outpatient (CLI) | payer OTHER ==
--- NOTE | 2017-03-11 10:08 | REP ---
Ultrasound-guided paracentesis The procedure was performed under the direct supervision of Dr. Clark. The risks and benefits of the procedure were explained to the patient and informed consent was obtained. The largest pocket of fluid was localized in the right flank using ultrasound guidance. The skin was prepped and draped in a sterile fashion. 1% lidocaine was used as a local anesthetic. An 8-English multi side-hole catheter was inserted using trocar technique. 5,100 ml of yellow fluid was withdrawn and discarded. The the patient tolerated the procedure well and there were no immediate complications. After the appropriate amount of monitored convalescence the patient was discharged from the department. Reviewed by ALFREDO English 03/08/2017 10:38 ASigned by Sameer Clark MD 03/11/2017 09:57 A
== END ==
LOC: M RADPRO 09:09
PROVIDERS: ATTEND Hospitalist
DX: K70.31 Alcoholic cirrhosis of liver with ascites (principal); F17.210 Nicotine dependence, cigarettes, uncomplicated; Z88.0 Allergy status to penicillin; Z79.52 Long term (current) use of systemic steroids; Z79.899 Other long term (current) drug therapy

== ENCOUNTER → 2017-03-13 | Outpatient (REF) | payer OTHER ==
[2017-03-13 14:53] LABS: BASO % 0.4 % (0.0-1.0); EOS # 0.1 10^3/uL (0.0-0.50); EOS % 0.6 % (0.0-3.0); IMMATURE GRANULOCYTE % 1.5 % (0-0); LYMPH # 1.6 10^3/uL (1.5-4.5); MEAN CORPUSCULAR HGB CONC 34.6 g/dl (32.0-36.5); MEAN CORPUSCULAR VOLUME 98.2 fl (80.0-96.0); MONO # 1.4 10^3/uL (0.0-0.8); MONO % 12.1 % (0.0-5.0); NEUTROPHILS % 71.4 % (36.0-66.0); PLATELET COUNT, AUTOMATED 192 10^3/uL (150-450); WHITE BLOOD COUNT 11.3 10^3/uL (4.0-10.0)
[2017-03-13 15:04] LABS: ALBUMIN 2.1 GM/DL (3.2-5.2); ALBUMIN/GLOBULIN RATIO 0.42 (1.00-1.93); ALKALINE PHOSPHATASE 479 U/L (45-117); ALT/SGPT 44 U/L (12-78); ANION GAP 8 MEQ/L (8-16); AST/SGOT 93 U/L (15-37); BILIRUBIN,TOTAL 2.3 MG/DL (0.2-1.0); BLOOD UREA NITROGEN 17 MG/DL (7-18); CALCIUM LEVEL 8.4 MG/DL (8.5-10.1); CARBON DIOXIDE LEVEL 25 MEQ/L (21-32); CHLORIDE LEVEL 98 MEQ/L (98-107); CREATININE FOR GFR 0.93 MG/DL (0.70-1.30); GLOMERULAR FILTRATION RATE > 60.0 (>56); GLUCOSE, FASTING 115 MG/DL (70-105); POTASSIUM SERUM 4.4 MEQ/L (3.5-5.1); SODIUM LEVEL 131 MEQ/L (136-145); TOTAL PROTEIN 7.1 GM/DL (6.4-8.2)
== END ==
LOC: M SFHCPLAZ 10:36
PROVIDERS: ATTEND Family Medicine
DX: K70.31 Alcoholic cirrhosis of liver with ascites (principal)

== ENCOUNTER → 2017-03-29 | Outpatient (CLI) | payer OTHER ==
--- NOTE | 2017-03-29 16:51 | REP ---
Ultrasound-guided paracentesis The procedure was performed under the direct supervision of Dr. Bal. The risks and benefits of the procedure were explained to the patient and informed consent was obtained. The largest pocket of fluid was localized in the right flank using ultrasound guidance. The skin was prepped and draped in a sterile fashion. 1% lidocaine was used as a local anesthetic. An 8-Slovak multi side-hole catheter was inserted using trocar technique. 8,550 ml of yellow fluid was withdrawn and discarded The the patient tolerated the procedure well and there were no immediate complications. After the appropriate amount of monitored convalescence the patient was discharged from the department. Reviewed by ALFREDO English 03/29/2017 04:19 PSigned by Chacorta Bal MD 03/29/2017 04:42 P
== END ==
LOC: M RADPRO 09:03
PROVIDERS: ATTEND Family Medicine
DX: K70.31 Alcoholic cirrhosis of liver with ascites (principal); F17.210 Nicotine dependence, cigarettes, uncomplicated; Z88.0 Allergy status to penicillin; Z79.899 Other long term (current) drug therapy

== ENCOUNTER → 2017-04-05 | Outpatient (CLI) | payer OTHER ==
--- NOTE | 2017-04-05 15:49 | REP ---
Ultrasound-guided paracentesis The procedure was performed under the direct supervision of Dr. Clark. The risks and benefits of the procedure were explained to the patient and informed consent was obtained. The largest pocket of fluid was localized in the right flank using ultrasound guidance. The skin was prepped and draped in a sterile fashion. 1% lidocaine was used as a local anesthetic. An 8-Upper Sorbian multi side-hole catheter was inserted using trocar technique. 7,500 ml of yellow fluid was withdrawn and discarded. The the patient tolerated the procedure well and there were no immediate complications. After the appropriate amount of monitored convalescence the patient was discharged from the department. Reviewed by ALFREDO English 04/05/2017 03:33 PSigned by Sameer Clark MD 04/05/2017 03:40 P
== END ==
LOC: M RADPRO 08:58
PROVIDERS: ATTEND Family Medicine
DX: K70.31 Alcoholic cirrhosis of liver with ascites (principal); F17.210 Nicotine dependence, cigarettes, uncomplicated; Z88.0 Allergy status to penicillin; Z79.52 Long term (current) use of systemic steroids; Z79.899 Other long term (current) drug therapy

== ENCOUNTER → 2017-04-10 | Outpatient (CLI) | payer OTHER ==
--- NOTE | 2017-04-10 11:52 | REP ---
PARACENTESIS: The procedure was performed by ALFREDO Rangel, under the direct supervision of Dr. Clark. The procedure along with its risks, benefits and complications were discussed with the patient prior to the examination. Informed consent was obtained both verbally and written. The patient was identified in the ultrasound suite and placed in supine position. The bilateral lower quadrants were interrogated with ultrasound. The right lower quadrant demonstrated a moderate size fluid collection and appropriate site was chosen for needle entry and this area was marked, prepped and draped in the usual sterile fashion. A procedural time out was performed to ensure that the correct, patient, site and procedure were being performed. Local infiltrative anesthesia was achieved using 1% lidocaine. An 8-Tajik Centesis catheter was advanced through the abdominal wall under continuous negative pressure until serous fluid was aspirated. The needle was removed and the catheter was advanced. Approximately 8900 mL of cloudy yellow fluid was removed. The catheter was then removed. Hemostasis was achieved and a soft dressing was applied to the entry site. The patient tolerated the procedure well and had no immediate complications. IMPRESSION: Uncomplicated right paracentesis yielding 8900 mL of cloudy yellow fluid. Reviewed by ALFREDO Fernández 04/10/2017 01:56 PEdited and Signed by Sameer Clark MD 04/10/2017 02:32 P
== END ==
LOC: M RADPRO 09:03
PROVIDERS: ATTEND Student in an Organized Health Care Education/Training Program
DX: K70.31 Alcoholic cirrhosis of liver with ascites (principal); F17.210 Nicotine dependence, cigarettes, uncomplicated; Z88.0 Allergy status to penicillin; Z79.52 Long term (current) use of systemic steroids; Z79.899 Other long term (current) drug therapy

== ENCOUNTER → 2017-04-15 | Outpatient (CLI) | payer OTHER ==
--- NOTE | 2017-04-15 16:44 | REP ---
Ultrasound-guided paracentesis The procedure was performed under the direct supervision of Dr. Bal. The risks and benefits of the procedure were explained to the patient and informed consent was obtained. The largest pocket of fluid was localized in the left flank using ultrasound guidance. The skin was prepped and draped in a sterile fashion. 1% lidocaine was used as a local anesthetic. An 8-South Sudanese multi side-hole catheter was inserted using trocar technique. 7500 ml of cloudy yellow fluid was withdrawn and discarded. The patient tolerated the procedure well and there were no immediate complications. After the appropriate amount of monitored convalescence the patient was discharged from the department. Reviewed by ALFREDO English 04/15/2017 04:17 PSigned by Chacorta Bal MD 04/15/2017 04:35 P
== END ==
LOC: M RADPRO 08:58
PROVIDERS: ATTEND Family Medicine
DX: K70.31 Alcoholic cirrhosis of liver with ascites (principal)

== ENCOUNTER → 2017-04-19 | Outpatient (CLI) | payer OTHER ==
--- NOTE | 2017-04-21 12:40 | REP ---
Ultrasound-guided paracentesis The procedure was performed under the direct supervision of Dr. Bal. The risks and benefits of the procedure were explained to the patient and informed consent was obtained. The largest pocket of fluid was localized in the right flank using ultrasound guidance. The skin was prepped and draped in a sterile fashion. 1% lidocaine was used as a local anesthetic. An 8-Greenlandic multi side-hole catheter was inserted using trocar technique. 4700 ml of yellow colored fluid was withdrawn and discarded. The the patient tolerated the procedure well and there were no immediate complications. After the appropriate amount of monitored convalescence the patient was discharged from the department. Reviewed by ALFREDO English 04/19/2017 05:54 PSigned by Chacorta Bal MD 04/21/2017 12:31 P
== END ==
LOC: M RADPRO 09:52
PROVIDERS: ATTEND Family Medicine
DX: K70.31 Alcoholic cirrhosis of liver with ascites (principal); F17.210 Nicotine dependence, cigarettes, uncomplicated; Z88.0 Allergy status to penicillin; Z79.52 Long term (current) use of systemic steroids; Z79.899 Other long term (current) drug therapy

== ENCOUNTER → 2017-04-30 | Outpatient (CLI) | payer OTHER ==
--- NOTE | 2017-05-01 09:01 | REP ---
Ultrasound-guided paracentesis The procedure was performed under the direct supervision of Dr. Clark. The risks and benefits of the procedure were explained to the patient and informed consent was obtained. The largest pocket of fluid was localized in the right flank using ultrasound guidance. The skin was prepped and draped in a sterile fashion. 1% lidocaine was used as a local anesthetic. An 8-Romanian multi side-hole catheter was inserted using trocar technique. 10,100 mL of cloudy yellow fluid was withdrawn and discarded. The patient tolerated the procedure well and there were no immediate complications. After the appropriate amount of monitored convalescence the patient was discharged from the department. Reviewed by ALFREDO English 04/30/2017 05:48 PSigned by Sameer Clark MD 05/01/2017 08:51 A
== END ==
LOC: M RADPRO 13:37
PROVIDERS: ATTEND Family Medicine
DX: R18.8 Other ascites (principal); Z79.899 Other long term (current) drug therapy; Z88.0 Allergy status to penicillin

== ENCOUNTER → 2017-05-06 | Outpatient (CLI) | payer OTHER ==
--- NOTE | 2017-05-06 18:00 | REP ---
Ultrasound-guided paracentesis The procedure was performed under the direct supervision of Dr. Clark. The risks and benefits of the procedure were explained to the patient and informed consent was obtained. The largest pocket of fluid was localized in the left flank using ultrasound guidance. The skin was prepped and draped in a sterile fashion. 1% lidocaine was used as a local anesthetic. An 8-Tajik multi side-hole catheter was inserted using trocar technique. 8125 mL of cloudy yellow fluid was withdrawn and discarded. The the patient tolerated the procedure well and there were no immediate complications. After the appropriate amount of monitored convalescence the patient was discharged from the department. Reviewed by ALFREDO English 05/06/2017 05:26 PSigned by Sameer Clark MD 05/06/2017 05:50 P
== END ==
LOC: M RADPRO 13:45
PROVIDERS: ATTEND Family Medicine
DX: K70.31 Alcoholic cirrhosis of liver with ascites (principal); F17.210 Nicotine dependence, cigarettes, uncomplicated; Z88.0 Allergy status to penicillin; Z79.52 Long term (current) use of systemic steroids; Z79.899 Other long term (current) drug therapy

== ENCOUNTER → 2017-05-15 | Outpatient (CLI) | payer OTHER ==
--- NOTE | 2017-05-15 16:51 | REP ---
RIGHT SIDED PARACENTESIS: The procedure was performed by ALFREDO Rangel under the direct supervision of Dr. Bal. The procedure along with its risks, benefits, and complications were discussed with the patient prior to the examination. Informed consent was obtained both verbally and written. The patient was identified in the ultrasound suite and placed in a supine position. The bilateral lower quadrants were interrogated with ultrasound. The right lower quadrant demonstrated a moderate sized fluid collection. An appropriate site was chosen for needle entry and this area was marked, prepped, and draped in the usual sterile fashion. A procedural time-out was performed to ensure that the correct patient, site and procedure were being performed. Local infiltrative anesthesia was achieved using 1% Xylocaine. An #8-B[place]i centesis catheter was advanced through the abdominal wall under continuous negative pressure until serous fluid was aspirated. Approximately 5400 mL of cloudy yellow fluid was aspirated. The catheter was then removed. Hemostasis was achieved and a soft dressing was applied to the needle entry site. The patient tolerated the procedure well and had no immediate complications. IMPRESSION: Uncomplicated right side paracentesis yielding 5400 mL of cloudy yellow fluid. Reviewed by ALFREDO Fernández 05/16/2017 09:06 AEdited and Signed by Chacorta Bal MD 05/16/2017 02:30 P
== END ==
LOC: M RADPRO 13:10
PROVIDERS: ATTEND Family Medicine
DX: K70.31 Alcoholic cirrhosis of liver with ascites (principal); Z79.52 Long term (current) use of systemic steroids; Z79.899 Other long term (current) drug therapy; Z88.0 Allergy status to penicillin

== ENCOUNTER → 2017-05-21 | Outpatient (CLI) | payer OTHER | LOC: M RADPRO 12:51 | DX: K70.31 Alcoholic cirrhosis of liver with ascites (principal); K73.1 Chronic lobular hepatitis, not elsewhere classified; Z79.891 Long term (current) use of opiate analgesic; Z79.899 Other long term (current) drug therapy; I10 Essential (primary) hypertension; E78.00 Pure hypercholesterolemia, unspecified; D64.9 Anemia, unspecified; F17.210 Nicotine dependence, cigarettes, uncomplicated; Z87.442 Personal history of urinary calculi | CPT/HCPCS: 49083 ==

== ENCOUNTER → 2017-06-04 | Outpatient (CLI) | payer OTHER | LOC: M RADPRO 12:51 | DX: K70.31 Alcoholic cirrhosis of liver with ascites (principal); K73.1 Chronic lobular hepatitis, not elsewhere classified; Z79.891 Long term (current) use of opiate analgesic; Z79.899 Other long term (current) drug therapy; Z80.0 Family history of malignant neoplasm of digestive organs | CPT/HCPCS: 49083 ==

== ENCOUNTER → 2017-06-11 | Outpatient (CLI) | payer OTHER | LOC: M RADPRO 12:34 | DX: K70.31 Alcoholic cirrhosis of liver with ascites (principal); Z88.0 Allergy status to penicillin; Z79.52 Long term (current) use of systemic steroids; Z79.899 Other long term (current) drug therapy | CPT/HCPCS: 49083 ==

== ENCOUNTER → 2017-06-18 | Outpatient (CLI) | payer OTHER | LOC: M RADPRO 11:16 | DX: K70.31 Alcoholic cirrhosis of liver with ascites (principal); B17.9 Acute viral hepatitis, unspecified; I10 Essential (primary) hypertension; D64.9 Anemia, unspecified; Z79.891 Long term (current) use of opiate analgesic; Z79.899 Other long term (current) drug therapy; Z88.8 Allergy status to other drugs, medicaments and biological substances; Z87.891 Personal history of nicotine dependence; Z87.442 Personal history of urinary calculi | CPT/HCPCS: 49083 ==

== ENCOUNTER → 2017-06-25 | Outpatient (CLI) | payer OTHER | LOC: M RADPRO 11:07 | DX: K70.31 Alcoholic cirrhosis of liver with ascites (principal); Z79.891 Long term (current) use of opiate analgesic; Z79.899 Other long term (current) drug therapy; Z88.0 Allergy status to penicillin | CPT/HCPCS: 49083 ==

== ENCOUNTER → 2017-06-26 | Outpatient (REF) | payer OTHER ==
[2017-06-26 11:53] LABS: BASO % 0.4 % (0.0-1.0); EOS % 0.1 % (0.0-3.0); HEMOGLOBIN 13.1 g/dl (14.0-18.0); IMMATURE GRANULOCYTE % 0.6 % (0-0); LYMPH # 0.5 10^3/uL (1.5-4.5); LYMPH % 7.6 % (24.0-44.0); MEAN CORPUSCULAR HEMOGLOBIN 35.7 pg (27.0-33.0); MEAN CORPUSCULAR HGB CONC 35.4 g/dl (32.0-36.5); MEAN CORPUSCULAR VOLUME 100.8 fl (80.0-96.0); MONO # 0.8 10^3/uL (0.0-0.8); MONO % 11.6 % (0.0-5.0); NEUTROPHILS # 5.5 10^3/uL (1.8-7.7); NEUTROPHILS % 79.7 % (36.0-66.0); PLATELET COUNT, AUTOMATED 124 10^3/uL (150-450); RED BLOOD COUNT 3.67 10^6/uL (4.30-6.10); RED CELL DISTRIBUTION WIDTH 14.6 % (11.5-14.5); WHITE BLOOD COUNT 6.9 10^3/uL (4.0-10.0)
[2017-06-26 12:06] LABS: INR 1.09; PROTHROMBIN TIME 14.3 SECONDS (12.4-14.5)
[2017-06-26 12:07] LABS: PARTIAL THROMBOPLASTIN TIME 36.5 SECONDS (26.8-37.9)
[2017-06-26 12:13] LABS: AMMONIA 81 uMOL/L (<32)
[2017-06-26 12:25] LABS: ALBUMIN 2.4 GM/DL (3.2-5.2); ALBUMIN/GLOBULIN RATIO 0.46 (1.00-1.93); ALKALINE PHOSPHATASE 534 U/L (45-117); ALT/SGPT 38 U/L (12-78); ANION GAP 9 MEQ/L (8-16); AST/SGOT 138 U/L (7-37); BILIRUBIN,TOTAL 3.4 MG/DL (0.2-1.0); BLOOD UREA NITROGEN 26 MG/DL (7-18); CALCIUM LEVEL 8.4 MG/DL (8.5-10.1); CARBON DIOXIDE LEVEL 23 MEQ/L (21-32); CHLORIDE LEVEL 96 MEQ/L (98-107); CREATININE FOR GFR 1.33 MG/DL (0.70-1.30); GLOMERULAR FILTRATION RATE 59.4 (>56); GLUCOSE, FASTING 118 MG/DL (70-100); SODIUM LEVEL 128 MEQ/L (136-145); TOTAL PROTEIN 7.6 GM/DL (6.4-8.2)
[2017-06-26 12:26] LABS: ETHYL ALCOHOL (ETHANOL) < 0.003 % (0.000-0.010)
== END ==
LOC: M SFHCPLAZ 11:40
DX: K70.31 Alcoholic cirrhosis of liver with ascites (principal)
CPT/HCPCS: 80320

== ENCOUNTER → 2017-07-02 | Outpatient (CLI) | payer OTHER | LOC: M RADPRO 11:51 | DX: K70.31 Alcoholic cirrhosis of liver with ascites (principal); Z79.891 Long term (current) use of opiate analgesic; Z79.899 Other long term (current) drug therapy; Z88.0 Allergy status to penicillin | CPT/HCPCS: 49083 ==

== ENCOUNTER → 2017-07-16 | Outpatient (CLI) | payer OTHER ==
[2017-07-16 13:28] LABS: AMMONIA 163 uMOL/L (<32)
== END ==
LOC: M RADPRO 11:53
DX: K70.31 Alcoholic cirrhosis of liver with ascites (principal); Z88.0 Allergy status to penicillin; Z79.52 Long term (current) use of systemic steroids; Z79.899 Other long term (current) drug therapy
CPT/HCPCS: 49083

== ENCOUNTER → 2017-07-23 | Outpatient (CLI) | payer OTHER | LOC: M RADPRO 10:20 | DX: K70.31 Alcoholic cirrhosis of liver with ascites (principal); Z88.0 Allergy status to penicillin; Z79.52 Long term (current) use of systemic steroids; Z79.899 Other long term (current) drug therapy | CPT/HCPCS: 49083 ==

== ENCOUNTER → 2017-07-30 | Outpatient (CLI) | payer OTHER | LOC: M RADPRO 10:52 | DX: K70.31 Alcoholic cirrhosis of liver with ascites (principal); I10 Essential (primary) hypertension; E78.00 Pure hypercholesterolemia, unspecified; D64.9 Anemia, unspecified; Z79.891 Long term (current) use of opiate analgesic; Z79.899 Other long term (current) drug therapy; Z88.0 Allergy status to penicillin; Z87.442 Personal history of urinary calculi | CPT/HCPCS: 49083 ==

== ENCOUNTER → 2017-08-06 | Outpatient (CLI) | payer OTHER | LOC: M RADPRO 11:44 | DX: K70.31 Alcoholic cirrhosis of liver with ascites (principal); Z79.899 Other long term (current) drug therapy; Z79.52 Long term (current) use of systemic steroids; Z88.0 Allergy status to penicillin | CPT/HCPCS: 49083 ==

== ENCOUNTER → 2017-08-13 | Outpatient (CLI) | payer OTHER | LOC: M RADPRO 12:41 | DX: K70.31 Alcoholic cirrhosis of liver with ascites (principal); Z88.0 Allergy status to penicillin; Z79.52 Long term (current) use of systemic steroids; Z79.899 Other long term (current) drug therapy | CPT/HCPCS: 49083 ==

== ENCOUNTER → 2017-08-20 | Outpatient (CLI) | payer OTHER | LOC: M RADPRO 12:34 | DX: K70.31 Alcoholic cirrhosis of liver with ascites (principal); K73.1 Chronic lobular hepatitis, not elsewhere classified; I10 Essential (primary) hypertension; E78.00 Pure hypercholesterolemia, unspecified; D64.9 Anemia, unspecified; R41.0 Disorientation, unspecified; Z79.899 Other long term (current) drug therapy; Z79.891 Long term (current) use of opiate analgesic; Z91.040 Latex allergy status; Z88.0 Allergy status to penicillin; Z87.442 Personal history of urinary calculi | CPT/HCPCS: 49083 ==